=== PATIENT | female | born 1945 | race Caucasian/White ===

== ENCOUNTER 2020-02-25 12:43 | Emergency (ER) | payer MEDICARE, SELFPAY ==
[2020-02-25] VITALS (15 sets, daily range): BP systolic 140–167; BP diastolic 78–122; PULSE 70–92; RESP 12–48; TEMP 37.1; O2SAT 89–100; BMI 15.1
--- NOTE | 2020-02-25 13:12 | DI.CT.S_ITS ---
PROCEDURE: CT HEAD/BRAIN WO CON INDICATIONS: frequent falls TECHNIQUE: Noncontrast 4.5 mm thick angled axial sections acquired from the foramen magnum to the vertex, with coronal and sagittal reformats. For radiation dose reduction, the following was used: automated exposure control, adjustment of mA and/or kV according to patient size. COMPARISON: None. FINDINGS: Image quality: Excellent. CSF spaces: Basal cisterns are patent. No extra-axial fluid collections. The ventricles are symmetric in size and shape. Brain: No intracranial bleeds or masses. There is cerebral volume loss for age, with resultant ventricular and sulcal prominence. There are periventricular and deep white matter chronic small vessel ischemic changes including a lacunar infarct of uncertain chronicity in the left anterior limb internal capsule. There is intracranial internal carotid artery atherosclerosis. Skull and face: Calvarium and visualized facial bones appear intact, without suspicious lesions. Sinuses: Visualized sinuses and mastoids are clear. IMPRESSION: 1. No CT evidence of acute intracranial trauma. 2. No evidence of fracture or overlying soft tissue hematoma. Dictated by: Jess Bosch M.D. on 02/25/2020 at 13:37 Approved by: Jess Bosch M.D. on 02/25/2020 at 13:40
--- NOTE | 2020-02-25 13:12 | DI.RAD.S_ITS ---
PROCEDURE: XR HIP W PEL IF DONE RT 2V INDICATIONS: frequent fall, weak on right leg, difficulty walking TECHNIQUE: AP pelvis with lateral view(s) of the right hip(s). COMPARISON: None. FINDINGS: Bones: No fractures or dislocations. Mild symmetric degenerative femoroacetabular joint space loss. Pelvic ring appears intact. No suspicious bony lesions. Soft tissues: The visualized bowel gas pattern is normal. No suspicious soft tissue calcifications. Surgical clips in the right pelvis. IMPRESSION: 1. No acute or chronic appearing right hip fracture. 2. Mild, symmetric hip joint degeneration. 3. No visible pelvic fractures. Dictated by: Jess Bosch M.D. on 02/25/2020 at 13:53 Approved by: Jess Bosch M.D. on 02/25/2020 at 13:54
--- NOTE | 2020-02-25 13:17 | DI.CT.S_ITS ---
PROCEDURE: CT CERVICAL SPINE WO CON INDICATIONS: frequent falls TECHNIQUE: Noncontrast 3 mm thick sections acquired from the skull base to the T4 level. Sagittal and coronal reformats were then constructed. For radiation dose reduction, the following was used: automated exposure control, adjustment of mA and/or kV according to patient size. COMPARISON: None. FINDINGS: Image quality: Excellent. Bones: No fractures or pathologic subluxation. There is degenerative change at the latter dental interval with mild annular ligament calcification. There is severe degenerative facet joint change on the left at the L4-5 level which results in a grade 1 anterolisthesis and severe left foraminal narrowing. There is uncovertebral joint hypertrophy and facet arthropathy together on the right causing moderate right foraminal narrowing. Severe disc height loss and endplate degeneration at the C six seven levels present. No significant spinal stenosis. There is reversal of normal cervical lordosis in the lower cervical spine with the apex at C6-7. Visualized superior ribs are intact. Soft tissues: Prevertebral soft tissues are normal in thickness. No paravertebral hematomas. No apical pneumothoraces. Mild to moderate carotid bulb calcification. Diminutive thyroid gland.. IMPRESSION: 1. No acute cervical spine fracture or subluxation. 2. There are degenerative changes as described above which result in spondylolisthesis and foraminal narrowing. No significant central canal narrowing. Dictated by: Jess Bosch M.D. on 02/25/2020 at 13:43 Approved by: Jess Bosch M.D. on 02/25/2020 at 13:49
[2020-02-25 13:31] LABS: Add Manual Diff / Slide Review NO; Basophils Absolute Auto 100 /uL (0-100); Basophils Percent Auto 1.1 % (0-2); Eosinophils Absolute Auto 300 /uL (0-450); Eosinophils Percent Auto 3.6 % (2-4); Hematocrit 30.7 % (36-46); Hemoglobin 10.3 g/dL (12.0-16.0); Lymphocytes Absolute Auto 2100 /uL (1100-4500); Lymphocytes Percent Auto 25.7 % (25-40); Mean Corpuscular HGB Conc 33.6 % (30-36); Mean Corpuscular Hemoglobin 35.2 PG (26-34); Mean Corpuscular Volume 104.6 fL (80-100); Monocytes Absolute Auto 800 /uL (0-900); Monocytes Percent Auto 9.5 % (3-14); Neutrophils Absolute Auto 4900 /uL (1500-7000); Neutrophils Percent Auto 60.1 % (50-75); Platelet Count 329 X10^3/uL (150-400); Red Blood Cell Count 2.93 X10^6/uL (4.0-5.2); Red Cell Distribution Width 15.2 % (11.6-14.8); White Blood Cell Count 8.2 X10^3/uL (4.5-11.0)
[2020-02-25 13:38] LABS: INR 1.2 (0.9-1.3); Prothrombin Time 14.2 SECONDS (10.1-12.7)
[2020-02-25 13:41] LABS: PTT Partial Thromboplastin Tim 32 SECONDS (26.4-36.2)
[2020-02-25 13:43] LABS: Alanine Aminotransferase 62 IU/L (<35); Albumin 2.4 g/dL (3.5-5.0); Albumin Globulin Ratio 0.8 (1.0-2.8); Alkaline Phosphatase 213 U/L (38-126); Aspartate Aminotransferase 157 IU/L (14-36); BUN Creatinine Ratio 8.9 (6-22); Bilirubin Total 1.2 mg/dL (0.2-1.3); Blood Urea Nitrogen 10 mg/dL (7-17); Calcium 7.9 mg/dL (8.4-10.2); Carbon Dioxide 33 mmol/L (22-32); Chloride 104 mmol/L (98-107); Creatine Kinase 380 U/L (30-135); Estimated Glomerular Filt Rate 47.3 mL/min (>60); Globulin 3.2 g/dL (1.7-4.1); Glucose 86 mg/dL (80-110); Sodium 139 mmol/L (137-145); Total Protein 5.6 g/dL (6.3-8.2)
[2020-02-25 13:44] LABS: Lipase < 10 U/L (23-300); Potassium 2.5 mmol/L (3.4-5.1)
[2020-02-25 13:55] LABS: NT-proBNP (BNP-Adult 18+) 3480 pg/mL (<450); Troponin I 0.013 ng/mL (0.01-0.034)
[2020-02-25 13:59] LABS: CKMB % Relative Index 0.4 % (1.5-5.0); Creatine Kinase MB 1.34 ng/mL (<2.37); HEMOLYSIS 18 (0-50)
[2020-02-25] MEDS: POTASSIUM CHLORIDE 40 MEQ in SODIUM CHLORIDE 0.9% 500 ML 130 ML IV (14:03)
[2020-02-25] MEDS: POTASSIUM CHLORIDE 20 MEQ/15 ML UDC PO (14:10)
--- NOTE | 2020-02-25 18:56 | ED.FALL ---
HPI - Fall <PRETTY Cueva - Last Filed: 02/25/20 20:30> General Chief Complaint: Fall Stated Complaint: Took Hard Fall, Hit Head, Confusion, Keeps Falling Time Seen by Provider: 02/25/20 12:50 Source: patient Mode of arrival: Ambulatory Limitations: no limitations History of Present Illness HPI Narrative: This is a 75-year-old female, nonsmoker, who has history of pancreatic cancer and adrenal gland insufficiency presents to ED with her grandson with chief complain of frequent falls last 10 days and generalize weakness and right hip pain. Patient reports she had major fall 10 days ago in the bathroom after her right foot got caught on a bottom of sink. Patient reports she has been having difficulty with balance as well. Patient denies had chest pain, breathing difficulty, dizziness prior to recent falls. Patient denies recent vomiting, or diarrhea. Patient is not currently on anticoagulants or aspirin. Patient denies losing consciousness, mid cervical tenderness, weakness to extremities but states joint from hip ad knee is not communicating well. Patient had history of extensive abdominal surgery for pancreatic cancer/Whipple surgery involving bile duct, pancreas, and partial stomach 13 years ago. Patient also states she has 1 left kidney. Patient states she had lowest weight as 81 lb in the past with atrophy major muscles due to pancreatic cancer. Patient has his primary care physician, political science faculty member, surgeons all located in [facility]. Patient denies losing consciousness, vision change, speech difficulty, decreased sensation, 1 side of her body or headaches. She had a follow-up with her political science faculty member in October with extensive blood tests and exams and she was told things are looking great. She denies history of heart failure or taking diuretics. She states she had history of palpitations and dizzy spells due to adrenal gland insufficiency which has been controlled well. Patient denies feeling dehydrated or dizziness with changing in position. Patient currently does not use a walker or cane for walking. Related Data Home Medications Medication Instructions Recorded Confirmed [VITAMIN B-12] PO QDAY #0 08/28/17 [VITAMIN D] 5,000 iu PO QDAY #0 08/28/17 Previous Rx's Medication Instructions Recorded clobetasol 0 TOPICAL SEE INSTRUCTIONS #15 gm 07/02/17 ipratropium-albuterol [Combivent 1 puff INH SEE INSTRUCTIONS #1 inh 08/28/17 Respimat] potassium chloride 10 meq PO DAILY 3 Days #3 tab 02/25/20 Allergies Allergy/AdvReac Type Severity Reaction Status Date / Time aspirin [ASPIRIN] Allergy Unknown kidney Unverified 11/12/17 12:16 probs ibuprofen [IBUPROFEN] Allergy Unknown Unverified 11/12/17 12:16 Iodine and Iodide Containing Allergy Unknown pt only Unverified 11/12/17 12:16 Produc has one [IODINE AND IODIDE kidney CONTAINING PRODUC] Review of Systems <PRETTY Cueva - Last Filed: 02/25/20 20:30> Review of Systems Narrative: General: Denies fever, chills, (+) fatigue, malaise, sweats. HEENT: Denies sinus pain, ear pain, sore throat, difficulty swallowing, dizziness. Respiratory: Denies dyspnea, cough, wheezing, hemoptysis, sputum. Cardiovascular: Denies chest pain, palpitations, orthopnea, edema. Gastrointestinal: Denies nausea, vomiting, abdominal pain, diarrhea, constipation, melena. : Denies dysuria, frequency, incontinence, hematuria, urinary retention. Musculoskeletal: See HPI Skin: Denies rash, skin lesions, or other. Neurologic: See HPI Psychiatric: No concerning psychosocial issues. 12-point review of systems is negative except for those stated above. Patient History <PRETTY Cueva - Last Filed: 02/25/20 20:30> Medical History Adrenal insufficiency (Acute) Surgical History Status post breast reduction Status post hysterectomy Social History Smoking Status: Never smoker Smoking Status: Never smoker tobacco type: cigarettes alcohol intake frequency: holidays/special occasions only Alcohol type: wine Substance Use Type: does not use Exam <PRETTY Cueva - Last Filed: 02/25/20 20:30> Narrative Exam Narrative: GEN: Alert, oriented x 3, thin and fragile appearing, in no acute distress. Head: Normal cephalic, atraumatic. No scalp or temporal tenderness, palpable mass or rash. EYES: Pupils are equal, round, and reactive to light and accommodation. Extraocular muscles are intact bilaterally. There is no subconjunctival hemorrhage, exudate and sclera non-icteric. ENT: Bilateral auditory canals and tympanic membranes clear. Hearing grossly intact. Nose without bleeding, purulent discharge or deviation. Facial sinuses nontender to palpate. Mucous membrane slightly dry, no mucosal lesion. Throat without erythema, tonsillar hypertrophy or exudate. Uvula in midline, airway patent. Neck: Trachea in midline. No JVD, non-tender without lymphadenopathy. No masses or thyroid megaly. Supple, non-tender and no meningeal signs. CARDIAC: Normal regular rate and rhythm without murmurs, gallops, or rubs. No chest wall tenderness. Bilateral ankle non-pitting mild swelling, cyanosis or pallor. Capillary refill is less than 2 seconds. RESPIRATORY: Lungs are clear to auscultate bilaterally. No cough, wheezes, rales, or rhonchi. No stridor, respiratory distress, increase work of breathing, or accessary muscle used. ABD: Abdomen soft, nontender and no significant tenderness to palpate or increased from baseline. No guarding or rebound tenderness to palpate. Bowel sounds are normal in all 4 quadrants. There is no palpable masses or organomegaly. EXT: Full painless ROM of all extremities with no loss of sensation, strength, effusion. SKIN: Warm, dry, pale color for patient. Small superficial abrasion on right knee. No erythema, lesions or rash over other visible areas. BACK: Nontender without deformity or crepitance. No flank tenderness. NEUROLOGICAL: Alert and oriented to place, time and person. Sensation and motor function intact bilaterally. No facial droops, dysphasia. PSYCHIATRIC: Good judgement and reason, without hallucinations, abnormal affect or abnormal behaviors during the examination. Patient is not suicidal. Initial Vital Signs Initial Vital Signs: Vital Signs Temperature 98.7 F 02/25/20 13:12 Pulse Rate 74 02/25/20 13:12 Respiratory Rate 12 02/25/20 13:12 Blood Pressure 160/79 H 02/25/20 13:12 Pulse Oximetry 100 02/25/20 13:12 <Robe Allen MD - Last Filed: 02/26/20 08:28> Initial Vital Signs Initial Vital Signs: Vital Signs Temperature 98.7 F 02/25/20 13:12 Pulse Rate 74 02/25/20 13:12 Respiratory Rate 12 02/25/20 13:12 Blood Pressure 160/79 H 02/25/20 13:12 Pulse Oximetry 100 02/25/20 13:12 Scores <Saeed BarPRETTY chaudhry - Last Filed: 02/25/20 20:30> GCS Bentley coma scale eye opening: Spontaneous Harrison coma scale verbal response: Orientated Bentley coma scale motor response: Obey commands Harrison coma scale total score: 15 Course <Saeed McleanPRETTY May - Last Filed: 02/25/20 20:30> Orders Ordered: Discontinued Medications Potassium Chloride 40 meq/ (Sodium Chloride) 520 mls @ 130 mls/hr IV NOW ONE Stop: 02/25/20 17:48 Last Infusion: 02/25/20 18:47 Dose: 0 mls/hr Documented by: JAM Cosigned by: JOSEPH Admin: 02/25/20 14:03 Dose: 130 mls/hr Documented by: JAM Cosigned by: TAMIA Potassium Chloride (Potassium Chloride) 20 meq PO NOW ONE Stop: 02/25/20 13:49 Last Admin: 02/25/20 14:10 Dose: 20 meq Documented by: JAM Vital Signs Vital signs: Vital Signs - 8 hr 02/25/20 13:12 02/25/20 13:35 02/25/20 14:00 Temperature 98.7 F Pulse Rate 74 71 71 Respiratory Rate 12 48 H 32 H Blood Pressure 160/79 H Pulse Oximetry 100 89 L 99 02/25/20 14:14 02/25/20 14:30 02/25/20 15:00 Temperature Pulse Rate 80 85 92 H Respiratory Rate 34 H 30 H 21 Blood Pressure 160/122 H 167/107 H 152/90 H Pulse Oximetry 97 95 97 02/25/20 15:30 02/25/20 16:00 02/25/20 16:30 Temperature Pulse Rate 86 82 70 Respiratory Rate 21 25 H 20 Blood Pressure 143/87 H 140/83 142/85 H Pulse Oximetry 97 97 98 02/25/20 17:00 02/25/20 17:30 02/25/20 18:00 Temperature Pulse Rate 72 72 73 Respiratory Rate 22 23 18 Blood Pressure 147/84 H 142/84 H 158/78 H Pulse Oximetry 97 96 98 02/25/20 18:30 02/25/20 19:00 02/25/20 19:30 Temperature Pulse Rate 73 72 76 Respiratory Rate 16 20 17 Blood Pressure 153/79 H 160/82 H 149/86 H Pulse Oximetry 98 98 97 <Robe Allen MD - Last Filed: 02/26/20 08:28> Orders Ordered: Discontinued Medications Potassium Chloride 40 meq/ (Sodium Chloride) 520 mls @ 130 mls/hr IV NOW ONE Stop: 02/25/20 17:48 Last Infusion: 02/25/20 18:47 Dose: 0 mls/hr Documented by: JAM Cosigned by: JOSEPH Admin: 02/25/20 14:03 Dose: 130 mls/hr Documented by: JAM Cosigned by: TAMIA Potassium Chloride (Potassium Chloride) 20 meq PO NOW ONE Stop: 02/25/20 13:49 Last Admin: 02/25/20 14:10 Dose: 20 meq Documented by: JAM Vital Signs Vital signs: Vital Signs - 8 hr 02/25/20 13:12 02/25/20 13:35 02/25/20 14:00 Temperature 98.7 F Pulse Rate 74 71 71 Respiratory Rate 12 48 H 32 H Blood Pressure 160/79 H Pulse Oximetry 100 89 L 99 02/25/20 14:14 02/25/20 14:30 02/25/20 15:00 Temperature Pulse Rate 80 85 92 H Respiratory Rate 34 H 30 H 21 Blood Pressure 160/122 H 167/107 H 152/90 H Pulse Oximetry 97 95 97 02/25/20 15:30 02/25/20 16:00 02/25/20 16:30 Temperature Pulse Rate 86 82 70 Respiratory Rate 21 25 H 20 Blood Pressure 143/87 H 140/83 142/85 H Pulse Oximetry 97 97 98 02/25/20 17:00 02/25/20 17:30 02/25/20 18:00 Temperature Pulse Rate 72 72 73 Respiratory Rate 22 23 18 Blood Pressure 147/84 H 142/84 H 158/78 H Pulse Oximetry 97 96 98 02/25/20 18:30 02/25/20 19:00 02/25/20 19:30 Temperature Pulse Rate 73 72 76 Respiratory Rate 16 20 17 Blood Pressure 153/79 H 160/82 H 149/86 H Pulse Oximetry 98 98 97 MDM - Fall <PRETTY Cueva - Last Filed: 02/25/20 20:30> Differential Diagnosis Differential diagnosis: Likely other (Electrolytes imbalance, intracranial hemorrhage, C-spine fracture, hip fracture, contusion, arrhythmia) Medical Records Attestation: I reviewed the patient's medical records. Lab Data Attestation: I reviewed the patient's lab results. Result diagrams: 02/25/20 13:10 02/25/20 18:46 Labs: Lab Results 02/25/20 02/25/20 02/25/20 Range/Units 13:10 13:10 13:10 WBC 8.2 (4.5-11.0) X10^3/uL RBC 2.93 L (4.0-5.2) X10^6/uL Hgb 10.3 L (12.0-16.0) g/dL Hct 30.7 L (36-46) % MCV 104.6 H (80-100) fL MCH 35.2 H (26-34) PG MCHC 33.6 (30-36) % RDW 15.2 H (11.6-14.8) % Plt Count 329 (150-400) X10^3/uL Neut % (Auto) 60.1 (50-75) % Lymph % (Auto) 25.7 (25-40) % Maverick % (Auto) 9.5 (3-14) % Eos % (Auto) 3.6 (2-4) % Baso % (Auto) 1.1 (0-2) % Neut # (Auto) 4900 (6017-2842) /uL Lymph # (Auto) 2100 (9908-5774) /uL Maverick # (Auto) 800 (0-900) /uL Eos # (Auto) 300 (0-450) /uL Baso # (Auto) 100 (0-100) /uL PT 14.2 H (10.1-12.7) SECONDS INR 1.2 (0.9-1.3) APTT 32 (26.4-36.2) SECONDS Sodium 139 (137-145) mmol/L Potassium 2.5 L* (3.4-5.1) mmol/L Chloride 104 (98-107) mmol/L Carbon Dioxide 33 H (22-32) mmol/L BUN 10 (7-17) mg/dL Creatinine 1.12 H (0.52-1.04) mg/dL Estimated GFR 47.3 L (>60) mL/min BUN/Creatinine Ratio 8.9 (6-22) Glucose 86 (80-110) mg/dL Calcium 7.9 L (8.4-10.2) mg/dL Total Bilirubin 1.2 (0.2-1.3) mg/dL AST 157 H (14-36) IU/L ALT 62 H (<35) IU/L Alkaline Phosphatase 213 H (38-126) U/L Total Creatine Kinase 380 H (30-135) U/L CK-MB (CK-2) 1.34 (<2.37) ng/mL CK-MB (CK-2) Rel Index 0.4 L (1.5-5.0) % Troponin I 0.013 (0.01-0.034) ng/mL NT-Pro-B Natriuret Pep 3480 H (<450) pg/mL Total Protein 5.6 L (6.3-8.2) g/dL Albumin 2.4 L (3.5-5.0) g/dL Globulin 3.2 (1.7-4.1) g/dL Albumin/Globulin Ratio 0.8 L (1.0-2.8) Lipase (23-300) U/L 02/25/20 02/25/20 Range/Units 13:10 18:46 WBC (4.5-11.0) X10^3/uL RBC (4.0-5.2) X10^6/uL Hgb (12.0-16.0) g/dL Hct (36-46) % MCV (80-100) fL MCH (26-34) PG MCHC (30-36) % RDW (11.6-14.8) % Plt Count (150-400) X10^3/uL Neut % (Auto) (50-75) % Lymph % (Auto) (25-40) % Maverick % (Auto) (3-14) % Eos % (Auto) (2-4) % Baso % (Auto) (0-2) % Neut # (Auto) (4300-5523) /uL Lymph # (Auto) (6941-6785) /uL Maverick # (Auto) (0-900) /uL Eos # (Auto) (0-450) /uL Baso # (Auto) (0-100) /uL PT (10.1-12.7) SECONDS INR (0.9-1.3) APTT (26.4-36.2) SECONDS Sodium 139 (137-145) mmol/L Potassium 3.4 (3.4-5.1) mmol/L Chloride 109 H (98-107) mmol/L Carbon Dioxide 28 (22-32) mmol/L BUN 9 (7-17) mg/dL Creatinine 1.15 H (0.52-1.04) mg/dL Estimated GFR 45.9 L (>60) mL/min BUN/Creatinine Ratio 7.8 (6-22) Glucose 81 (80-110) mg/dL Calcium 7.6 L (8.4-10.2) mg/dL Total Bilirubin (0.2-1.3) mg/dL AST (14-36) IU/L ALT (<35) IU/L Alkaline Phosphatase (38-126) U/L Total Creatine Kinase (30-135) U/L CK-MB (CK-2) (<2.37) ng/mL CK-MB (CK-2) Rel Index (1.5-5.0) % Troponin I (0.01-0.034) ng/mL NT-Pro-B Natriuret Pep (<450) pg/mL Total Protein (6.3-8.2) g/dL Albumin (3.5-5.0) g/dL Globulin (1.7-4.1) g/dL Albumin/Globulin Ratio (1.0-2.8) Lipase < 10 L (23-300) U/L Imaging Data CT-Head: Radiologist's Impression: [address] [address] [address] Scan Report Signed Patient: Cathy Santiago [facility]#: [id number] : 4Acct:[id number] Age/Sex: 75 / FDate of Service: 02/25/20 Loc: ED Accession Number: [id number] Procedure: CT head/brain wo con Ordering Provider: Saeed Thomason PROCEDURE: CT HEAD/BRAIN WO CON INDICATIONS: frequent falls TECHNIQUE: Noncontrast 4.5 mm thick angled axial sections acquired from the foramen magnum to the vertex, with coronal and sagittal reformats. For radiation dose reduction, the following was used: automated exposure control, adjustment of mA and/or kV according to patient size. COMPARISON: None. FINDINGS: Image quality: Excellent. CSF spaces: Basal cisterns are patent. No extra-axial fluid collections. The ventricles are symmetric in size and shape. Brain: No intracranial bleeds or masses. There is cerebral volume loss for age, with resultant ventricular and sulcal prominence. There are periventricular and deep white matter chronic small vessel ischemic changes including a lacunar infarct of uncertain chronicity in the left anterior limb internal capsule. There is intracranial internal carotid artery atherosclerosis. Skull and face: Calvarium and visualized facial bones appear intact, without suspicious lesions. Sinuses: Visualized sinuses and mastoids are clear. IMPRESSION: 1. No CT evidence of acute intracranial trauma. 2. No evidence of fracture or overlying soft tissue hematoma. Dictated by: Jess Bosch M.D. on 02/25/2020 at 13:37 Approved by: Jess Bosch M.D. on 02/25/2020 at 13:40 CT-C spine: Radiologist's Impression: [place] [address] CT Scan Report Signed Patient: Cathy Santiago [facility]#: [id number] : 4Acct:[id number] Age/Sex: 75 / FDate of Service: 02/25/20 Loc: ED Accession Number: [id number] Procedure: CT cervical spine wo con Ordering Provider: Saeed Thomason [employer] PROCEDURE: CT CERVICAL SPINE WO CON INDICATIONS: frequent falls TECHNIQUE: Noncontrast 3 mm thick sections acquired from the skull base to the T4 level. Sagittal and coronal reformats were then constructed. For radiation dose reduction, the following was used: automated exposure control, adjustment of mA and/or kV according to patient size. COMPARISON: None. FINDINGS: Image quality: Excellent. Bones: No fractures or pathologic subluxation. There is degenerative change at the latter dental interval with mild annular ligament calcification. There is severe degenerative facet joint change on the left at the L4-5 level which results in a grade 1 anterolisthesis and severe left foraminal narrowing. There is uncovertebral joint hypertrophy and facet arthropathy together on the right causing moderate right foraminal narrowing. Severe disc height loss and endplate degeneration at the C six seven levels present. No significant spinal stenosis. There is reversal of normal cervical lordosis in the lower cervical spine with the apex at C6-7. Visualized superior ribs are intact. Soft tissues: Prevertebral soft tissues are normal in thickness. No paravertebral hematomas. No apical pneumothoraces. Mild to moderate carotid bulb calcification. Diminutive thyroid gland.. IMPRESSION: 1. No acute cervical spine fracture or subluxation. 2. There are degenerative changes as described above which result in spondylolisthesis and foraminal narrowing. No significant central canal narrowing. Dictated by: Jess Bosch M.D. on 02/25/2020 at 13:43 Approved by: Jess Bosch M.D. on 02/25/2020 at 13:49 XR-Hip RT: Radiologist's Impression: [address] [address] XRay Report Signed Patient: Cathy Santiago [facility]#: [id number] : 4Acct:[id number] Age/Sex: 75 / FDate of Service: 02/25/20 Loc: ED Accession Number: [id number] Procedure: XR hip w pel if done RT 2V Ordering Provider: Saeed Thomason PROCEDURE: XR HIP W PEL IF DONE RT 2V INDICATIONS: frequent fall, weak on right leg, difficulty walking TECHNIQUE: AP pelvis with lateral view(s) of the right hip(s). COMPARISON: None. FINDINGS: Bones: No fractures or dislocations. Mild symmetric degenerative femoroacetabular joint space loss. Pelvic ring appears intact. No suspicious bony lesions. Soft tissues: The visualized bowel gas pattern is normal. No suspicious soft tissue calcifications. Surgical clips in the right pelvis. IMPRESSION: 1. No acute or chronic appearing right hip fracture. 2. Mild, symmetric hip joint degeneration. 3. No visible pelvic fractures. Dictated by: Jess Bosch M.D. on 02/25/2020 at 13:53 Approved by: Jess Bosch M.D. on 02/25/2020 at 13:54 ECG Data Attestation: I personally reviewed and interpreted this ECG as follows: Prior ECG tracings: not available for review Interpretation: Accelerated junctional rhythm rate at 78. Low voltage QRS. Normal [place]. QRS duration 88, QT/QTc 454/504, prolonged QT No acute ST elevation MDM Narrative Medical decision making narrative: This is a 75-year-old female who presents to ED with her grandson with chief complain of frequent falls, right hip pain and generalized weakness. Patient has chronic history of pancreatic cancer, has only one kidney who had extensive abdominal surgeries with with weight loss. At one point, patient was down to 81 lb according to patient. Patient denies recent vomiting, diarrhea, or frequent stools. Physical exam is unremarkable but patient appears to be thin and frail. Skin color is slightly pale. Head and C-spine CT was unremarkable without acute findings. EKG shows no acute ST changes but prolonged QT with junctional rhythm rate at 73. Patient denies chest pain, breathing difficulty, or dizziness prior to falls. Right hip and pelvis x-ray indicates no acute findings. Blood test shows no leukocytosis. Slightly anemic with H&H of 10.3/30.7. Slightly increased PT of 14.3 with normal platelet counts. Showed hypokalemia of 2.5 according to initial blood test. Kidney function Test was decreased with creatinine level of 1.12 and eGFR of 47.3. Slightly decreased albumin and protein. Slight hypocalcemia of 7.9. Liver function tests were abnormal and slightly elevated. AST of 157, ALT of 62, alk phosphatase of 213. Patient reports she chronically has abnormal liver function test. Cardiac enzymes were within normal limits. ProBNP was obtained and shows 3480. Although patient denies dyspnea, she has mild bilateral ankle swelling. Patient was medicated with 40 mEq of potassium which ran over 4 hours and replaced with 20 mEq of oral potassium which she was able to tolerate. BMP was drawn and shows K of 3.4 which improved significantly. Slightl worsened kidney function test, creatinine of 1.95 with estimated GFR of 49.9. Slightly decreased calcium level 7.6. She was able to tolerate p.o. fluids and snacks without difficulty. She was able to ambulate around nursing san with standby assistance in stable gait. Patient is discharged to home with 10 mEq of KCl daily for next 3 days. Patient advised to follow-up with her primary care physician for recheck on her labs, anemia, hypokalemia, hypocalcemia, balance difficulty and falls. Patient also advised to follow-up with her political science faculty member on elevated proBNP and prolonged QT. Also patient advised to eat nutritious meals to help with anemia, and abnormal electrolytes. Unfortunately since this is her primary care physician and specialty doctors at [facility], we do not have previous lab test as baseline or EKGs. Given patient has 1 kidney, she may have decreased kidney function test previously. Patient reported liver function test for blood test in the past. It is unclear how long or etiology of hypokalemia since patient denies on diuretics, nausea or vomiting, or diarrhea. Return precautions were discussed with the patient and patient verbalized understanding and agreement with treatment plan. Patient's case was discussed with Dr. Allen with physical finding, labs, and treatment plan. <Robe Allen MD - Last Filed: 02/26/20 08:28> Lab Data Labs: Lab Results 02/25/20 02/25/20 02/25/20 Range/Units 13:10 13:10 13:10 WBC 8.2 (4.5-11.0) X10^3/uL RBC 2.93 L (4.0-5.2) X10^6/uL Hgb 10.3 L (12.0-16.0) g/dL Hct 30.7 L (36-46) % MCV 104.6 H (80-100) fL MCH 35.2 H (26-34) PG MCHC 33.6 (30-36) % RDW 15.2 H (11.6-14.8) % Plt Count 329 (150-400) X10^3/uL Neut % (Auto) 60.1 (50-75) % Lymph % (Auto) 25.7 (25-40) % Maverick % (Auto) 9.5 (3-14) % Eos % (Auto) 3.6 (2-4) % Baso % (Auto) 1.1 (0-2) % Neut # (Auto) 4900 (5154-7351) /uL Lymph # (Auto) 2100 (4940-0902) /uL Maverick # (Auto) 800 (0-900) /uL Eos # (Auto) 300 (0-450) /uL Baso # (Auto) 100 (0-100) /uL PT 14.2 H (10.1-12.7) SECONDS INR 1.2 (0.9-1.3) APTT 32 (26.4-36.2) SECONDS Sodium 139 (137-145) mmol/L Potassium 2.5 L* (3.4-5.1) mmol/L Chloride 104 (98-107) mmol/L Carbon Dioxide 33 H (22-32) mmol/L BUN 10 (7-17) mg/dL Creatinine 1.12 H (0.52-1.04) mg/dL Estimated GFR 47.3 L (>60) mL/min BUN/Creatinine Ratio 8.9 (6-22) Glucose 86 (80-110) mg/dL Calcium 7.9 L (8.4-10.2) mg/dL Total Bilirubin 1.2 (0.2-1.3) mg/dL AST 157 H (14-36) IU/L ALT 62 H (<35) IU/L Alkaline Phosphatase 213 H (38-126) U/L Total Creatine Kinase 380 H (30-135) U/L CK-MB (CK-2) 1.34 (<2.37) ng/mL CK-MB (CK-2) Rel Index 0.4 L (1.5-5.0) % Troponin I 0.013 (0.01-0.034) ng/mL NT-Pro-B Natriuret Pep 3480 H (<450) pg/mL Total Protein 5.6 L (6.3-8.2) g/dL Albumin 2.4 L (3.5-5.0) g/dL Globulin 3.2 (1.7-4.1) g/dL Albumin/Globulin Ratio 0.8 L (1.0-2.8) Lipase (23-300) U/L 02/25/20 02/25/20 Range/Units 13:10 18:46 WBC (4.5-11.0) X10^3/uL RBC (4.0-5.2) X10^6/uL Hgb (12.0-16.0) g/dL Hct (36-46) % MCV (80-100) fL MCH (26-34) PG MCHC (30-36) % RDW (11.6-14.8) % Plt Count (150-400) X10^3/uL Neut % (Auto) (50-75) % Lymph % (Auto) (25-40) % Maverick % (Auto) (3-14) % Eos % (Auto) (2-4) % Baso % (Auto) (0-2) % Neut # (Auto) (2934-8770) /uL Lymph # (Auto) (5069-2076) /uL Maverick # (Auto) (0-900) /uL Eos # (Auto) (0-450) /uL Baso # (Auto) (0-100) /uL PT (10.1-12.7) SECONDS INR (0.9-1.3) APTT (26.4-36.2) SECONDS Sodium 139 (137-145) mmol/L Potassium 3.4 (3.4-5.1) mmol/L Chloride 109 H (98-107) mmol/L Carbon Dioxide 28 (22-32) mmol/L BUN 9 (7-17) mg/dL Creatinine 1.15 H (0.52-1.04) mg/dL Estimated GFR 45.9 L (>60) mL/min BUN/Creatinine Ratio 7.8 (6-22) Glucose 81 (80-110) mg/dL Calcium 7.6 L (8.4-10.2) mg/dL Total Bilirubin (0.2-1.3) mg/dL AST (14-36) IU/L ALT (<35) IU/L Alkaline Phosphatase (38-126) U/L Total Creatine Kinase (30-135) U/L CK-MB (CK-2) (<2.37) ng/mL CK-MB (CK-2) Rel Index (1.5-5.0) % Troponin I (0.01-0.034) ng/mL NT-Pro-B Natriuret Pep (<450) pg/mL Total Protein (6.3-8.2) g/dL Albumin (3.5-5.0) g/dL Globulin (1.7-4.1) g/dL Albumin/Globulin Ratio (1.0-2.8) Lipase < 10 L (23-300) U/L Discharge Plan Departure Patient Disposition: Home Clinical Impression: Increase in creatinine, Hypokalemia Fall Qualifiers: Encounter type: initial encounter Qualified Code(s): W19.XXXA - Unspecified fall, initial encounter Anemia Qualifiers: Anemia type: unspecified type Qualified Code(s): D64.9 - Anemia, unspecified Discharge Date/Time: 02/25/20 20:17 Instructions: DI for Hypokalemia, DI for Anemia of Chronic Disease, How to Prevent Falls Activity Restrictions/Additional Instructions: You have been diagnosed with [falls, hypokalemia initally 2.5 after IV and oral medication it has improved to 3.4, anemia and today's H/H count is 10.3 and 30.7, low in total protein and albumin. Hypocalcemia of 7.6 with slightly elevated liver function tests. Normal cardiac enzyme tests today. However proBNP was elevated to 3480. Your EKG showed prolonged QT. Also your kidney function is slightly decreased and we do not have your baseline creatinine and estimated GFR. Today's creatinine level is 1.15 with eGFR of 45.9. The falls may due to electrolytes imbalance and low potassium level with generalized weakness. Head and neck CT was negative for acute findings. Right hip/pelvis x-ray was normal. You were able to ambulate in stable gait in ED before discharged to home.]. What to do: *Take your medications as directed. Take low dose of potassium chloride 10 mEq daily for next 3 days. This medication has been transmitted to [facility]. *Follow up with your primary care provider in 2-3 days, call for an appointment. Let them know you were seen in the ED and that we asked you to be seen in follow up. You need recheck on her electrolytes and other lab tests. Please eat nutritious food to help with electrolytes and anemia. You may require to take iron pill to help with anemia. Please use a walker or cane for mobility. You may require physical therapy evaluation and treatment for balance assessment which can be arranged by her primary care physician. *Return to ED if you have any new, worsening, or concerning symptoms, such as [chest pain, breathing difficulty, unable to tolerate fluids, fever, unable to void, or any acute concerns]. Prescriptions: New potassium chloride 10 mEq tablet extended release 10 meq PO DAILY 3 Days Qty: 3 RF: 0 No Action clobetasol 0.05 % gel 0 Topical SEE INSTRUCTIONS Qty: 15 RF: 2 [VITAMIN D] 5,000 iu PO QDAY Qty: 0 RF: 0 [VITAMIN B-12] PO QDAY Qty: 0 RF: 0 ipratropium-albuterol [Combivent Respimat] 4 GM mist 1 puff INH SEE INSTRUCTIONS Qty: 1 RF: 0
[2020-02-25 19:19] LABS: BUN Creatinine Ratio 7.8 (6-22); Blood Urea Nitrogen 9 mg/dL (7-17); Calcium 7.6 mg/dL (8.4-10.2); Carbon Dioxide 28 mmol/L (22-32); Chloride 109 mmol/L (98-107); Estimated Glomerular Filt Rate 45.9 mL/min (>60); Glucose 81 mg/dL (80-110); HEMOLYSIS 36 (0-50); Potassium 3.4 mmol/L (3.4-5.1); Sodium 139 mmol/L (137-145)
== END 2020-02-25 20:17 | disposition home or self-care (01) ==
PROVIDERS: Emergency Provider Nurse Practitioner Family; PCP Family Medicine
DX: R79.89 Other specified abnormal findings of blood chemistry (principal); R29.6 Repeated falls; E87.6 Hypokalemia; R53.1 Weakness; D64.9 Anemia, unspecified; S09.90XA Unspecified injury of head, initial encounter; M25.551 Pain in right hip; W19.XXXA Unspecified fall, initial encounter; Z85.07 Personal history of malignant neoplasm of pancreas; Z90.5 Acquired absence of kidney; R63.6 Underweight
CPT/HCPCS: 36415; 70450; 72125; 73502; 80048; 80053; 82550; 82553; 83690; 83880; 84484; 85025; 85610; 85730; 93005; 96365; 96366; 99284; J3480

== ENCOUNTER → 2020-04-25 09:49 | Outpatient (CLI) | payer MEDICARE, SELFPAY ==
[2020-04-25 10:54] LABS: Add Manual Diff / Slide Review NO; Basophils Absolute Auto 100 /uL (0-100); Basophils Percent Auto 1.3 % (0-2); Eosinophils Absolute Auto 300 /uL (0-450); Eosinophils Percent Auto 3.6 % (2-4); Hematocrit 32.8 % (36-46); Hemoglobin 10.7 g/dL (12.0-16.0); Lymphocytes Absolute Auto 2100 /uL (1100-4500); Lymphocytes Percent Auto 25.8 % (25-40); Mean Corpuscular HGB Conc 32.6 % (30-36); Mean Corpuscular Volume 104.3 fL (80-100); Monocytes Absolute Auto 600 /uL (0-900); Monocytes Percent Auto 7.3 % (3-14); Neutrophils Absolute Auto 5200 /uL (1500-7000); Platelet Count 297 X10^3/uL (150-400); Red Blood Cell Count 3.15 X10^6/uL (4.0-5.2); Red Cell Distribution Width 15.3 % (11.6-14.8); White Blood Cell Count 8.3 X10^3/uL (4.5-11.0)
[2020-04-25 11:06] LABS: Prothrombin Time 11.9 SECONDS (10.1-12.7)
[2020-04-25 11:22] LABS: Alanine Aminotransferase 50 IU/L (<35); Albumin 3.7 g/dL (3.5-5.0); Albumin Globulin Ratio 1.1 (1.0-2.8); Alkaline Phosphatase 129 U/L (38-126); Aspartate Aminotransferase 51 IU/L (14-36); BUN Creatinine Ratio 16.1 (6-22); Bilirubin Total 0.3 mg/dL (0.2-1.3); Blood Urea Nitrogen 23 mg/dL (7-17); Calcium 9.1 mg/dL (8.4-10.2); Carbon Dioxide 13 mmol/L (22-32); Chloride 119 mmol/L (98-107); Estimated Glomerular Filt Rate 35.7 mL/min (>60); Globulin 3.5 g/dL (1.7-4.1); Glucose 92 mg/dL (80-110); HEMOLYSIS < 15 (0-50); Potassium 4.2 mmol/L (3.4-5.1); Sodium 142 mmol/L (137-145); Total Protein 7.2 g/dL (6.3-8.2)
== END ==
PROVIDERS: PCP Family Medicine
DX: K76.6 Portal hypertension (principal)
CPT/HCPCS: 36415; 80053; 85025; 85610

== ENCOUNTER → 2020-05-05 08:23 | Outpatient (CLI) | payer MEDICARE, SELFPAY ==
[2020-05-05 09:40] LABS: Add Manual Diff / Slide Review NO; Basophils Absolute Auto 100 /uL (0-100); Eosinophils Absolute Auto 500 /uL (0-450); Eosinophils Percent Auto 5.7 % (2-4); Hematocrit 30.5 % (36-46); Hemoglobin 10.1 g/dL (12.0-16.0); Lymphocytes Absolute Auto 3400 /uL (1100-4500); Lymphocytes Percent Auto 39.1 % (25-40); Mean Corpuscular HGB Conc 33.2 % (30-36); Mean Corpuscular Hemoglobin 34.3 PG (26-34); Mean Corpuscular Volume 103.2 fL (80-100); Monocytes Absolute Auto 900 /uL (0-900); Monocytes Percent Auto 9.8 % (3-14); Neutrophils Absolute Auto 3900 /uL (1500-7000); Neutrophils Percent Auto 44.4 % (50-75); Platelet Count 375 X10^3/uL (150-400); Red Blood Cell Count 2.95 X10^6/uL (4.0-5.2); Red Cell Distribution Width 15.6 % (11.6-14.8); White Blood Cell Count 8.7 X10^3/uL (4.5-11.0)
[2020-05-05 09:41] LABS: Prothrombin Time 11.7 SECONDS (10.1-12.7)
[2020-05-05 09:52] LABS: Alanine Aminotransferase 41 IU/L (<35); Albumin 3.7 g/dL (3.5-5.0); Albumin Globulin Ratio 1.1 (1.0-2.8); Alkaline Phosphatase 145 U/L (38-126); Amylase 63 U/L (30-110); Aspartate Aminotransferase 53 IU/L (14-36); BUN Creatinine Ratio 17.6 (6-22); Bilirubin Total 0.3 mg/dL (0.2-1.3); Blood Urea Nitrogen 25 mg/dL (7-17); Carbon Dioxide 13 mmol/L (22-32); Chloride 118 mmol/L (98-107); Globulin 3.5 g/dL (1.7-4.1); Glucose 94 mg/dL (80-110); HEMOLYSIS < 15 (0-50); Lipase 12 U/L (23-300); Potassium 3.7 mmol/L (3.4-5.1); Sodium 141 mmol/L (137-145); Total Protein 7.2 g/dL (6.3-8.2)
== END ==
PROVIDERS: PCP Family Medicine; Referring Provider Internal Medicine Gastroenterology; Visit Provider Internal Medicine Gastroenterology
DX: K76.6 Portal hypertension (principal)
CPT/HCPCS: 36415; 80053; 82150; 83690; 85025; 85610

== ENCOUNTER → 2020-06-21 14:55 | Outpatient (CLI) | payer MEDICARE, SELFPAY ==
[2020-06-21 16:47] LABS: Prothrombin Time 11.3 SECONDS (10.1-12.7)
== END ==
PROVIDERS: PCP Family Medicine; Referring Provider Internal Medicine Gastroenterology; Visit Provider Internal Medicine Gastroenterology
DX: K76.6 Portal hypertension (principal)
CPT/HCPCS: 36415; 85610

== ENCOUNTER → 2020-07-07 15:08 | Outpatient (ROUT) | payer MEDICARE, SELFPAY ==
[2020-07-07 15:42] LABS: Add Manual Diff / Slide Review NO; Basophils Absolute Auto 100 /uL (0-100); Basophils Percent Auto 0.7 % (0-2); Eosinophils Absolute Auto 500 /uL (0-450); Eosinophils Percent Auto 5.5 % (2-4); Hematocrit 34.5 % (36-46); Hemoglobin 11.2 g/dL (12.0-16.0); Lymphocytes Absolute Auto 2700 /uL (1100-4500); Lymphocytes Percent Auto 29.1 % (25-40); Mean Corpuscular HGB Conc 32.4 % (30-36); Mean Corpuscular Hemoglobin 33.1 PG (26-34); Monocytes Absolute Auto 800 /uL (0-900); Monocytes Percent Auto 9.1 % (3-14); Neutrophils Absolute Auto 5200 /uL (1500-7000); Neutrophils Percent Auto 55.6 % (50-75); Platelet Count 320 X10^3/uL (150-400); Red Blood Cell Count 3.39 X10^6/uL (4.0-5.2); Red Cell Distribution Width 17.2 % (11.6-14.8); White Blood Cell Count 9.3 X10^3/uL (4.5-11.0)
[2020-07-07 16:42] LABS: Total Iron Binding Capacity 335 ug/dL (265-497); Transferrin 260 mg/dL (206-381)
[2020-07-07 18:14] LABS: HEMOLYSIS < 15 (0-50); Iron 120 ug/dL (37-170); Percent Iron Saturation 36 % (15-50)
== END ==
PROVIDERS: PCP Family Medicine; Visit Provider Internal Medicine
DX: C25.9 Malignant neoplasm of pancreas, unspecified (principal); R63.4 Abnormal weight loss; R00.2 Palpitations
CPT/HCPCS: 80053; 83540; 83550; 85025

== ENCOUNTER → 2020-07-10 19:43 | Outpatient (ROUT) | payer MEDICARE, SELFPAY ==
[2020-07-10 20:11] LABS: Alanine Aminotransferase 82 IU/L (<35); Albumin 3.3 g/dL (3.5-5.0); Alkaline Phosphatase 119 U/L (38-126); Aspartate Aminotransferase 156 IU/L (14-36); BUN Creatinine Ratio 20.1 (6-22); Bilirubin Total 0.3 mg/dL (0.2-1.3); Blood Urea Nitrogen 34 mg/dL (7-17); Calcium 8.5 mg/dL (8.4-10.2); Carbon Dioxide 16 mmol/L (22-32); Chloride 115 mmol/L (98-107); Estimated Glomerular Filt Rate 29.4 mL/min (>60); Globulin 3.4 g/dL (1.7-4.1); Glucose 170 mg/dL (80-110); HEMOLYSIS 18 (0-50); Sodium 137 mmol/L (137-145); Total Protein 6.7 g/dL (6.3-8.2)
[2020-07-10 20:42] LABS: Thyroid Stimulating Hormone 3.08 uIU/mL (0.47-4.68)
== END ==
PROVIDERS: PCP Family Medicine; Visit Provider Internal Medicine
DX: R00.2 Palpitations (principal); R63.4 Abnormal weight loss
CPT/HCPCS: 80053; 84443

== ENCOUNTER → 2020-07-17 14:37 | Outpatient (CLI) | payer MEDICARE, SELFPAY ==
--- NOTE | 2020-08-15 08:27 | P.HOLT.S_ITS ---
Electronic Engineering Technician Report Referral & Results Date Patient Seen: 07/17/20 Requesting provider: Ace Gaines Indication: Palpitations Duration of monitoring (days): 13 Diary information: There were 20 patient triggered events and 26 patient diary entries All 46 of these events were variably associated with (within 45 seconds) sinus rhythm and PACs Data: Minimum heart rate identified was 53 beats per minute at 04:58 on 07/30/2020 Maximum sinus heart rate was 109 beats per minute at 17:37 on 07/30/2020 Maximum overall heart rate was 152 beats per minute at 14:20 on 07/28/2020 during a 6 beat run of SVT Less than 1% of identified beats or either ventricular supraventricular ectopic in origin There were 5 runs of SVT/atrial tachycardia the longest lasting 10 beats and the fastest being the 6 beat run noted above Impression: 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 Overall frequency of either ventricular supraventricular ectopy was rare. Patient also with rare very short runs of SVT Clinical correlation suggested
== END ==
PROVIDERS: PCP Family Medicine; Referring Provider Internal Medicine; Visit Provider Internal Medicine
DX: R00.2 Palpitations (principal)
CPT/HCPCS: 0296T; 0298T

== ENCOUNTER 2020-11-15 16:06 | Emergency (ER) | payer MEDICARE, SELFPAY ==
[2020-11-15] VITALS (13 sets, daily range): BP systolic 119–159; BP diastolic 69–113; PULSE 56–117; RESP 18–38; TEMP 36.9; O2SAT 92–98; BMI 11.6
--- NOTE | 2020-11-15 16:34 | DI.RAD.S_ITS ---
PROCEDURE: XR CHEST 1V INDICATIONS: weakness TECHNIQUE: One view of the chest was acquired. COMPARISON: [facility], , CHEST 2 VIEW, 08/28/2017, 13:47. FINDINGS: Surgical changes and devices: Overlying monitoring wires. Lungs and pleura: Lungs are hyperinflated and hyperlucent. No pleural effusions or pneumothorax. Mediastinum: Mediastinal contours appear normal. Heart size is normal. Bones and chest wall: No suspicious bony lesions. Overlying soft tissues appear unremarkable. IMPRESSION: No acute cardiopulmonary disease. Dictated by: Jess Bosch M.D. on 11/15/2020 at 17:17 Approved by: Jess Bosch M.D. on 11/15/2020 at 17:18
[2020-11-15] MEDS: SODIUM CHLORIDE 0.9% 1,000 ML 1000 ML IV (16:44)
--- NOTE | 2020-11-15 16:44 | PC.NURSE ---
IV noted on left forearm is on right forearm # 20 g iv Right forearm near AC #22 right dorsarl mid forearm. Both flush well w/o s/s of infiltration.
--- NOTE | 2020-11-15 17:03 | ED.WEAKNESS ---
HPI - Weakness General Chief complaint: Weakness Stated complaint: Gernalized weakness Time Seen by Provider: 11/15/20 16:34 Source: patient and EMS Mode of arrival: EMS Limitations: no limitations History of Present Illness HPI Narrative: Patient is a cachectic thin 75-year-old female history of Whipple and kidney removal presenting today with generalized weakness. She is in a grocery store she says she extremely weak lightheaded and like she might pass out but she did not. She was lowered to the ground an EMS was called. She states that she is unable to keep wait on this is been an ongoing problem for her. She is followed by multiple ocular at [facility]. He says this morning she felt okay as well as yesterday. She denies any fever chills chest pain palpitations or weakness. She actually had an episode of diarrhea but she has only had 1. She says that they have struggled after her surgeries to keep her weight on the was medication that she was taking and was working but it seems to no longer be working. MD Complaint: generalized weakness Related Data Allergies Allergy/AdvReac Type Severity Reaction Status Date / Time aspirin [ASPIRIN] Allergy Unknown kidney Verified 11/15/20 16:36 probs ibuprofen [IBUPROFEN] Allergy Unknown Verified 11/15/20 16:36 Iodine and Iodide Containing Allergy Unknown pt only Verified 11/15/20 16:36 Produc has one [IODINE AND IODIDE kidney CONTAINING PRODUC] Review of Systems Review of Systems ROS Unobtainable: All systems reviewed & are unremarkable except as noted in HPI and below Constitutional Constitutional: Reports chills (Cannot keep warm), Reports fatigue, Denies fever(s), Denies frequent falls, Denies headache(s) and Reports poor appetite Eyes Eyes: Denies change in vision, Denies eye discharge, Denies irritation and Denies loss of vision ENT Ears, Nose, Mouth, and Throat: Denies headache(s) Cardiovascular Cardiovascular: Denies chest pain, Denies irregular heart rhythm, Denies lightheadedness, Denies palpitations and Denies orthopnea Gastrointestinal Gastrointestinal: Denies abdominal pain, Denies change in bowel habits, Reports diarrhea (x1), Denies nausea and Denies vomiting Musculoskeletal Musculoskeletal: Denies back pain, Denies myalgias and Denies myalgias Integumentary/Breasts Skin/Breast: Denies pruritus, Denies erythema, Denies rash and Denies wounds Neurologic Neurologic: Denies frequent falls, Denies headache(s) and Denies loss of vision Endocrine Endocrine: Reports fatigue and Denies palpitations Patient History Medical History Adrenal insufficiency Surgical History Status post breast reduction Status post hysterectomy Social History Smoking Status: Never smoker Smoking Status: Never smoker tobacco type: cigarettes alcohol intake frequency: holidays/special occasions only Alcohol type: wine Substance Use Type: does not use Exam Initial Vital Signs Initial Vital Signs: Vital Signs Temperature 98.4 F 11/15/20 16:05 Pulse Rate 62 11/15/20 16:05 Respiratory Rate 18 11/15/20 16:05 Blood Pressure 156/69 H 11/15/20 16:05 Pulse Oximetry 93 11/15/20 16:05 GENERAL: Thin cachectic and in [no acute] distress. HEENT: Head atraumatic,EOMI, pupils reactive, face symmetric, [moist] mucous membranes CARDIOVASCULAR: Regular rate and rhythm without murmurs, rubs or gallops. RESPIRATORY: Breath sounds equal bilaterally, no wheezes rales or rhonchi. ABDOMEN: Soft, thin nontender scar noted EXTREMITIES: Normal range of motion, no clubbing or edema. Neurovascularly intact NEUROLOGICAL: Alert and oriented x4.Normal gait and speech. Cranial nerves II through XII grossly intact. SKIN: Warm, dry, no laceration, no petechiae, no rashes or lesions. Course Orders Ordered: Discontinued Medications Sodium Chloride (Normal Saline 0.9%) 1,000 mls @ 1,000 mls/hr IV BOLUS ONE Stop: 11/15/20 17:39 Last Infusion: 11/15/20 19:06 Dose: 0 mls/hr Documented by: Infusion: 11/15/20 16:48 Dose: 250 mls/hr Documented by: Admin: 11/15/20 16:44 Dose: 1,000 mls/hr Documented by: FREDY Vital Signs Vital signs: Vital Signs - 8 hr 11/15/20 16:05 11/15/20 16:34 11/15/20 16:45 Temperature 98.4 F Pulse Rate 62 56 L 60 Respiratory Rate 18 21 22 Blood Pressure 156/69 H Pulse Oximetry 93 98 96 11/15/20 17:00 11/15/20 17:15 11/15/20 17:30 Temperature Pulse Rate 67 63 59 L Respiratory Rate 27 H 32 H 29 H Blood Pressure 155/79 H 157/72 H Pulse Oximetry 92 97 11/15/20 17:45 11/15/20 18:00 11/15/20 18:03 Temperature Pulse Rate 60 59 L 71 Respiratory Rate 31 H 31 H 28 H Blood Pressure 151/70 H Pulse Oximetry 11/15/20 18:15 11/15/20 18:30 11/15/20 18:40 Temperature Pulse Rate 117 H 66 68 Respiratory Rate 28 H 31 H 38 H Blood Pressure 159/113 H Pulse Oximetry 11/15/20 19:01 Temperature Pulse Rate Respiratory Rate Blood Pressure 119/75 Pulse Oximetry MDM - Weakness Lab Data Attestation: I reviewed the patient's lab results. Result diagrams: 11/15/20 16:48 11/15/20 16:48 Labs: Lab Results 11/15/20 11/15/20 11/15/20 Range/Units 16:48 16:48 16:48 WBC 6.9 (4.5-11.0) X10^3/uL RBC 3.09 L (4.0-5.2) X10^6/uL Hgb 10.8 L (12.0-16.0) g/dL Hct 32.3 L (36-46) % MCV 104.5 H (80-100) fL MCH 34.9 H (26-34) PG MCHC 33.4 (30-36) % RDW 13.1 (11.6-14.8) % Plt Count 278 (150-400) X10^3/uL Neut % (Auto) 59.4 (50-75) % Lymph % (Auto) 27.2 (25-40) % Shoshone % (Auto) 8.7 (3-14) % Eos % (Auto) 3.6 (2-4) % Baso % (Auto) 1.1 (0-2) % Neut # (Auto) 4100 (0221-1366) /uL Lymph # (Auto) 1900 (2971-5809) /uL Shoshone # (Auto) 600 (0-900) /uL Eos # (Auto) 200 (0-450) /uL Baso # (Auto) 100 (0-100) /uL Sodium 136 L (137-145) mmol/L Potassium 4.9 (3.4-5.1) mmol/L Chloride 112 H (98-107) mmol/L Carbon Dioxide 18 L (22-32) mmol/L BUN 27 H (7-17) mg/dL Creatinine 1.29 H (0.52-1.04) mg/dL Estimated GFR 40.2 L (>60) mL/min BUN/Creatinine Ratio 20.9 (6-22) Glucose 101 (80-110) mg/dL Lactate 1.1 (0.7-2.1) mmol/L Calcium 9.3 (8.4-10.2) mg/dL Total Bilirubin 0.3 (0.2-1.3) mg/dL AST 115 H (14-36) IU/L ALT 52 H (<35) IU/L Alkaline Phosphatase 107 (38-126) U/L Total Creatine Kinase 34 (30-135) U/L CK-MB (CK-2) TNP CK-MB (CK-2) Rel Index TNP Troponin I < 0.012 (0.01-0.034) ng/mL NT-Pro-B Natriuret Pep (<450) pg/mL Total Protein 6.9 (6.3-8.2) g/dL Albumin 3.5 (3.5-5.0) g/dL Globulin 3.4 (1.7-4.1) g/dL Albumin/Globulin Ratio 1.0 (1.0-2.8) Procalcitonin 0.20 (<0.5) ng/mL 11/15/20 Range/Units 16:48 WBC (4.5-11.0) X10^3/uL RBC (4.0-5.2) X10^6/uL Hgb (12.0-16.0) g/dL Hct (36-46) % MCV (80-100) fL MCH (26-34) PG MCHC (30-36) % RDW (11.6-14.8) % Plt Count (150-400) X10^3/uL Neut % (Auto) (50-75) % Lymph % (Auto) (25-40) % Shoshone % (Auto) (3-14) % Eos % (Auto) (2-4) % Baso % (Auto) (0-2) % Neut # (Auto) (6941-4275) /uL Lymph # (Auto) (5542-7107) /uL Shoshone # (Auto) (0-900) /uL Eos # (Auto) (0-450) /uL Baso # (Auto) (0-100) /uL Sodium (137-145) mmol/L Potassium (3.4-5.1) mmol/L Chloride (98-107) mmol/L Carbon Dioxide (22-32) mmol/L BUN (7-17) mg/dL Creatinine (0.52-1.04) mg/dL Estimated GFR (>60) mL/min BUN/Creatinine Ratio (6-22) Glucose (80-110) mg/dL Lactate (0.7-2.1) mmol/L Calcium (8.4-10.2) mg/dL Total Bilirubin (0.2-1.3) mg/dL AST (14-36) IU/L ALT (<35) IU/L Alkaline Phosphatase (38-126) U/L Total Creatine Kinase (30-135) U/L CK-MB (CK-2) CK-MB (CK-2) Rel Index Troponin I (0.01-0.034) ng/mL NT-Pro-B Natriuret Pep 874 H (<450) pg/mL Total Protein (6.3-8.2) g/dL Albumin (3.5-5.0) g/dL Globulin (1.7-4.1) g/dL Albumin/Globulin Ratio (1.0-2.8) Procalcitonin (<0.5) ng/mL ECG Data Attestation: I personally reviewed and interpreted this ECG as follows: Prior ECG tracings: available for review Interpretation: Normal sinus rhythm rate 61 p.r. interval 190 or QRS [address] changes MDM Narrative Medical decision making narrative: Patient is overall very thin she was lightheaded with no focal deficits. Blood work actually looks at her baseline. He has no abdominal pain she did not pass out or hit her head at this time I see no need for any change. 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 The person that she would like to be in contact with is air and water tester oncologist. However at this time she is overall feeling better she does not meet admission criteria. She is ambulatory in the ED without any difficulty and is ready and able to go home. She says that she will contact her oncologist tomorrow. I discussed all findings with the patient [and /spouse mother], Education has been performed regarding treatment plan, diagnosis, warning signs and symptoms and all concerns have been addressed. Verbally agree with and understood all of the above. Discharge Plan Departure Patient Disposition: Home Clinical Impression: Dehydration Instructions: Dehydration Activity Restrictions/Additional Instructions: *You have been diagnosed with dehydration *What to do: At this time your blood work is overall on changed. The lightheadedness may be due to dehydration. Please call your air and water tester tomorrow at [facility] in scheduled follow-up. *Continue to take medications as directed *Follow up with your primary care provider in 2-3 days *Return to ER if you should have increasing weakness, dizziness, falls, chest pain or any new, worsening or concerning symptoms Referrals: Anitra Jackson, [Primary Care Provider] -
[2020-11-15 17:05] LABS: Add Manual Diff / Slide Review NO; Basophils Absolute Auto 100 /uL (0-100); Basophils Percent Auto 1.1 % (0-2); Eosinophils Absolute Auto 200 /uL (0-450); Eosinophils Percent Auto 3.6 % (2-4); Hematocrit 32.3 % (36-46); Hemoglobin 10.8 g/dL (12.0-16.0); Lymphocytes Absolute Auto 1900 /uL (1100-4500); Lymphocytes Percent Auto 27.2 % (25-40); Mean Corpuscular HGB Conc 33.4 % (30-36); Mean Corpuscular Hemoglobin 34.9 PG (26-34); Mean Corpuscular Volume 104.5 fL (80-100); Monocytes Absolute Auto 600 /uL (0-900); Monocytes Percent Auto 8.7 % (3-14); Neutrophils Absolute Auto 4100 /uL (1500-7000); Neutrophils Percent Auto 59.4 % (50-75); Platelet Count 278 X10^3/uL (150-400); Red Blood Cell Count 3.09 X10^6/uL (4.0-5.2); Red Cell Distribution Width 13.1 % (11.6-14.8); White Blood Cell Count 6.9 X10^3/uL (4.5-11.0)
[2020-11-15 17:25] LABS: Lactate (Lactic Acid) 1.1 mmol/L (0.7-2.1)
[2020-11-15 17:26] LABS: Alanine Aminotransferase 52 IU/L (<35); Albumin 3.5 g/dL (3.5-5.0); Alkaline Phosphatase 107 U/L (38-126); Aspartate Aminotransferase 115 IU/L (14-36); BUN Creatinine Ratio 20.9 (6-22); Bilirubin Total 0.3 mg/dL (0.2-1.3); Blood Urea Nitrogen 27 mg/dL (7-17); Calcium 9.3 mg/dL (8.4-10.2); Carbon Dioxide 18 mmol/L (22-32); Chloride 112 mmol/L (98-107); Creatine Kinase 34 U/L (30-135); Estimated Glomerular Filt Rate 40.2 mL/min (>60); Globulin 3.4 g/dL (1.7-4.1); Glucose 101 mg/dL (80-110); HEMOLYSIS < 15 (0-50); Potassium 4.9 mmol/L (3.4-5.1); Sodium 136 mmol/L (137-145); Total Protein 6.9 g/dL (6.3-8.2)
[2020-11-15 17:34] LABS: NT-proBNP (BNP-Adult 18+) 874 pg/mL (<450)
[2020-11-15 17:37] LABS: Troponin I < 0.012 ng/mL (0.01-0.034)
== END 2020-11-15 19:12 | disposition home or self-care (01) ==
PROVIDERS: Emergency Provider Emergency Medicine; PCP Family Medicine
DX: E86.0 Dehydration (principal)
CPT/HCPCS: 36415; 71045; 80053; 82550; 83605; 83880; 84145; 84484; 85025; 87040; 93005; 93010; 96360; 96361; 99284

== ENCOUNTER 2022-03-20 17:50 | Emergency (ER) | payer MEDICARE, SELFPAY ==
[2022-03-20 18:19] VITALS: BP 110/65; PULSE 75; RESP 14; TEMP 36.6; O2SAT 96; BMI 13.1
--- NOTE | 2022-03-20 18:24 | DI.RAD.S_ITS ---
PROCEDURE: XR HIP W PEL IF DONE LT 2V INDICATIONS: fall TECHNIQUE: AP pelvis with lateral view(s) of the left hip(s). COMPARISON: [facility], CR, XR HIP W PEL IF DONE RT 2V, 02/25/2020, 12:23. FINDINGS: Bones: No fractures or dislocations. Pelvic ring appears intact. Degenerative changes at both sacroiliac joints. No suspicious bony lesions. Soft tissues: The visualized bowel gas pattern is normal. No suspicious soft tissue calcifications. Surgical clips over the right pelvis. IMPRESSION: No visible hip or pelvic fracture. Dictated by: Jess Bosch M.D. on 03/20/2022 at 20:01 Approved by: Jess Bosch M.D. on 03/20/2022 at 20:02
--- NOTE | 2022-03-20 18:24 | DI.RAD.S_ITS ---
PROCEDURE: XR LUMBAR SPINE 2-3V INDICATIONS: fall TECHNIQUE: 3 views of the lumbar spine were acquired. COMPARISON: None. FINDINGS: Bones: Five hhy-woa-aasrajo vertebrae are present. Moderate levo scoliosis of the thoracolumbar spine with the apex at L2. There is a moderate superior endplate compression fracture of T12 and vertebral body irregularity of L1 which may be in part projectional. L2 through L5 appear intact with normal disc spacing. No suspicious bony lesions. Soft tissues: Overlying bowel gas pattern is normal. No suspicious soft tissue calcifications. There are surgical clips and suture lines throughout the abdomen. Atherosclerotic calcification. IMPRESSION: 1. T12 compression fracture of uncertain chronicity. 2. Possible L1 compression fracture versus asymmetric degeneration. Correlate clinically and consider advanced imaging such as CT or MRI. Dictated by: Jess Bosch M.D. on 03/20/2022 at 19:58 Approved by: Jess Bosch M.D. on 03/20/2022 at 20:00
--- NOTE | 2022-03-20 22:05 | ED.BACK ---
HPI - Back Pain/Injury General Chief Complaint: Back Pain/Injury Stated Complaint: back, pelvis pain s/p fall Time Seen by Provider: 03/20/22 21:37 Source: patient History of Present Illness HPI Narrative: Patient here for lower back pain and left hip pain. She states she fell 2 weeks ago again 2 weeks ago while taking out the garbage, she tripped on the garbage container. Denies any other injuries. The fall caused her to twist and then fall down. No loss of consciousness. Did not hit her head. She has been using [id number] lower back brace from [email or web address]. Denies denies any bowel or bladder incontinence or retention. No saddle paresthesia. No numbness tingling or weakness to the legs or feet. Has been using Tylenol without any relief. Can not take NSAIDs Related Data Previous Rx's Medication Instructions Recorded oxycodone-acetaminophen 5 mg-325 1 tab PO Q8H PRN pain #10 tabs 03/20/22 mg tablet (Percocet) Allergies Allergy/AdvReac Type Severity Reaction Status Date / Time aspirin [ASPIRIN] Allergy Unknown kidney Verified 11/15/20 16:36 probs ibuprofen [IBUPROFEN] Allergy Unknown Verified 11/15/20 16:36 Iodine and Iodide Containing Allergy Unknown pt only Verified 11/15/20 16:36 Produc has one [IODINE AND IODIDE kidney CONTAINING PRODUC] Review of Systems Review of Systems Narrative: GENERAL: Denies chills, fatigue, malaise, fever, sweats. HEENT: Denies sinus pain, ear pain, sore throat RESPIRATORY: Denies dyspnea, cough CARDIOVASCULAR: Denies chest pain, palpitations GASTROINTESTINAL: Denies nausea, vomiting, abdominal pain : Denies dysuria, frequency, hematuria MUSCULOSKELETAL: Positive for muscle or bony pain SKIN: Denies rash, skin lesions NEUROLOGIC: Denies weakness, numbness ROS Unobtainable: All systems reviewed & are unremarkable except as noted in HPI and below Patient History Medical History Adrenal insufficiency Surgical History Status post breast reduction Status post hysterectomy Social History Smoking Status: Never smoker Smoking Status: Never smoker tobacco type: cigarettes alcohol intake frequency: holidays/special occasions only Alcohol type: wine Substance Use Type: does not use Exam Narrative Exam Narrative: GENERAL: in no distress, not toxic not dyspneic HEAD: Normocephalic. EYES: Pupils equal round No scleral icterus. ENT: Mucous membranes moist. NECK: Trachea midline. No midline tenderness or step-off of the cervical spine. There is midline tenderness of the lower thoracic spine and upper lumbar spine. Skin is intact. No step-off. No bruising seen. EXTREMITIES: No gross deformities. No shortening or rotation of the lower extremities. Patient able to fully actively flex and extend at the hips and knees bilaterally, specifically the left lower extremity. Nontender to the left hip. Patient able to stand and bear weight. BACK: No flank tenderness. NEURO: AOx4. SKIN: Warm and dry PSYCH: Not anxious, is cooperative Initial Vital Signs Initial Vital Signs: Vital Signs Temperature 97.9 F 03/20/22 18:19 Pulse Rate 75 03/20/22 18:19 Respiratory Rate 14 03/20/22 18:19 Blood Pressure 110/65 03/20/22 18:19 Pulse Oximetry 96 03/20/22 18:19 Oxygen Delivery Method 03/20/22 18:19 Course Course Course Narrative: No new issues during course of stay Orders Ordered: ED Orders 03/20/22 18:24 XR hip w pel if done LT 2V Stat XR lumbar spine 2-3V Stat Discontinued Medications Oxycodone/Acetaminophen (Oxycodone/Apap 5/325 Prepack) 1 bottle MISC SEEINSTR ONE Stop: 03/20/22 22:10 Last Admin: 03/20/22 22:17 Dose: 1 bottle Documented By: CATRINA Reevaluation(s) Reevaluation #1: Reviewed results with patient and my discussion with Dr. Delaney. She understands and agrees with treatment plan. She does desire pain medication as she is not been able sleep at night very well. She denies any drug addiction. Time: 22:15 Consultations Consultation #1: Spoke with ortho spine, Dr. Delaney, appropriate for discharge home and follow up in the office. No admission indicated. No brace indicated at this time. Time: 21:51 Vital Signs Vital signs: Vital Signs - 8 hr 03/20/22 18:19 03/20/22 22:23 Temperature 97.9 F Pulse Rate 75 72 Respiratory Rate 14 18 Blood Pressure 110/65 148/70 H Pulse Oximetry 96 98 Oxygen Delivery Method Room Air Room Air MDM - Back Pain/Injury Imaging Data Extremity x-ray #1: Radiologist's Impression: [address] [address] XRay Report Signed Patient: Cathy Santiago MR#: [id number] : 1945 Acct:[id number] Age/Sex: 77 / F Date of Service: 03/20/22 Loc: ED Accession Number: [id number] ?? Procedure: XR lumbar spine 2-3V Ordering Provider: Edgar Velasquez MD PROCEDURE:? XR LUMBAR SPINE 2-3V ? INDICATIONS:? fall ? TECHNIQUE:? 3 views of the lumbar spine were acquired.? ? COMPARISON:? None. ? FINDINGS:? ? Bones:? Five sxy-cbb-szcqazc vertebrae are present.? Moderate levo scoliosis of the thoracolumbar spine with the apex at L2.? There is a moderate superior endplate compression fracture of T12 and vertebral body irregularity of L1 which may be in part projectional.? L2 through L5 appear intact with normal disc spacing.? No suspicious bony lesions.? ? Soft tissues:? Overlying bowel gas pattern is normal.? No suspicious soft tissue calcifications.? There are surgical clips and suture lines throughout the abdomen.? Atherosclerotic calcification. ? ? IMPRESSION:? ? 1. T12 compression fracture of uncertain chronicity. ? 2. Possible L1 compression fracture versus asymmetric degeneration.? Correlate clinically and consider advanced imaging such as CT or MRI.? ? ? Dictated by: Jess Bosch M.D. on 03/20/2022 at 19:58 ? ? Approved by: Jess Bosch M.D. on 03/20/2022 at 20:00 ? Extremity x-ray #2: Radiologist's Impression: [address] [address] XRay Report Signed Patient: Cathy Santiago MR#: [id number] : 1945 Acct:[id number] Age/Sex: 77 / F Date of Service: 03/20/22 Loc: ED Accession Number: [id number] ?? Procedure: XR hip w pel if done LT 2V Ordering Provider: Edgar Velasquez MD PROCEDURE:? XR HIP W PEL IF DONE LT 2V ? INDICATIONS:? fall ? TECHNIQUE:? AP pelvis with lateral view(s) of the left hip(s).? ? COMPARISON:? [facility], CR, XR HIP W PEL IF DONE RT 2V, 02/25/2020, 12:23. ? FINDINGS:? ? Bones:? No fractures or dislocations.? Pelvic ring appears intact.? Degenerative changes at both sacroiliac joints.? No suspicious bony lesions.? ? Soft tissues:? The visualized bowel gas pattern is normal.? No suspicious soft tissue calcifications.? Surgical clips over the right pelvis. ? ? IMPRESSION:? No visible hip or pelvic fracture. ? Dictated by: Jess Bosch M.D. on 03/20/2022 at 20:01 ? ? Approved by: Jess Bosch M.D. on 03/20/2022 at 20:02 ? MDM Narrative Medical decision making narrative: Appropriate for discharge home. Exam and imaging are reassuring. Patient able to bear weight and stand. Two weeks since injury and x-rays are reassuring. Neurovascularly intact. I did review with ortho spine Dr. Delaney and appropriate for follow-up. Patient can not take NSAIDs. Has had oxycodone in the past without any difficulty or addiction. Return precautions reviewed with her. Discharge Plan Departure Patient Disposition: Home Clinical Impression: Compression fracture of thoracic vertebra, Closed compression fracture of L1 vertebra Instructions: DI for Vertebral Fracture Activity Restrictions/Additional Instructions: Call provided ortho spine provider in the morning for office recheck within a week. No driving operating machine with provided pain medication. Return if worse or if any questions or concerns. Return if any numbness tingling weakness to the legs or feet or any problems with urination or bowel movements. Return if any numbness to the groin area. Prescriptions: New oxycodone-acetaminophen [Percocet] 5-325 mg tablet 1 tab PO Q8H PRN (Reason: pain) Qty: 10 0RF Referrals: Taj Rao MD [Physician] - Anitra Jackson DO [Primary Care Provider] - Visit Report Forms: Patient Portal/API
[2022-03-20] MEDS: OXYCODONE/APAP 5/325 PREPACK 1 BOTTLE MISC (22:17)
[2022-03-20 22:23] VITALS: BP 148/70; PULSE 72; RESP 18; O2SAT 98
== END 2022-03-20 22:24 | disposition home or self-care (01) ==
PROVIDERS: Emergency Provider Emergency Medicine; PCP Family Medicine
DX: S22.089A Unspecified fracture of T11-T12 vertebra, initial encounter for closed fracture (principal); S32.019A Unspecified fracture of first lumbar vertebra, initial encounter for closed fracture; M25.552 Pain in left hip; W19.XXXA Unspecified fall, initial encounter
CPT/HCPCS: 72100; 73502; 99281; 99283

== ENCOUNTER 2022-03-28 11:33 | Inpatient (IN) | payer OTHER, SELFPAY ==
[2022-03-28] VITALS (19 sets, daily range): BP systolic 136–170; BP diastolic 68–90; PULSE 72–98; RESP 12–19; TEMP 36.4–36.9; O2SAT 92–98; BMI 13.1; BMI 13.5
[2022-03-28 12:03] LABS: Add Manual Diff / Slide Review NO; Basophils Absolute Auto 100 /uL (0-100); Basophils Percent Auto 0.7 % (0-2); Eosinophils Absolute Auto 1600 /uL (0-450); Eosinophils Percent Auto 19.3 % (2-4); Hematocrit 36.9 % (36-46); Hemoglobin 12.3 g/dL (12.0-16.0); Lymphocytes Absolute Auto 1500 /uL (1100-4500); Lymphocytes Percent Auto 18.1 % (25-40); Mean Corpuscular HGB Conc 33.2 % (30-36); Mean Corpuscular Hemoglobin 34.1 PG (26-34); Mean Corpuscular Volume 102.5 fL (80-100); Monocytes Absolute Auto 800 /uL (0-900); Monocytes Percent Auto 9.1 % (3-14); Neutrophils Absolute Auto 4400 /uL (1500-7000); Neutrophils Percent Auto 52.8 % (50-75); Platelet Count 409 X10^3/uL (150-400); Red Cell Distribution Width 12.9 % (11.6-14.8); White Blood Cell Count 8.4 X10^3/uL (4.5-11.0)
[2022-03-28 12:09] LABS: INR 1.2 (0.9-1.3); Prothrombin Time 13.5 SECONDS (10.1-12.7)
[2022-03-28 12:11] LABS: PTT Partial Thromboplastin Tim 31 SECONDS (26-36)
[2022-03-28 12:17] LABS: Alanine Aminotransferase 25 IU/L (<35); Albumin 4.1 g/dL (3.5-5.0); Alkaline Phosphatase 172 U/L (38-126); Aspartate Aminotransferase 38 IU/L (14-36); BUN Creatinine Ratio 23.8 (6-22); Bilirubin Total 0.5 mg/dL (0.2-1.3); Blood Urea Nitrogen 29 mg/dL (7-17); Calcium 9.1 mg/dL (8.4-10.2); Carbon Dioxide 20 mmol/L (22-32); Chloride 110 mmol/L (98-107); Creatine Kinase 71 U/L (30-135); Estimated Glomerular Filt Rate 45 mL/min (>60); Ethanol (ETOH) < 10 mg/dL; Globulin 4.3 g/dL (1.7-4.1); Glucose 110 mg/dL (80-110); HEMOLYSIS < 15 (0-50); Lactate (Lactic Acid) 1.2 mmol/L (0.7-2.1); Potassium 4.4 mmol/L (3.4-5.1); Sodium 141 mmol/L (137-145); Total Protein 8.4 g/dL (6.3-8.2)
[2022-03-28 12:26] LABS: Acetaminophen < 10 ug/mL (10-30); Salicylate < 1.0 mg/dL (<20)
[2022-03-28 12:29] LABS: Troponin I < 0.012 ng/mL (0.01-0.034)
[2022-03-28 12:33] LABS: Procalcitonin 0.16 ng/mL (<0.5)
[2022-03-28] MEDS: SODIUM CHLORIDE 0.9% 1,000 ML 150 ML IV (12:41)
[2022-03-28 12:51] LABS: Ammonia (NH3) < 9 umol/L (9-30)
[2022-03-28 12:53] LABS: Thyroid Stimulating Hormone 2.48 uIU/mL (0.47-4.68)
--- NOTE | 2022-03-28 12:58 | ED.AMS ---
HPI - Altered Mental Status General Chief Complaint: Altered Mental Status Stated Complaint: Hallucinations Time Seen by Provider: 03/28/22 11:39 Source: EMS Mode of arrival: EMS History of Present Illness HPI narrative: Patient is a 77-year-old female with remote history of pancreatic cancer and with full 18 years ago presents today with hallucinations and altered mental status. She has been falling at home more regularly. She was seen evaluated here on 03/20/2022 after she fell. She was found to have a T12 compression fracture along with a possible L1 compression fracture. She followed up with Orthopedics and she was given a brace. She was previously given oxycodone from the emergency department to help with pain however it was not helping so 2 days ago her medication was switched to tramadol. Since then she has had hallucinations. She says that she is having all of her friends around her help her and make phone calls however her friend at bedside says that is not happening. Friend at bedside this is they are all very concerned for her. Since she broke her back she has been unable to get up and cook. She is not eating. Related Data Previous Rx's Medication Instructions Recorded oxycodone-acetaminophen 5 mg-325 1 tab PO Q8H PRN pain #10 tabs 03/20/22 mg tablet (Percocet) Allergies Allergy/AdvReac Type Severity Reaction Status Date / Time aspirin [ASPIRIN] Allergy Unknown kidney Verified 11/15/20 16:36 probs ibuprofen [IBUPROFEN] Allergy Unknown Verified 11/15/20 16:36 Iodine and Iodide Containing Allergy Unknown pt only Verified 11/15/20 16:36 Produc has one [IODINE AND IODIDE kidney CONTAINING PRODUC] Review of Systems Review of Systems Narrative: GENERAL: Denies chills, fatigue, malaise, fever, sweats, travel HEENT: Denies sinus pain, ear pain, sore throat, difficulty swallowing, neck pain RESPIRATORY: Denies dyspnea, cough, wheezing, hemoptysis, sputum. CARDIOVASCULAR: Denies chest pain, palpitations, orthopnea, edema GASTROINTESTINAL: Denies nausea, vomiting, abdominal pain, diarrhea, constipation, melena. : Denies dysuria, frequency, incontinence, hematuria, urinary retention, flank pain. MUSCULOSKELETAL: See HPI SKIN: No rash, no erythema, no pruritus NEUROLOGIC: Denies weakness, dizziness, headache, numbness, change in speech, confusion PSYCHIATRIC: See HPI 12 point review of systems is negative except for those stated above and HPI Patient History Medical History (Updated 03/28/22 @ 16:31 by Bhavana Joe DO) Adrenal insufficiency Surgical History Status post breast reduction Status post hysterectomy Social History household members: none Smoking Status: Never smoker Smoking Status: Never smoker tobacco type: cigarettes alcohol intake frequency: holidays/special occasions only Alcohol type: wine Substance Use Type: does not use Exam Initial Vital Signs Initial Vital Signs: Vital Signs Temperature 98.4 F 03/28/22 11:36 Pulse Rate 98 H 03/28/22 11:36 Respiratory Rate 12 03/28/22 11:36 Blood Pressure 166/76 H 03/28/22 11:36 Pulse Oximetry 98 03/28/22 11:36 Oxygen Delivery Method 03/28/22 11:36 GENERAL: Very thin chronically ill 77-year-old he HEENT: Head atraumatic,EOMI, pupils reactive, face symmetric, moist mucous membranes CARDIOVASCULAR: Regular rate and rhythm without murmurs, rubs or gallops. RESPIRATORY: Breath sounds equal bilaterally, no wheezes rales or rhonchi. ABDOMEN: Soft, nontender. Normoactive bowel sounds all 4 quadrants. No guarding or rebound. BACK: Brace on EXTREMITIES: Normal range of motion, no clubbing or edema. Neurovascularly intact NEUROLOGICAL: Alert and oriented x3. Moving all extremities SKIN: Warm, dry, no laceration, no petechiae, no rashes or lesions. Scores GCS Foley coma scale eye opening: Spontaneous Foley coma scale verbal response: Confused Foley coma scale motor response: Obey commands Foley coma scale total score: 14 Course Orders Ordered: ED Orders 03/28/22 11:43 Consult to OUTPATIENT CODER - [facility] [employer] Stat Acetaminophen Stat Complete Blood Count AUTO DIFF Stat Comprehensive Metabolic Panel Stat Ethanol (ETOH) Stat Lactate (Lactic Acid) Stat Partial Thromboplastin Time Stat Procalcitonin Stat Prothrombin Time INR Stat Salicylate Stat Thyroid Stimulating Hormone Stat Troponin & CK Cardiac Panel Stat 03/28/22 11:45 Osmolality, Serum Stat 03/28/22 12:12 Ammonia (NH3) Stat 03/28/22 12:59 CT abdomen pelvis w con Stat 03/28/22 13:00 Consult to Physical Therapy Evaluate & Treat 03/28/22 13:01 EKG-12 Lead Stat 03/28/22 13:04 CT head/brain wo con Stat 03/28/22 13:26 Blood Culture Stat 03/28/22 13:35 Urinalysis and Microscopic Stat Urine Culture Stat Urine Drug Screen, Rapid Stat Sodium Chloride (Normal Saline 0.9%) 1,000 mls @ 150 mls/hr IV CONT KATHLEEN Last Infusion: 03/28/22 15:19 Dose: 150 mls/hr Documented By: Infusion: 03/28/22 14:55 Dose: 0 mls/hr Documented By: Admin: 03/28/22 12:41 Dose: 150 mls/hr Documented By: RB Discontinued Medications Diphenhydramine HCl (Diphenhydramine 50 Mg/Ml Vial) 25 mg IV NOW ONE Stop: 03/28/22 13:08 Last Admin: 03/28/22 13:40 Dose: Not Given Documented By: AT Ceftriaxone Sodium 1,000 mg/ (Sodium Chloride) 100 mls @ 200 mls/hr IV NOW ONE Stop: 03/28/22 16:10 Last Infusion: 03/28/22 16:51 Dose: 0 mls/hr Documented By: Admin: 03/28/22 16:14 Dose: 200 mls/hr Documented By: SB Methylprednisolone (Methylprednisolone 125 Mg/2 Ml Vial) 125 mg IV NOW ONE Stop: 03/28/22 13:08 Last Admin: 03/28/22 13:40 Dose: Not Given Documented By: AT Vital Signs Vital signs: Vital Signs - 8 hr 03/28/22 11:36 03/28/22 11:39 03/28/22 12:00 Temperature 98.4 F Pulse Rate 98 H 72 Respiratory Rate 12 Blood Pressure 166/76 H 163/82 H Pulse Oximetry 98 98 Oxygen Delivery Method Room Air 03/28/22 12:00 03/28/22 12:30 03/28/22 12:30 Temperature Pulse Rate 73 77 Respiratory Rate Blood Pressure 155/77 H Pulse Oximetry 98 95 Oxygen Delivery Method Room Air 03/28/22 13:00 03/28/22 13:00 03/28/22 13:35 Temperature Pulse Rate 78 Respiratory Rate Blood Pressure 164/86 H 140/68 Pulse Oximetry 96 Oxygen Delivery Method 03/28/22 13:35 03/28/22 14:11 03/28/22 14:30 Temperature Pulse Rate 77 82 76 Respiratory Rate Blood Pressure Pulse Oximetry 95 92 Oxygen Delivery Method 03/28/22 14:43 03/28/22 14:43 03/28/22 15:22 Temperature Pulse Rate 79 80 Respiratory Rate Blood Pressure 147/83 H Pulse Oximetry 97 Oxygen Delivery Method 03/28/22 15:23 03/28/22 15:23 03/28/22 15:30 Temperature Pulse Rate 80 79 Respiratory Rate Blood Pressure 158/75 H Pulse Oximetry 97 95 Oxygen Delivery Method 03/28/22 15:31 03/28/22 15:31 03/28/22 16:00 Temperature Pulse Rate 77 Respiratory Rate Blood Pressure 170/90 H 154/76 H Pulse Oximetry 97 Oxygen Delivery Method 03/28/22 16:00 Temperature Pulse Rate 81 Respiratory Rate Blood Pressure Pulse Oximetry 97 Oxygen Delivery Method MDM - Altered Mental Status Lab Data Result diagrams: 03/28/22 11:43 03/28/22 11:43 Labs: Lab Results 03/28/22 03/28/22 03/28/22 Range/Units 11:43 11:43 11:43 WBC 8.4 (4.5-11.0) X10^3/uL RBC 3.60 L (4.0-5.2) X10^6/uL Hgb 12.3 (12.0-16.0) g/dL Hct 36.9 (36-46) % MCV 102.5 H (80-100) fL MCH 34.1 H (26-34) PG MCHC 33.2 (30-36) % RDW 12.9 (11.6-14.8) % Plt Count 409 H (150-400) X10^3/uL Neut % (Auto) 52.8 (50-75) % Lymph % (Auto) 18.1 L (25-40) % Nelson % (Auto) 9.1 (3-14) % Eos % (Auto) 19.3 H (2-4) % Baso % (Auto) 0.7 (0-2) % Neut # (Auto) 4400 (6056-5534) /uL Lymph # (Auto) 1500 (1291-4821) /uL Nelson # (Auto) 800 (0-900) /uL Eos # (Auto) 1600 H (0-450) /uL Baso # (Auto) 100 (0-100) /uL PT 13.5 H (10.1-12.7) SECONDS INR 1.2 (0.9-1.3) APTT 31 (26-36) SECONDS Sodium 141 (137-145) mmol/L Potassium 4.4 (3.4-5.1) mmol/L Chloride 110 H (98-107) mmol/L Carbon Dioxide 20 L (22-32) mmol/L BUN 29 H (7-17) mg/dL Creatinine 1.22 H (0.52-1.04) mg/dL Estimated GFR 45 L (>60) mL/min BUN/Creatinine Ratio 23.8 H (6-22) Glucose 110 (80-110) mg/dL Lactate (0.7-2.1) mmol/L Calcium 9.1 (8.4-10.2) mg/dL Total Bilirubin 0.5 (0.2-1.3) mg/dL AST 38 H (14-36) IU/L ALT 25 (<35) IU/L Alkaline Phosphatase 172 H (38-126) U/L Ammonia (9-30) umol/L Total Creatine Kinase 71 (30-135) U/L CK-MB (CK-2) TNP CK-MB (CK-2) Rel Index TNP Troponin I < 0.012 (0.01-0.034) ng/mL Total Protein 8.4 H (6.3-8.2) g/dL Albumin 4.1 (3.5-5.0) g/dL Globulin 4.3 H (1.7-4.1) g/dL Albumin/Globulin Ratio 1.0 (1.0-2.8) Procalcitonin 0.16 (<0.5) ng/mL TSH (0.47-4.68) uIU/mL Urine Color Urine Appearance Urine pH (4.5-8.0) Ur Specific [place] (1.000-1.035) Urine Protein (Negative) Urine Glucose (UA) (Negative) g/dL Urine Ketones (NEGATIVE) Urine Occult Blood (Negative) Urine Nitrate (Negative) Urine Bilirubin (NEGATIVE) Urine Urobilinogen (0.2) E.U./dL Ur Leukocyte Esterase (NEGATIVE) Urine RBC (0-5/HPF) Urine WBC (0-5/HPF) Urine Bacteria (None) Ur Culture Indicated? Salicylates < 1.0 (<20) mg/dL U Opiates 300ng/mL cut (Negative) Ur Oxycodone Screen (Negative) Urine Methadone Screen (Negative) Acetaminophen < 10 (10-30) ug/mL Ur Barbiturates Screen (Negative) U Tricyclic Antidepress (Negative) Ur Phencyclidine Scrn (Negative) Ur Amphetamines Screen (Negative) U Methamphetamines Scrn (Negative) Ur MDMA Scrn (Ecstasy) (Negative) U Benzodiazepines Scrn (Negative) Urine Cocaine Screen (Negative) U Marijuana (THC) Screen Ethyl Alcohol < 10 ( - 10) mg/dL 03/28/22 03/28/22 03/28/22 Range/Units 11:43 11:43 12:12 WBC (4.5-11.0) X10^3/uL RBC (4.0-5.2) X10^6/uL Hgb (12.0-16.0) g/dL Hct (36-46) % MCV (80-100) fL MCH (26-34) PG MCHC (30-36) % RDW (11.6-14.8) % Plt Count (150-400) X10^3/uL Neut % (Auto) (50-75) % Lymph % (Auto) (25-40) % Nelson % (Auto) (3-14) % Eos % (Auto) (2-4) % Baso % (Auto) (0-2) % Neut # (Auto) (9469-0594) /uL Lymph # (Auto) (5694-1709) /uL Nelson # (Auto) (0-900) /uL Eos # (Auto) (0-450) /uL Baso # (Auto) (0-100) /uL PT (10.1-12.7) SECONDS INR (0.9-1.3) APTT (26-36) SECONDS Sodium (137-145) mmol/L Potassium (3.4-5.1) mmol/L Chloride (98-107) mmol/L Carbon Dioxide (22-32) mmol/L BUN (7-17) mg/dL Creatinine (0.52-1.04) mg/dL Estimated GFR (>60) mL/min BUN/Creatinine Ratio (6-22) Glucose (80-110) mg/dL Lactate 1.2 (0.7-2.1) mmol/L Calcium (8.4-10.2) mg/dL Total Bilirubin (0.2-1.3) mg/dL AST (14-36) IU/L ALT (<35) IU/L Alkaline Phosphatase (38-126) U/L Ammonia < 9 L (9-30) umol/L Total Creatine Kinase (30-135) U/L CK-MB (CK-2) CK-MB (CK-2) Rel Index Troponin I (0.01-0.034) ng/mL Total Protein (6.3-8.2) g/dL Albumin (3.5-5.0) g/dL Globulin (1.7-4.1) g/dL Albumin/Globulin Ratio (1.0-2.8) Procalcitonin (<0.5) ng/mL TSH 2.48 (0.47-4.68) uIU/mL Urine Color Urine Appearance Urine pH (4.5-8.0) Ur Specific [place] (1.000-1.035) Urine Protein (Negative) Urine Glucose (UA) (Negative) g/dL Urine Ketones (NEGATIVE) Urine Occult Blood (Negative) Urine Nitrate (Negative) Urine Bilirubin (NEGATIVE) Urine Urobilinogen (0.2) E.U./dL Ur Leukocyte Esterase (NEGATIVE) Urine RBC (0-5/HPF) Urine WBC (0-5/HPF) Urine Bacteria (None) Ur Culture Indicated? Salicylates (<20) mg/dL U Opiates 300ng/mL cut (Negative) Ur Oxycodone Screen (Negative) Urine Methadone Screen (Negative) Acetaminophen (10-30) ug/mL Ur Barbiturates Screen (Negative) U Tricyclic Antidepress (Negative) Ur Phencyclidine Scrn (Negative) Ur Amphetamines Screen (Negative) U Methamphetamines Scrn (Negative) Ur MDMA Scrn (Ecstasy) (Negative) U Benzodiazepines Scrn (Negative) Urine Cocaine Screen (Negative) U Marijuana (THC) Screen Ethyl Alcohol ( - 10) mg/dL 03/28/22 03/28/22 Range/Units 13:35 13:35 WBC (4.5-11.0) X10^3/uL RBC (4.0-5.2) X10^6/uL Hgb (12.0-16.0) g/dL Hct (36-46) % MCV (80-100) fL MCH (26-34) PG MCHC (30-36) % RDW (11.6-14.8) % Plt Count (150-400) X10^3/uL Neut % (Auto) (50-75) % Lymph % (Auto) (25-40) % Nelson % (Auto) (3-14) % Eos % (Auto) (2-4) % Baso % (Auto) (0-2) % Neut # (Auto) (1553-5700) /uL Lymph # (Auto) (3978-4227) /uL Nelson # (Auto) (0-900) /uL Eos # (Auto) (0-450) /uL Baso # (Auto) (0-100) /uL PT (10.1-12.7) SECONDS INR (0.9-1.3) APTT (26-36) SECONDS Sodium (137-145) mmol/L Potassium (3.4-5.1) mmol/L Chloride (98-107) mmol/L Carbon Dioxide (22-32) mmol/L BUN (7-17) mg/dL Creatinine (0.52-1.04) mg/dL Estimated GFR (>60) mL/min BUN/Creatinine Ratio (6-22) Glucose (80-110) mg/dL Lactate (0.7-2.1) mmol/L Calcium (8.4-10.2) mg/dL Total Bilirubin (0.2-1.3) mg/dL AST (14-36) IU/L ALT (<35) IU/L Alkaline Phosphatase (38-126) U/L Ammonia (9-30) umol/L Total Creatine Kinase (30-135) U/L CK-MB (CK-2) CK-MB (CK-2) Rel Index Troponin I (0.01-0.034) ng/mL Total Protein (6.3-8.2) g/dL Albumin (3.5-5.0) g/dL Globulin (1.7-4.1) g/dL Albumin/Globulin Ratio (1.0-2.8) Procalcitonin (<0.5) ng/mL TSH (0.47-4.68) uIU/mL Urine Color Yellow Urine Appearance Cloudy Urine pH 5.0 (4.5-8.0) Ur Specific [place] 1.025 (1.000-1.035) Urine Protein 1+ H (Negative) Urine Glucose (UA) Negative (Negative) g/dL Urine Ketones Negative (NEGATIVE) Urine Occult Blood 1+ H (Negative) Urine Nitrate Negative (Negative) Urine Bilirubin Negative (NEGATIVE) Urine Urobilinogen 0.2 (0.2) E.U./dL Ur Leukocyte Esterase 2+ H (NEGATIVE) Urine RBC 1-5/hpf (0-5/HPF) Urine WBC >100/hpf H (0-5/HPF) Urine Bacteria Many (>30) H (None) Ur Culture Indicated? Specimen cultured Salicylates (<20) mg/dL U Opiates 300ng/mL cut Negative (Negative) Ur Oxycodone Screen Positive H (Negative) Urine Methadone Screen Negative (Negative) Acetaminophen (10-30) ug/mL Ur Barbiturates Screen Negative (Negative) U Tricyclic Antidepress Negative (Negative) Ur Phencyclidine Scrn Negative (Negative) Ur Amphetamines Screen Negative (Negative) U Methamphetamines Scrn Negative (Negative) Ur MDMA Scrn (Ecstasy) Negative (Negative) U Benzodiazepines Scrn Negative (Negative) Urine Cocaine Screen Negative (Negative) U Marijuana (THC) Screen TNP Ethyl Alcohol ( - 10) mg/dL Imaging Data CT scan - abdomen/pelvis: Radiologist's Impression: [address] [place] [id number] Scan Report Signed Patient: Cathy Santiago MR#: [id number] : 1945 Acct:[id number] Age/Sex: 77 / F Date of Service: 03/28/22 Loc: ED Accession Number: [id number] ?? Procedure: CT abdomen pelvis w con Ordering Provider: Bhavana Joe D.O. PROCEDURE:? CT ABDOMEN PELVIS W CON ? INDICATIONS:? LLQ pain remotte hx pancreatic cancer ? TECHNIQUE:? After the administration of intravenous contrast, axial sections acquired from the lung bases to the pubic symphysis.? Coronal and sagittal reformats were performed.? For radiation dose reduction, the following was used:? automated exposure control, adjustment of mA and/or kV according to patient size.? ? COMPARISON:? None. ? FINDINGS:? Image quality:? Excellent.? ? Lung bases:? Unremarkable. Heart:? No significant findings. ? ABDOMEN: Liver:? Unremarkable.? ? Gallbladder:? Surgically absent.? ? Biliary ducts:? Unremarkable.? ? Pancreas:? Remote Whipple procedure no pancreatic bed mass noted.? Spleen:? Unremarkable.? ? Adrenal Glands:? Unremarkable.? ? Kidneys and Ureters:? Right kidney is surgically absent.? The anterior upper pole of the left kidney is atrophied consistent with remote insult. ? Stomach and Bowel:? Remote gastric bypass.? Bowel unremarkable.? Moderately large fecal load. Peritoneum:? No abnormal intraperitoneal fluid.? No free air.? ? Ventral Wall: ? No hernias.? Abdominal Nodes:? No retroperitoneal or mesenteric adenopathy by size criteria.? Vessels:? Aorta and inferior vena cava are normal in size.? ? PELVIS: Pelvic Organs:? Uterus is surgically absent. Bladder:? Unremarkable.? ? Pelvic Nodes: No enlarged lymph nodes.? Miscellaneous: No hernias are seen. ? ? ? Bones:? Age indeterminate superior endplate compression of T12 and inferior endplate compression of L1. ? ? IMPRESSION:? ? 1. Remote Whipple procedure, remote cholecystectomy, remote right nephrectomy, remote hysterectomy.? ? 2. No evidence of acute abdominal process. ? 3. Age indeterminate fractures of T12 and L1. ? 4. 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 ? 4. Moderately large fecal load.? ? Dictated by: Benny Mcgowan M.D. on 03/28/2022 at 14:35 ? ? Approved by: Benny Mcgowan M.D. on 03/28/2022 at 14:42 ? CT scan - head: Radiologist's Impression: [facility] [id number] CT Scan Report Signed Patient: Cathy Santiago MR#: [id number] : 1945 Acct:[id number] Age/Sex: 77 / F Date of Service: 03/28/22 Loc: ED Accession Number: [id number] ?? Procedure: CT head/brain wo con Ordering Provider: Botnick,Bhavana D.O. PROCEDURE:? CT HEAD/BRAIN WO CON ? INDICATIONS:? frequent falls ? TECHNIQUE:? Noncontrast 4.5 mm thick angled axial sections acquired from the foramen magnum to the vertex, with coronal and sagittal reformats.? For radiation dose reduction, the following was used:? automated exposure control, adjustment of mA and/or kV according to patient size.? ? COMPARISON:? [facility], CT, CT HEAD/BRAIN WO CON, 02/25/2020, 13:10. ? FINDINGS:? Image quality:? Excellent.? ? CSF spaces:? Basal cisterns are patent.? No extra-axial fluid collections.? The ventricles are symmetric in size and shape.? ? Brain:? No intracranial bleeds or masses.? There is cerebral volume loss for age, with resultant ventricular and sulcal prominence.? There are periventricular and deep white matter chronic small vessel ischemic changes.? There is intracranial internal carotid artery atherosclerosis.? ? Skull and face:? Calvarium and visualized facial bones appear intact, without suspicious lesions.? ? Sinuses:? Visualized sinuses demonstrate mild fluid within the sphenoid sinus. ? IMPRESSION:? ? 1. No acute intracranial process. ? 2. Moderate to severe atrophy and chronic microvascular ischemic changes. ? ? ? Dictated by: Radha Zhu M.D. on 03/28/2022 at 14:14 ? ? Approved by: Radha Zhu M.D. on 03/28/2022 at 14:15 ? ECG Data Interpretation: Sinus rhythm rate 78 NV interval 206 QRS 130 QT 434 q waves noted in anterior lateral similar to previous MDM Narrative Medical decision making narrative: Is patient is some hallucinations. It does appear that she has a UTI, she is given a dose of Rocephin. Hallucinations may also be contributed by tramadol. She has been seen and evaluated by physical therapy. He states that she does need 24/7 assistance. She does not have family she has a lot of great friends but there also elderly. They were quite concerned for her. Blood work is overall reassuring does not appear septic. Head CT is negative. Abdominal CT confirms constipation, possibly from opiates Dr. Jerez accepts patient Discharge Plan Departure Patient Disposition: Admitted as Observation Clinical Impression: Closed compression fracture of L1 vertebra, Compression fracture of thoracic vertebra, Acute UTI Admit Date/Time: 03/28/22 16:11 Admit Provider: Cathy Ledezma
--- NOTE | 2022-03-28 12:59 | DI.CT.S_ITS ---
PROCEDURE: CT ABDOMEN PELVIS W CON INDICATIONS: LLQ pain remotte hx pancreatic cancer TECHNIQUE: After the administration of intravenous contrast, axial sections acquired from the lung bases to the pubic symphysis. Coronal and sagittal reformats were performed. For radiation dose reduction, the following was used: automated exposure control, adjustment of mA and/or kV according to patient size. COMPARISON: None. FINDINGS: Image quality: Excellent. Lung bases: Unremarkable. Heart: No significant findings. ABDOMEN: Liver: Unremarkable. Gallbladder: Surgically absent. Biliary ducts: Unremarkable. Pancreas: Remote Whipple procedure no pancreatic bed mass noted. Spleen: Unremarkable. Adrenal Glands: Unremarkable. Kidneys and Ureters: Right kidney is surgically absent. The anterior upper pole of the left kidney is atrophied consistent with remote insult. Stomach and Bowel: Remote gastric bypass. Bowel unremarkable. Moderately large fecal load. Peritoneum: No abnormal intraperitoneal fluid. No free air. Ventral Wall: No hernias. Abdominal Nodes: No retroperitoneal or mesenteric adenopathy by size criteria. Vessels: Aorta and inferior vena cava are normal in size. PELVIS: Pelvic Organs: Uterus is surgically absent. Bladder: Unremarkable. Pelvic Nodes: No enlarged lymph nodes. Miscellaneous: No hernias are seen. Bones: Age indeterminate superior endplate compression of T12 and inferior endplate compression of L1. IMPRESSION: 1. Remote Whipple procedure, remote cholecystectomy, remote right nephrectomy, remote hysterectomy. 2. No evidence of acute abdominal process. 3. Age indeterminate fractures of T12 and L1. 4. 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 4. Moderately large fecal load. Dictated by: Benny Mcgowan M.D. on 03/28/2022 at 14:35 Approved by: Benny Mcgowan M.D. on 03/28/2022 at 14:42
--- NOTE | 2022-03-28 13:04 | DI.CT.S_ITS ---
PROCEDURE: CT HEAD/BRAIN WO CON INDICATIONS: frequent falls TECHNIQUE: Noncontrast 4.5 mm thick angled axial sections acquired from the foramen magnum to the vertex, with coronal and sagittal reformats. For radiation dose reduction, the following was used: automated exposure control, adjustment of mA and/or kV according to patient size. COMPARISON: [facility], CT, CT HEAD/BRAIN WO CON, 02/25/2020, 13:10. FINDINGS: Image quality: Excellent. CSF spaces: Basal cisterns are patent. No extra-axial fluid collections. The ventricles are symmetric in size and shape. Brain: No intracranial bleeds or masses. There is cerebral volume loss for age, with resultant ventricular and sulcal prominence. There are periventricular and deep white matter chronic small vessel ischemic changes. There is intracranial internal carotid artery atherosclerosis. Skull and face: Calvarium and visualized facial bones appear intact, without suspicious lesions. Sinuses: Visualized sinuses demonstrate mild fluid within the sphenoid sinus. IMPRESSION: 1. No acute intracranial process. 2. Moderate to severe atrophy and chronic microvascular ischemic changes. Dictated by: Radha Zhu M.D. on 03/28/2022 at 14:14 Approved by: Radha Zhu M.D. on 03/28/2022 at 14:15
--- NOTE | 2022-03-28 13:55 | PT.IIE ---
Surgical History (Last Reviewed 03/28/22 @ 13:14 by Bhavana Joe DO) Status post breast reduction Status post hysterectomy Medical History (Last Reviewed 03/28/22 @ 13:14 by Bhavana Joe DO) Adrenal insufficiency Physical Therapy Inpatient Evaluation/Re-Eval M1 PT/OT-IP Prior Functional Status Start: 03/28/22 15:40 Freq: Status: Active Protocol: Document 03/28/22 13:55 AB (Rec: 03/28/22 15:58 [facility] Medical Review Prior Functional Status Medical History Reviewed Yes Communication able to make needs known Mobility and Gait pt stated that she is modified independent with all mobilities and ambulation without AD indoors and uses a quad cane for outdoor mobility Prior Functional Level (Other details) pt s/p fall 03/20/22 and sustained a compression fx. pt stated that she was given oxycodone for pain when she went home but then got changed recently to tramadol and started having hallucinations. Social History Household Members none Living Arrangements House Number of Floors (Floors) One Floor Number of Stairs To Enter/Railing? 3 steps R rail ascending Home Environment Walk in Shower Home Equipment Quad Cane,Shower Seat without Backrest,Hand Held Shower,Grab Bars Near Toilet,Grab Bars In Shower Additional Social History Comment pt stated that a FWW or quad cane will not fit inside the house for her to use M2 PT-IP Current Condition Start: 03/28/22 15:40 Freq: Status: Active Protocol: Document 03/28/22 13:55 AB (Rec: 03/28/22 15:58 [email or web address] Physical Therapy Current Condition Current Condition Evaluation Date 03/28/22 Treatment Diagnosis hallucinations; LBP; difficulty in walking Onset Date 03/28/22 M3 PT-IP Subjective Start: 03/28/22 15:40 Freq: Status: Active Protocol: Document 03/28/22 13:55 AB (Rec: 03/28/22 15:58 [facility]) Subjective Physical Therapy Visit Type Type Initial Evaluation Visit Start Time 13:55 Visit Stop Time 15:15 Total Visit Minutes 80 Number of EDUCATIONAL ASSISTANT Visits 0 Physical Therapy Visit Comments Patient Comments agreeable to do PT M4 PT-IP Mobility and Gait Start: 03/28/22 15:40 Freq: Status: Active Protocol: Document 03/28/22 13:55 AB (Rec: 03/28/22 15:58 AB [id number]) PT-Bed Mobility Assessment Rolling Level of Assist Moderate Assistance,Maximal Assistance Supine to Sit Supine to Sit Moderate Assistance,Maximum Assistance Sit to Supine Sit to Supine Moderate Assistance,Maximum Assistance PT-Transfer Assessment Sit to and From Stand Sit to and from Stand Minimal Assistance,1 Person Assistance,Use of Upper Extremities Equipment Transfer Assistive Device Gait Belt,Front Wheeled Walker Orthotic/Prosthetic Devices or Brace: No Comments Mobility Comments pt educated on back precautions and log roll bed mobility. completed log roll supine to sit mod to max A and max cues. able to sit on EOB CGA. completed sit to stand min A and cues and ambulated in room ~ 20 ft using FWW min A and cues. presents with shuffling gait with decrease hip/knww elevation. pt went to EOB and completed sit to supine mod to max A and cues. positioned pt in bed. call light and [facility] Gait Assessment Gait Gait Assistance Required: Minimum Assistance,Moderate Assistance,1 Person Assist Distance (Feet) 20 Able to Maintain Weight Bearing Status Yes During Gait Assistive Devices Assistive Device Gait Belt,Front Wheeled Walker Orthotic/Prosthetic Devices or Brace: No Gait Deviations General Gait Pattern Decreased Stride Length, Decreased Feet Clearance,Step- to Gait Factors Limiting Gait Function Factors Limiting Gait Function Decreased Activity Tolerance, Decreased Strength,Difficulty Following Directions,Limited Range of Motion,Pain,Poor Balance,Poor Safety Awareness PT-Balance Assessment Sitting Balance and Reactions Static Sitting Balance Ability Good Dynamic Sitting Balance Ability Fair Standing Balance and Reactions Static Standing Balance Ability Fair Dynamic Standing Balance Ability Poor Device Used FWW M5 PT-IP Objective Assessments Start: 03/28/22 15:40 Freq: Status: Active Protocol: Document 03/28/22 13:55 AB (Rec: 03/28/22 15:58 AB [email or web address]) Orientation Orientation/Cognition Level of Alertness Alert Orientation Name Language Function Ability Kyrgyz as Second Language, Hard of Hearing Safety Awareness Decreased Safety Awareness Gross Range of Motion Lower Extremity ROM Assessment Within Functional Limits Strength Lower Extremity Strength Assessment Within Functional Limits Muscle Tone Muscle Tone WNL Yes M6 PT-IP Treatment Start: 03/28/22 15:40 Freq: Status: Active Protocol: Document 03/28/22 13:55 AB (Rec: 03/28/22 15:58 AB [email or web address]) Physical Therapy Treatment Education Education Provided Precautions,Safety M7 PT-IP Assessment and Plan Start: 03/28/22 15:40 Freq: Status: Active Protocol: Document 03/28/22 13:55 AB (Rec: 03/28/22 15:58 AB [id number]) PT Summary Assessment and Plan Potential Rehabilitation Potential Fair Status of Condition at Evaluation Evolving Summary Impairments Pain,ROM,Strength,Balance, Coordination,Sensation,Tone, Cognition,Bed Mobility, Transfers,Gait,Activity Tolerance Assessment Summary Pt eval received from ER to determine pt's safety to d/c home. Pt currently requires mod to max A with mobility and unable to tolerate much activity due to c/o increas LBP. pt also does not have any assistance at home. Pt at this time is not safe to go home and may need to d/c to SNF rehab. Goals Bed Mobility Goal Standby Assistance Transfer Goal Standby Assistance,Front Wheeled Walker Gait Goal Standby Assistance,Front Wheel Walker Gait Distance 100 Other Goals improve bed mobility, transfers and ambulation using quad cane 150 ft SBA up/down 3 steps R rail ascending SBA Days to Meet Goals 10 Frequency of Treatment Frequency Of Treatment Once a Day Treatment Plan Physical Therapy Treatment Plan Bed Mobility Training,Transfer Training,Gait Training, Therapeutic Exercise,Balance Retraining,Post Op Education, Discharge Planning,Hot or Cold Pack,Neuromuscular Re-ed, Coordination Retraining,Manual Therapy Precautions Lumbar Precautions Log Roll,No Twisting,Limit Bending,Lifting Restriction of 10 lbs Recommendations To Nursing Amount of Assist Needed 1 Person Assist Discharge Recommendations PT Discharge Recommendations Home with 24/02 Assist Available,Home Health,SNF Rehab,Home vs SNF Equipment Needed for Home Before FWW if not safe with quad Discharge cane Transportation Needs at Discharge Wheelchair/Cabulance
[2022-03-28 14:22] LABS: Appearance Urine UA CLOUDY; Bilirubin Urine UA NEGATIVE (NEGATIVE); Color Urine UA YELLOW; Glucose Urine UA NEGATIVE (Negative); Ketones Urine UA NEGATIVE (NEGATIVE); Leukocyte Esterase Urine UA 2+ (NEGATIVE); Nitrite Urine UA NEGATIVE (Negative); Occult Blood Urine UA 1+ (Negative); Protein Urine UA 1+ (Negative); Specific Gravity Urine UA 1.025 (1.000-1.035); Urobilinogen Urine UA 0.2 E.U./dL (0.2)
[2022-03-28 14:25] LABS: Ur Creatinine Normal (Normal); Ur Specific Gravity Normal (Normal); Urine pH Normal (Normal)
[2022-03-28 14:26] LABS: UR Morphine/Opiate cutoff 300 Negative (Negative); Urine Amphetamines Negative (Negative); Urine Barbiturates Negative (Negative); Urine Benzodiazepines Negative (Negative); Urine Cocaine Negative (Negative); Urine MDMA Negative (Negative); Urine Methadone Negative (Negative); Urine Methamphetamines Negative (Negative); Urine Oxycodone Positive (Negative); Urine Phencyclidine Negative (Negative); Urine Tricyclic Antidepressant Negative (Negative)
[2022-03-28 14:28] LABS: Bacteria Urine Many (>30); Culture Indicated Urine Specimen Cultured; RBC Urine 1-5/HPF (0-5/HPF); WBC Urine >100/HPF (0-5/HPF)
[2022-03-28] MEDS: cefTRIAXone 1,000 MG in SODIUM CHLORIDE 0.9% 100 ML 200 MG IV (16:14)
--- NOTE | 2022-03-28 16:57 | CM.IDA ---
Initial DCP Assessment Patient is 77 y/o female who presents to ED via EMS due to concerns for dizziness, hallucinations, pain and reports 4 days without eating. Patient has hx of GLFs, recent T12 compression fracture and possible L1 Compression fracture. Patient has hx of pancreatic cancer from 18 years ago and Adrenal insufficiency. Patient's PCP is Dr. Jackson, Patient has MCR, [facility], [facility] MCR and [facility]. Patient is DNR/selective treatment. Patient is A/Ox3. Patient presents to ED with friend. Patient and friend endorse that there are a few friends that check in on patient. Patient resides alone in small space on the first floor of her apartment. Per EMS upon patient's arrival, there were concerns about the condition of patient's home and EMS were to report to APS. Patient and friend report that patient started hallucinating after Orthopedic f/u rx for Tramadol after Oxycodone medication did not address pain. Patient's friend states that at baseline patient would not even take tylenol for pain and patient reports that the prescribed pain medications are not addressing her pain. Patient endorses she saw people in her home which frightened her and patient. In ED patient room, patient thought she heard someone saying her friend's name. Patient's friend endorses that patient has recently been confused, dizzy and lacking strength and balance. Patient endorses that she generally falls backwards when she falls. Patient endorses that she has a wheelchair, quad cane, and FWW but such DMEs due not fit in her home. Patient endorses in the past she has used the spence to get around the 250 square feet first level of her home. Patient endorsed that she has not eaten in about 4 days. Patient has current Meals on Wheels services, and it is reported that patient's friends drop off food and go grocery shopping for her as well as do her laundry. Patient's friend shows [employer] paperwork for patient's approval to [facility] [employer] ([employer]) in which patient is eligible for caregiver at home but there are no caregivers in the area to serve patient. Patient endorses she is hoping for SNF rehab to rebuild her strength and mobility to return home during her fracture recovery. Patient's friends indicate the same as they are not able to care for patient regularly. Patient has been evaluated by PT in the ED and it is recommended that patient is in need of 24/7 assistance. Per ED provider Dr. Joe patient is admitted to acute care and accepted by Hospitalist Dr. Jerez due to concern for patient's acute UTI, and compression fractures. Plan: Patient to admit to acute care, PT and OT to f/u with patient, DCP to f/u with plan of care. 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 No History Provided By Patient,Friend,Medical Record Prior Living Arrangements House Household Members none Type of transporation used prior to Relies on Others admit Independent with ADL's No Is patient alert and oriented? Yes Needs Assistance With Bathing,Eating,Grooming,Meal Prep,Managing Medications,Home Chores / Shopping Caregiver for Another No Community Services used prior to Home Delivered Meals admission: DME Already Rented / Owned Wheelchair,FWW / Walker,Cane Patient/Family Preference [facility] Facility Please Provide Date Initial DC 03/28/22 Assessment Was Performed ED Psychiatric Symptoms Assessment Start: 03/28/22 16:27 Freq: Status: Active Protocol: Document 03/28/22 16:27 SB (Rec: 03/28/22 16:28 SB [id number]) Psychiatric Symptoms Assessment Level of Consciousness Disoriented Hallucination Type Auditory
[2022-03-28 17:58] LABS: COVID19 -Nasal RAPID Negative (Negative)
[2022-03-28] MEDS: HEPARIN 5,000 UNIT/ML VIAL 5000 UNIT SUBCUT (21:48)
[2022-03-28] MEDS: SODIUM CHLORIDE 0.9% FLUSH 10 ML IV (21:49)
[2022-03-28] MEDS: ACETAMINOPHEN 325 MG TABLET 650 MG PO (23:51)
--- NOTE | 2022-03-28 23:57 | PM.HP.1 ---
History of Present Illness History of Present Illness Date Patient Seen: 03/28/22 Time Patient Seen: 20:30 Chief complaint: Hallucinations Narrative: Ms. Santiago is a 77W with PMH pancreatic cancer s/p whipple over a decade ago, also noted on chart to have adrenal insufficiency, who presents to the hospital with confusion. She has been having frequent falls at home. She was last seen just over a week ago and was found to have t12 and possible L1 compression fracture. She had oxycodone prescribed for pain, and later she was given tramadol to switch to when she had outpatient follow up. She states she has been having hallucinations but she can not describe them to me, she is quite tangential on speaking to her. Her main complaint to me is continued back pain. She did have some nausea earlier, she feels mild shortness of breath as well. She has no chest pain. No cough. No fevers/chills. No dysuria. In the ED workup was done, vitals notable for elevated blood pressure in the systolic 160s, and heart rate in the 90s. Labs notable for WBC 8.4, hgb 12.3, plts 409. Creatinine 1.22. Procal 0.16. Lactate 1.2, ammonia negative.UA wth 2+ leuks, >100 WBCs, and many bacteria. CT abdomen shows remove whipple and t12 and L1 fractures, along with constipation. CT head with no acute process. EKG with no acute changes. She was ordered for antibiotics and admitted for further treatment. Family history: father with CAD Patient History Medical History Adrenal insufficiency Surgical History Status post breast reduction Status post hysterectomy Family & Social History Social History: household members none Prior Living Arrangements House Safety & Behavioral: Feels Safe in Current Yes Environment Been Physically Hurt or No Threatened By a Person Tobacco & Substance use: Smoking Status Never smoker alcohol intake current alcohol intake frequency holiday/special occasion Substance Use Type does not use Meds Home Medications and Allergies Home Medications Medication Instructions Recorded Confirmed Type tramadol 50 mg tablet See Rx Instructions .Route 03/28/22 03/28/22 History .COMPLEX PRN Pain (Scale Score 4-6) Allergies Allergy/AdvReac Type Severity Reaction Status Date / Time aspirin [ASPIRIN] Allergy Unknown kidney Verified 11/15/20 16:36 probs ibuprofen [IBUPROFEN] Allergy Unknown Verified 11/15/20 16:36 Iodine and Iodide Containing Allergy Unknown pt only Verified 11/15/20 16:36 Produc has one [IODINE AND IODIDE kidney CONTAINING PRODUC] Review of Systems Review of Systems Narrative: 14 systems reviewed and negative aside from what is noted in HPI Exam Vital Signs (past 8 hours): - 03/28/22 16:00 03/28/22 16:00 03/28/22 16:30 Temperature Pulse Rate 81 84 Respiratory Rate Blood Pressure 154/76 H Pulse Oximetry 97 94 Oxygen Flow Rate 03/28/22 17:00 03/28/22 17:30 03/28/22 17:40 Temperature 98.3 F Pulse Rate 79 84 79 Respiratory Rate 19 Blood Pressure 150/89 H Pulse Oximetry 97 98 98 Oxygen Flow Rate 0 03/28/22 20:00 Temperature 97.6 F Pulse Rate 81 Respiratory Rate 16 Blood Pressure 136/73 Pulse Oximetry 96 Oxygen Flow Rate 0 Oxygen Delivery Method Room Air Oxygen Flow Rate 0 Narrative Exam Narrative: GEN: thin, frail, no acute distress HEENT: moist mucous membranes, PERRL NECK: trachea midline. no jvd PULM: clear bilaterally ABD: soft, nontender, nondistended, no organomegaly CV: regular rate and rhythm, no murmurs EXT: warm and well perfused with no edema NEURO: awake, alert, no focal deficits but is tangential and confused Objective Labs Result Diagrams: 03/28/22 11:43 03/28/22 11:43 Labs: Laboratory Results - last 24 hr 03/28/22 03/28/22 03/28/22 11:43 11:43 11:43 WBC 8.4 RBC 3.60 L Hgb 12.3 Hct 36.9 MCV 102.5 H MCH 34.1 H MCHC 33.2 RDW 12.9 Plt Count 409 H Neut % (Auto) 52.8 Lymph % (Auto) 18.1 L Cochran % (Auto) 9.1 Eos % (Auto) 19.3 H Baso % (Auto) 0.7 Neut # (Auto) 4400 Lymph # (Auto) 1500 Cochran # (Auto) 800 Eos # (Auto) 1600 H Baso # (Auto) 100 PT 13.5 H INR 1.2 APTT 31 Sodium 141 Potassium 4.4 Chloride 110 H Carbon Dioxide 20 L BUN 29 H Creatinine 1.22 H Estimated GFR 45 L BUN/Creatinine Ratio 23.8 H Glucose 110 Lactate Calcium 9.1 Total Bilirubin 0.5 AST 38 H ALT 25 Alkaline Phosphatase 172 H Ammonia Total Creatine Kinase 71 CK-MB (CK-2) TNP CK-MB (CK-2) Rel Index TNP Troponin I < 0.012 Total Protein 8.4 H Albumin 4.1 Globulin 4.3 H Albumin/Globulin Ratio 1.0 Procalcitonin 0.16 TSH Urine Color Urine Appearance Urine pH Ur Specific [place] Urine Protein Urine Glucose (UA) Urine Ketones Urine Occult Blood Urine Nitrate Urine Bilirubin Urine Urobilinogen Ur Leukocyte Esterase Urine RBC Urine WBC Urine Bacteria Ur Culture Indicated? Salicylates < 1.0 U Opiates 300ng/mL cut Ur Oxycodone Screen Urine Methadone Screen Acetaminophen < 10 Ur Barbiturates Screen U Tricyclic Antidepress Ur Phencyclidine Scrn Ur Amphetamines Screen U Methamphetamines Scrn Ur MDMA Scrn (Ecstasy) U Benzodiazepines Scrn Urine Cocaine Screen U Marijuana (THC) Screen Ethyl Alcohol < 10 SARS-CoV-2 (PCR) 03/28/22 03/28/22 03/28/22 11:43 11:43 12:12 WBC RBC Hgb Hct MCV MCH MCHC RDW Plt Count Neut % (Auto) Lymph % (Auto) [place] % (Auto) Eos % (Auto) Baso % (Auto) Neut # (Auto) Lymph # (Auto) [place] # (Auto) Eos # (Auto) Baso # (Auto) PT INR APTT Sodium Potassium Chloride Carbon Dioxide BUN Creatinine Estimated GFR BUN/Creatinine Ratio Glucose Lactate 1.2 Calcium Total Bilirubin AST ALT Alkaline Phosphatase Ammonia < 9 L Total Creatine Kinase CK-MB (CK-2) CK-MB (CK-2) Rel Index Troponin I Total Protein Albumin Globulin Albumin/Globulin Ratio Procalcitonin TSH 2.48 Urine Color Urine Appearance Urine pH Ur Specific [place] Urine Protein Urine Glucose (UA) Urine Ketones Urine Occult Blood Urine Nitrate Urine Bilirubin Urine Urobilinogen Ur Leukocyte Esterase Urine RBC Urine WBC Urine Bacteria Ur Culture Indicated? Salicylates U Opiates 300ng/mL cut Ur Oxycodone Screen Urine Methadone Screen Acetaminophen Ur Barbiturates Screen U Tricyclic Antidepress Ur Phencyclidine Scrn Ur Amphetamines Screen U Methamphetamines Scrn Ur MDMA Scrn (Ecstasy) U Benzodiazepines Scrn Urine Cocaine Screen U Marijuana (THC) Screen Ethyl Alcohol SARS-CoV-2 (PCR) 03/28/22 03/28/22 03/28/22 13:35 13:35 17:37 WBC RBC Hgb Hct MCV MCH MCHC RDW Plt Count Neut % (Auto) Lymph % (Auto) [place] % (Auto) Eos % (Auto) Baso % (Auto) Neut # (Auto) Lymph # (Auto) [place] # (Auto) Eos # (Auto) Baso # (Auto) PT INR APTT Sodium Potassium Chloride Carbon Dioxide BUN Creatinine Estimated GFR BUN/Creatinine Ratio Glucose Lactate Calcium Total Bilirubin AST ALT Alkaline Phosphatase Ammonia Total Creatine Kinase CK-MB (CK-2) CK-MB (CK-2) Rel Index Troponin I Total Protein Albumin Globulin Albumin/Globulin Ratio Procalcitonin TSH Urine Color Yellow Urine Appearance Cloudy Urine pH 5.0 Ur Specific [place] 1.025 Urine Protein 1+ H Urine Glucose (UA) Negative Urine Ketones Negative Urine Occult Blood 1+ H Urine Nitrate Negative Urine Bilirubin Negative Urine Urobilinogen 0.2 Ur Leukocyte Esterase 2+ H Urine RBC 1-5/hpf Urine WBC >100/hpf H Urine Bacteria Many (>30) H Ur Culture Indicated? Specimen cultured Salicylates U Opiates 300ng/mL cut Negative Ur Oxycodone Screen Positive H Urine Methadone Screen Negative Acetaminophen Ur Barbiturates Screen Negative U Tricyclic Antidepress Negative Ur Phencyclidine Scrn Negative Ur Amphetamines Screen Negative U Methamphetamines Scrn Negative Ur MDMA Scrn (Ecstasy) Negative U Benzodiazepines Scrn Negative Urine Cocaine Screen Negative U Marijuana (THC) Screen TNP Ethyl Alcohol SARS-CoV-2 (PCR) Negative Assessment & Plan Assessment & Plan narrative: 1. Acute encephalopathy -suspect secondary to infection and pain medications -due to documentation of adrenal insufficiency will send cortisol AM level -ordered antibiotics -hold pain medications -check b12 2. UTI -continue ceftriaxone -follow up urine cultures 3. CKD stage 2 -check creatinine daily 4. Back pain with recent compression fractures -careful with opiates -tylenol and lidocaine patch for now 5. Cachexia -dietary consult -suspect secondary to previous abdominal surgery, per pt weight is chronically low CODE: DNR Anitra Phillips, daughter I have utilized all available resources to reconcile the patient's home medications. Time Spent With Patient Critical Care time: I spent a total of [] minutes of critical care time on this patient's care today; this time is exclusive of procedural time. Quality VTE Deep Vein Thrombosis/Pulmonary Embolism Present on Admission: No
[2022-03-29 00:15] VITALS: BP 141/86; PULSE 81; RESP 16; TEMP 36.7; O2SAT 97
[2022-03-29 05:45] VITALS: BP 118/64; PULSE 78; RESP 12; TEMP 36.4; O2SAT 96
[2022-03-29 05:49] LABS: Add Manual Diff / Slide Review NO; Basophils Absolute Auto 100 /uL (0-100); Basophils Percent Auto 0.8 % (0-2); Eosinophils Absolute Auto 1400 /uL (0-450); Eosinophils Percent Auto 16.2 % (2-4); Hematocrit 31.8 % (36-46); Hemoglobin 10.7 g/dL (12.0-16.0); Lymphocytes Absolute Auto 1700 /uL (1100-4500); Lymphocytes Percent Auto 20.4 % (25-40); Mean Corpuscular HGB Conc 33.8 % (30-36); Mean Corpuscular Hemoglobin 34.6 PG (26-34); Mean Corpuscular Volume 102.3 fL (80-100); Monocytes Absolute Auto 900 /uL (0-900); Monocytes Percent Auto 10.2 % (3-14); Neutrophils Absolute Auto 4400 /uL (1500-7000); Neutrophils Percent Auto 52.4 % (50-75); Platelet Count 340 X10^3/uL (150-400); Red Blood Cell Count 3.11 X10^6/uL (4.0-5.2); Red Cell Distribution Width 13.2 % (11.6-14.8); White Blood Cell Count 8.5 X10^3/uL (4.5-11.0)
[2022-03-29 05:50] LABS: BUN Creatinine Ratio 22.5 (6-22); Blood Urea Nitrogen 23 mg/dL (7-17); Calcium 8.4 mg/dL (8.4-10.2); Carbon Dioxide 19 mmol/L (22-32); Chloride 112 mmol/L (98-107); Estimated Glomerular Filt Rate 56 mL/min (>60); Glucose 90 mg/dL (80-110); HEMOLYSIS < 15 (0-50); Potassium 4.5 mmol/L (3.4-5.1); Sodium 140 mmol/L (137-145)
[2022-03-29 06:28] LABS: Cortisol AM (Before 10AM) 9.55 ug/dL (4.46-22.7)
[2022-03-29 06:46] LABS: Vitamin B12 324 pg/mL (239-931)
[2022-03-29 08:00] VITALS: O2SAT 98
--- NOTE | 2022-03-29 10:11 | PM.PN.1 ---
Subjective Subjective Date Patient Seen: 03/29/22 Interval history: 77-year-old female with remote pancreatic cancer status post Whipple procedure, possible underlying adrenal insufficiency was admitted with acute toxic encephalopathy in the setting of opiate use for recent fall with T12 and L1 compression fractures and UTI. Patient reports she has continued to hallucinate overnight. She believes that we were having a play in the hospital. She states that the nurses and staff who come into the room are incorporated into her hallucinations. She states the hospital has very strong signals and sounds. She does complain of a mild headache today. She is also complaining of nausea. However, she does not wish to take any medication for nausea as she feels like the medications have been causing her confusion/hallucinations. Exam Vital Signs (past 8 hours): - 03/29/22 05:45 Temperature 97.6 F Pulse Rate 78 Respiratory Rate 12 Blood Pressure 118/64 Pulse Oximetry 96 Oxygen Flow Rate 0 Oxygen Delivery Method Room Air Oxygen Flow Rate 0 Narrative Exam Narrative: GEN: Cachectic elderly female, Alert and oriented x 3, NAD HEENT:NC, Face symmetric CHEST: Respiratory excursions symmetric, diminished but CTAB CV: RRR, no M/R/G ABD: Soft, NT/ND, BT present in all 4 quadrants, no organomegaly or masses EXTR: warm, well perfused, no C/C/E SKIN: warm and dry, no rash NEURO: Alert and oriented x 3, nonfocal Objective Labs Result Diagrams: 03/29/22 05:17 03/29/22 05:17 Labs: Laboratory Results - last 24 hr 03/28/22 03/28/22 03/28/22 11:43 11:43 11:43 WBC 8.4 RBC 3.60 L Hgb 12.3 Hct 36.9 MCV 102.5 H MCH 34.1 H MCHC 33.2 RDW 12.9 Plt Count 409 H Neut % (Auto) 52.8 Lymph % (Auto) 18.1 L Hardy % (Auto) 9.1 Eos % (Auto) 19.3 H Baso % (Auto) 0.7 Neut # (Auto) 4400 Lymph # (Auto) 1500 Hardy # (Auto) 800 Eos # (Auto) 1600 H Baso # (Auto) 100 PT 13.5 H INR 1.2 APTT 31 Sodium 141 Potassium 4.4 Chloride 110 H Carbon Dioxide 20 L BUN 29 H Creatinine 1.22 H Estimated GFR 45 L BUN/Creatinine Ratio 23.8 H Glucose 110 Lactate Calcium 9.1 Total Bilirubin 0.5 AST 38 H ALT 25 Alkaline Phosphatase 172 H Ammonia Total Creatine Kinase 71 CK-MB (CK-2) TNP CK-MB (CK-2) Rel Index TNP Troponin I < 0.012 Total Protein 8.4 H Albumin 4.1 Globulin 4.3 H Albumin/Globulin Ratio 1.0 Vitamin B12 Procalcitonin 0.16 TSH Cortisol AM Sample Urine Color Urine Appearance Urine pH Ur Specific [place] Urine Protein Urine Glucose (UA) Urine Ketones Urine Occult Blood Urine Nitrate Urine Bilirubin Urine Urobilinogen Ur Leukocyte Esterase Urine RBC Urine WBC Urine Bacteria Ur Culture Indicated? Salicylates < 1.0 U Opiates 300ng/mL cut Ur Oxycodone Screen Urine Methadone Screen Acetaminophen < 10 Ur Barbiturates Screen U Tricyclic Antidepress Ur Phencyclidine Scrn Ur Amphetamines Screen U Methamphetamines Scrn Ur MDMA Scrn (Ecstasy) U Benzodiazepines Scrn Urine Cocaine Screen U Marijuana (THC) Screen Ethyl Alcohol < 10 SARS-CoV-2 (PCR) 03/28/22 03/28/22 03/28/22 11:43 11:43 12:12 WBC RBC Hgb Hct MCV MCH MCHC RDW Plt Count Neut % (Auto) Lymph % (Auto) Hardy % (Auto) Eos % (Auto) Baso % (Auto) Neut # (Auto) Lymph # (Auto) Hardy # (Auto) Eos # (Auto) Baso # (Auto) PT INR APTT Sodium Potassium Chloride Carbon Dioxide BUN Creatinine Estimated GFR BUN/Creatinine Ratio Glucose Lactate 1.2 Calcium Total Bilirubin AST ALT Alkaline Phosphatase Ammonia < 9 L Total Creatine Kinase CK-MB (CK-2) CK-MB (CK-2) Rel Index Troponin I Total Protein Albumin Globulin Albumin/Globulin Ratio Vitamin B12 Procalcitonin TSH 2.48 Cortisol AM Sample Urine Color Urine Appearance Urine pH Ur Specific [place] Urine Protein Urine Glucose (UA) Urine Ketones Urine Occult Blood Urine Nitrate Urine Bilirubin Urine Urobilinogen Ur Leukocyte Esterase Urine RBC Urine WBC Urine Bacteria Ur Culture Indicated? Salicylates U Opiates 300ng/mL cut Ur Oxycodone Screen Urine Methadone Screen Acetaminophen Ur Barbiturates Screen U Tricyclic Antidepress Ur Phencyclidine Scrn Ur Amphetamines Screen U Methamphetamines Scrn Ur MDMA Scrn (Ecstasy) U Benzodiazepines Scrn Urine Cocaine Screen U Marijuana (THC) Screen Ethyl Alcohol SARS-CoV-2 (PCR) 03/28/22 03/28/22 03/28/22 13:35 13:35 17:37 WBC RBC Hgb Hct MCV MCH MCHC RDW Plt Count Neut % (Auto) Lymph % (Auto) Hardy % (Auto) Eos % (Auto) Baso % (Auto) Neut # (Auto) Lymph # (Auto) Hardy # (Auto) Eos # (Auto) Baso # (Auto) PT INR APTT Sodium Potassium Chloride Carbon Dioxide BUN Creatinine Estimated GFR BUN/Creatinine Ratio Glucose Lactate Calcium Total Bilirubin AST ALT Alkaline Phosphatase Ammonia Total Creatine Kinase CK-MB (CK-2) CK-MB (CK-2) Rel Index Troponin I Total Protein Albumin Globulin Albumin/Globulin Ratio Vitamin B12 Procalcitonin TSH Cortisol AM Sample Urine Color Yellow Urine Appearance Cloudy Urine pH 5.0 Ur Specific [place] 1.025 Urine Protein 1+ H Urine Glucose (UA) Negative Urine Ketones Negative Urine Occult Blood 1+ H Urine Nitrate Negative Urine Bilirubin Negative Urine Urobilinogen 0.2 Ur Leukocyte Esterase 2+ H Urine RBC 1-5/hpf Urine WBC >100/hpf H Urine Bacteria Many (>30) H Ur Culture Indicated? Specimen cultured Salicylates U Opiates 300ng/mL cut Negative Ur Oxycodone Screen Positive H Urine Methadone Screen Negative Acetaminophen Ur Barbiturates Screen Negative U Tricyclic Antidepress Negative Ur Phencyclidine Scrn Negative Ur Amphetamines Screen Negative U Methamphetamines Scrn Negative Ur MDMA Scrn (Ecstasy) Negative U Benzodiazepines Scrn Negative Urine Cocaine Screen Negative U Marijuana (THC) Screen TNP Ethyl Alcohol SARS-CoV-2 (PCR) Negative 03/29/22 03/29/22 03/29/22 05:17 05:17 05:17 WBC 8.5 RBC 3.11 L Hgb 10.7 L Hct 31.8 L MCV 102.3 H MCH 34.6 H MCHC 33.8 RDW 13.2 Plt Count 340 Neut % (Auto) 52.4 Lymph % (Auto) 20.4 L Hardy % (Auto) 10.2 Eos % (Auto) 16.2 H Baso % (Auto) 0.8 Neut # (Auto) 4400 Lymph # (Auto) 1700 Hardy # (Auto) 900 Eos # (Auto) 1400 H Baso # (Auto) 100 PT INR APTT Sodium 140 Potassium 4.5 Chloride 112 H Carbon Dioxide 19 L BUN 23 H Creatinine 1.02 Estimated GFR 56 L BUN/Creatinine Ratio 22.5 H Glucose 90 Lactate Calcium 8.4 Total Bilirubin AST ALT Alkaline Phosphatase Ammonia Total Creatine Kinase CK-MB (CK-2) CK-MB (CK-2) Rel Index Troponin I Total Protein Albumin Globulin Albumin/Globulin Ratio Vitamin B12 Procalcitonin TSH Cortisol AM Sample 9.55 Urine Color Urine Appearance Urine pH Ur Specific [place] Urine Protein Urine Glucose (UA) Urine Ketones Urine Occult Blood Urine Nitrate Urine Bilirubin Urine Urobilinogen Ur Leukocyte Esterase Urine RBC Urine WBC Urine Bacteria Ur Culture Indicated? Salicylates U Opiates 300ng/mL cut Ur Oxycodone Screen Urine Methadone Screen Acetaminophen Ur Barbiturates Screen U Tricyclic Antidepress Ur Phencyclidine Scrn Ur Amphetamines Screen U Methamphetamines Scrn Ur MDMA Scrn (Ecstasy) U Benzodiazepines Scrn Urine Cocaine Screen U Marijuana (THC) Screen Ethyl Alcohol SARS-CoV-2 (PCR) 03/29/22 05:17 WBC RBC Hgb Hct MCV MCH MCHC RDW Plt Count Neut % (Auto) Lymph % (Auto) Hardy % (Auto) Eos % (Auto) Baso % (Auto) Neut # (Auto) Lymph # (Auto) Hardy # (Auto) Eos # (Auto) Baso # (Auto) PT INR APTT Sodium Potassium Chloride Carbon Dioxide BUN Creatinine Estimated GFR BUN/Creatinine Ratio Glucose Lactate Calcium Total Bilirubin AST ALT Alkaline Phosphatase Ammonia Total Creatine Kinase CK-MB (CK-2) CK-MB (CK-2) Rel Index Troponin I Total Protein Albumin Globulin Albumin/Globulin Ratio Vitamin B12 324 Procalcitonin TSH Cortisol AM Sample Urine Color Urine Appearance Urine pH Ur Specific [place] Urine Protein Urine Glucose (UA) Urine Ketones Urine Occult Blood Urine Nitrate Urine Bilirubin Urine Urobilinogen Ur Leukocyte Esterase Urine RBC Urine WBC Urine Bacteria Ur Culture Indicated? Salicylates U Opiates 300ng/mL cut Ur Oxycodone Screen Urine Methadone Screen Acetaminophen Ur Barbiturates Screen U Tricyclic Antidepress Ur Phencyclidine Scrn Ur Amphetamines Screen U Methamphetamines Scrn Ur MDMA Scrn (Ecstasy) U Benzodiazepines Scrn Urine Cocaine Screen U Marijuana (THC) Screen Ethyl Alcohol SARS-CoV-2 (PCR) [facility] Medical History Adrenal insufficiency Surgical History Status post breast reduction Status post hysterectomy Social History household members: none Smoking Status: Never smoker alcohol intake: current Assessment & Plan Assessment & Plan narrative: 1. Acute toxic and metabolic encephalopathy Likely multifactorial from oxycodone/tramadol as well as UTI. She continues to have some hallucinations. Cortisol level is within normal limits. Holding opiate medications. Continuing on Rocephin for UTI. Continue to avoid sedating medications. 2. UTI Continue Rocephin. Culture is pending. 3. CKD 2 GFR is somewhat improved from admission up 56. Creatinine is down from 1.2 2-1.02. Stable. 4. Nausea At this time, patient declines any medications. Zofran is available as needed. 5. Constipation She reports she has not had a bowel movement in several days. Will add senna and Colace. 6. Back pain with recent compression fractures Continue Tylenol lidocaine patches. Ambulate as able. 7. Cachexia Await dietitian consult. Continue promoting good nutrition. BMI is 13.5 Code status DNR DNI Prophylaxis Continue heparin Disposition Therapies have assessed her and have recommended home with home health versus custodial facility. Await further recommendations. Time Spent With Patient Critical Care time: I spent a total of [] minutes of critical care time on this patient's care today; this time is exclusive of procedural time. Quality VTE Deep Vein Thrombosis/Pulmonary Embolism Present on Admission: No
[2022-03-29] MEDS: LIDOCAINE PATCH 1 EACH ADH..PATCH TOP (10:21)
[2022-03-29] MEDS: SODIUM CHLORIDE 0.9% FLUSH 10 ML IV ×2 (10:22→21:09)
[2022-03-29] MEDS: SENNOSIDES 8.6 MG TABLET PO ×2 (10:22→21:08)
[2022-03-29] MEDS: DOCUSATE 100 MG CAPSULE PO ×2 (10:22→21:08)
[2022-03-29] MEDS: HEPARIN 5,000 UNIT/ML VIAL 5000 UNIT SUBCUT ×2 (10:22→21:08)
[2022-03-29 10:55] LABS: Folate 6.7 ng/mL (2.76-20.0)
[2022-03-29 13:20] VITALS: BP 140/78; PULSE 82; RESP 16; TEMP 35.9; O2SAT 95
--- NOTE | 2022-03-29 13:35 | CM.DPC ---
DCP Cont: DCP met with pt and pt friend at the bedside this morning. PT and MD recommending SNF. The medicare choice list was provided to the patient. The three choice given to DCP was [facility], [facility] and [facility] [place]. Referrals being sent to three places. DCP spoke to Diane at [facility] and message given to January for review. Pt wanting to go to rehab to get stronger. DCP to continue to follow. Inna Up RN/HANNAHP
--- NOTE | 2022-03-29 13:41 | PT-IP ANOTE ---
Pt refused PT today due to high level of fatigue. Will check back tomorrow.
--- NOTE | 2022-03-29 14:20 | DIET.CONS ---
Dietary Consultation Note Admission Date: 03/28/2022 16:11 Assessment: 77 y/o F with PMH of pancreatic cancer s/p whipple 18 years ago per report, adrenal insufficiency, and frequent falls. RD consulted for cachexia. Reports she has a difficult time gaining weight. Highest weight was 125# 50 years ago. Otherwise, weight is often 75-80s pounds. States she prefers to be 90-100s pounds. Very low BMI. States whenever she does not feel well, she loses her appetite and nothing tastes good. Endorses feeling very weak with frequent falls. No weight hx in EMR. Does not like ensure. Nutrition focused physical exam indicates severe muscle and fat wasting with significant depressions of gnosticist and orbital region, protruding clavicle and acromion process, boxed shoulders, and depressed interosseous muscles. States she has not eaten anything in the last four days, and not much over the last two weeks. Enjoys fruit. Diet recall indicates 0-3 meals per day usually (grazes on fruit, fish and chips, salad, and MOW). She is afraid to cook. States she feels she may drop a knife or fall into the frying olmedo. Ht: 165.1 cm Wt: 36.8 kg BMI: 13.5 UBW: 34-39kg Last BM: 03/29/22 (03/29/22 13:50) MNA: 4 Axel Score: 18 Diet: 03/28/22 Breakfast Heart Healthy Diet Diet Modifications: 03/28/22 Dinner General (Regular) Diet Diet Modifications: Nutrition Percent Meal Consumed 50% 03/29/22 13:25 Percent Meal Consumed 10 03/29/22 09:00 Labs: RBC 3.11 X10^6/uL (4.0-5.2) L 03/29/22 05:17 Hgb 10.7 g/dL (12.0-16.0) L 03/29/22 05:17 Hct 31.8 % (36-46) L 03/29/22 05:17 Creatinine 1.02 mg/dL (0.52-1.04) 03/29/22 05:17 Lactate 1.2 mmol/L (0.7-2.1) 03/28/22 11:43 Nutrition Diagnosis: Severe chronic protein calorie malnutrition r/t loss of appetite and inability to cook for herself aeb BMI of 13.5, reported inadequate PO over 2 weeks or more, physical signs of wasting (temporal, orbital, interosseous, clavicle, and shoulder) Interventions: Will trial fruit protein shake TID. She is also open to chocolate protein shake. EER: 4464-1223 kcals (38-40kcals/kg per malnutrition) ; 60-70g PRO (1.6-1.9g/kg per malnutrition) Monitoring/Evaluations: RD f/u 3 days, monitoring shake tolerance, weight and PO Electronically Signed by: Lawanda Grayson 03/29/22 14:20 Clinical Dietitian [address] [address]
--- NOTE | 2022-03-29 14:22 | CM.DPNOTE ---
Sent referrals to [facility] & [facility] per Inna. Evangelina Houston, [facility].
--- NOTE | 2022-03-29 14:44 | PT-IP ANOTE ---
Addendum entered and electronically signed by Kiki Gong PTA 03/29/22 14:53: Will continue to assess progress tomorrow. Original Note: Pt resting on L side with pillows supporting her observed. She politely refusal to mobilize upon arrival at 1442, she states seems as though you always arrive after I just got comfortable moving around with nursing, you can verify with them I am doings. I am really tired and just took me 30 min to get comfortable and can't work with you right now. Please come back in the morning, I do better in mornings. [employer] TENDER provided education on importance of mobilizing as much as can to improve strengthening and functional mobility endurance with verbalized understanding but pt politely stated not today.
[2022-03-29] MEDS: cefTRIAXone 1,000 MG in SODIUM CHLORIDE 0.9% 100 ML 200 MG IV (15:07)
[2022-03-29] MEDS: ACETAMINOPHEN 325 MG TABLET 650 MG PO (17:59)
[2022-03-29 20:01] VITALS: BP 116/65; PULSE 74; RESP 16; TEMP 36.7; O2SAT 97
[2022-03-29 20:50] VITALS: O2SAT 97
[2022-03-29] MEDS: ESCITALOPRAM 10 MG TABLET PO (21:08)
[2022-03-30] VITALS (7 sets, daily range): BP systolic 123–147; BP diastolic 72–87; PULSE 67–80; RESP 14–20; TEMP 36.1–36.4; O2SAT 96–99
[2022-03-30 05:30] LABS: Add Manual Diff / Slide Review NO; Basophils Absolute Auto 100 /uL (0-100); Basophils Percent Auto 1.2 % (0-2); Eosinophils Absolute Auto 1500 /uL (0-450); Eosinophils Percent Auto 17.9 % (2-4); Hematocrit 32.5 % (36-46); Hemoglobin 11.2 g/dL (12.0-16.0); Lymphocytes Absolute Auto 1900 /uL (1100-4500); Lymphocytes Percent Auto 22.7 % (25-40); Mean Corpuscular HGB Conc 34.4 % (30-36); Mean Corpuscular Volume 101.6 fL (80-100); Monocytes Absolute Auto 800 /uL (0-900); Monocytes Percent Auto 8.9 % (3-14); Neutrophils Absolute Auto 4200 /uL (1500-7000); Neutrophils Percent Auto 49.3 % (50-75); Platelet Count 385 X10^3/uL (150-400); Red Cell Distribution Width 13.2 % (11.6-14.8); White Blood Cell Count 8.5 X10^3/uL (4.5-11.0)
[2022-03-30 05:32] LABS: BUN Creatinine Ratio 16.7 (6-22); Blood Urea Nitrogen 18 mg/dL (7-17); Calcium 8.9 mg/dL (8.4-10.2); Carbon Dioxide 18 mmol/L (22-32); Chloride 111 mmol/L (98-107); Estimated Glomerular Filt Rate 53 mL/min (>60); Glucose 87 mg/dL (80-110); HEMOLYSIS < 15 (0-50); Potassium 4.3 mmol/L (3.4-5.1); Sodium 140 mmol/L (137-145)
--- NOTE | 2022-03-30 07:23 | P.PN_ITS ---
Subjective Subjective Date Patient Seen: 03/30/22 Interval history: 77-year-old female with remote pancreatic cancer status post Whipple procedure, possible underlying adrenal insufficiency was admitted with acute toxic encephalopathy in the setting of opiate use for recent fall with T12 and L1 compression fractures and UTI. Patient reports she is having fewer hallucinations overall. They're now occasional vs constant. She reports she had a BM yesterday. Denies any urinary sxs. Exam Vital Signs (past 8 hours): - 03/30/22 00:00 Temperature 97.6 F Pulse Rate 80 Respiratory Rate 20 Blood Pressure 147/87 H Pulse Oximetry 97 Oxygen Delivery Method Room Air Oxygen Flow Rate 0 Narrative Exam Narrative: GEN:? Cachectic elderly female, Alert and oriented x 3, NAD HEENT:NC, Face symmetric CHEST: Respiratory excursions symmetric, CTAB CV: RRR, no M/R/G ABD: Soft, NT/ND, BT present in all 4 quadrants, no organomegaly or masses EXTR: warm, well perfused, no C/C/E SKIN: warm and dry, no rash NEURO: Alert and oriented x 3, nonfocal Objective Labs Result Diagrams: 03/30/22 04:59 03/30/22 04:59 Labs: Laboratory Results - last 24 hr 03/29/22 03/30/22 03/30/22 05:17 04:59 04:59 WBC 8.5 RBC 3.20 L Hgb 11.2 L Hct 32.5 L MCV 101.6 H MCH 35.0 H MCHC 34.4 RDW 13.2 Plt Count 385 Neut % (Auto) 49.3 L Lymph % (Auto) 22.7 L Richardson % (Auto) 8.9 Eos % (Auto) 17.9 H Baso % (Auto) 1.2 Neut # (Auto) 4200 Lymph # (Auto) 1900 Richardson # (Auto) 800 Eos # (Auto) 1500 H Baso # (Auto) 100 Sodium 140 Potassium 4.3 Chloride 111 H Carbon Dioxide 18 L BUN 18 H Creatinine 1.08 H Estimated GFR 53 L BUN/Creatinine Ratio 16.7 Glucose 87 Calcium 8.9 Folate 6.7 PFSH Medical History Adrenal insufficiency Surgical History Status post breast reduction Status post hysterectomy Social History household members: none Smoking Status: Never smoker alcohol intake: current Assessment & Plan Assessment & Plan narrative: 1. Acute toxic and metabolic encephalopathy Likely multifactorial from oxycodone/tramadol as well as UTI.? She continues to have some hallucinations but they are improving.? Cortisol level is within normal limits.? Holding opiate medications.? Continuing on Rocephin for UTI.? Continue to avoid sedating medications. 2. Gram negative UTI Continue Rocephin.? Culture growing gram negatives, speciation pending. 3. CKD 2 GFR stable at 53. 4. Nausea Resolved. 5. Constipation She reports she had a bowel movement yesterday. 6. Back pain with recent compression fractures Will schedule acetaminophen. Continue lidocaine patches.? Ambulate as able. 7. Severe chronic protein calorie malnutrition/Cachexia Appreciate dietitian consult.? Fruit protein shakes ordered. Continue promoting good nutrition.? BMI is 13.5 8.Macrocytic anemia MCV 101.6. Hgb 11.2. Will send B12/folate. Code status DNR DNI Prophylaxis Continue heparin Disposition CM has sent referrals to several area SNFs for rehab. Time Spent With Patient Critical Care time: I spent a total of [] minutes of critical care time on this patient's care today; this time is exclusive of procedural time. Quality VTE Deep Vein Thrombosis/Pulmonary Embolism Present on Admission: No
[2022-03-30 08:48] LABS: Folate 8.1 ng/mL (2.76-20.0); Vitamin B12 341 pg/mL (239-931)
[2022-03-30] MEDS: ACETAMINOPHEN 325 MG TABLET 975 MG PO ×3 (09:16→22:48)
[2022-03-30] MEDS: ESCITALOPRAM 10 MG TABLET PO (09:17)
[2022-03-30] MEDS: LIDOCAINE PATCH 1 EACH ADH..PATCH TOP (09:17)
[2022-03-30] MEDS: HEPARIN 5,000 UNIT/ML VIAL 5000 UNIT SUBCUT ×2 (09:17→20:50)
[2022-03-30] MEDS: SODIUM CHLORIDE 0.9% FLUSH 10 ML IV ×2 (09:18→20:51)
--- NOTE | 2022-03-30 09:18 | CM.DPC ---
Addendum entered by Tala Phelps R.N. 03/30/22 12:59: Had not yet heard from [facility]. Called Franchesca back, and asked her if she can submit auth for [employer]. She stated that she will initiate today, and fax them over some information. Called [employer], and it was a voice mail indicating that they are currently closed, but can submit auth through their portal, or could leave a message. Left a message with [employer], asking for insurance auth as soon as possible for [facility]. Franchesca at [facility] has confirmed acceptance, but patient will need updated COVID booster. Asked patient if she would be willing to get a COVID booster, she stated, she would, but thought she already had it. Asked patient also if she has a daughter, and confirmed that she does, and resides in [place]. She also mentioned her daughter has 3 children, and works as a job printer, and has her hands full, so she can't help her out. Her friends stop by periodically, but unable to assist. Patient indicated, since she had her compression fractures from her falls, she has been dealing with pain, and hard to manage. She did indicate that she is continuing to get Meals on Wheels, but the food is not always good. She is hoping that skilled rehab will benefit her, so she can get stronger to go home. Original Note: DCP Cont: Called Franchesca at [facility] to see if she can accept patient. Stated that she can't accept until Friday, could try to submit auth. Called Roya at [facility], and she stated, she may not be able to take patient until Friday. Have a message out to Cecilia at [facility] as well. If no feedback from [facility], will follow up with [employer] and ask her to initiate auth. P: DCP to continue to work on [facility] placement. Tala Phelps, RN/Share[employer] Admin
--- NOTE | 2022-03-30 11:05 | PT.IPTN ---
Current Diagnoses Unspecified toxic encephalopathy (03/28/22) Physical Therapy Treatment Note M2 PT-IP Current Condition Start: 03/28/22 15:40 Freq: Status: Active Protocol: Document 03/28/22 13:55 AB (Rec: 03/28/22 15:58 AB [id number]) Physical Therapy Current Condition Current Condition Evaluation Date 03/28/22 Treatment Diagnosis hallucinations; LBP; difficulty in walking Onset Date 03/28/22 M3 PT-IP Subjective Start: 03/28/22 15:40 Freq: Status: Active Protocol: Document 03/30/22 10:49 KS (Rec: 03/30/22 12:34 KS [id number]) Subjective Physical Therapy Visit Type Type Treatment Note Visit Start Time 10:49 Visit Stop Time 11:05 Total Visit Minutes 16 Number of FIRE FIGHTER Visits 1 Physical Therapy Visit Comments Patient Comments agreeable to do PT M4 PT-IP Mobility and Gait Start: 03/28/22 15:40 Freq: Status: Active Protocol: Document 03/30/22 10:49 KS (Rec: 03/30/22 12:34 KS [id number]) PT-Bed Mobility Assessment Rolling Level of Assist Minimal Assistance,1 Person Assistance Supine to Sit Supine to Sit Minimal Assistance,1 Person Assistance Sit to Supine Sit to Supine Minimal Assistance,1 Person Assistance Scooting Scooting to Edge of Bed Minimal Assistance PT-Transfer Assessment Sit to and From Stand Sit to and from Stand Minimal Assistance,1 Person Assistance,Use of Upper Extremities Equipment Transfer Assistive Device Gait Belt,Front Wheeled Walker Orthotic/Prosthetic Devices or Brace: No Transfers Transfer Destination Bed Transfer Technique Pt ambulated w/ FWW Transfer Ability Level of Assist Minimal Assistance,1 Person Assistance,Use of Upper Extremities Comments Mobility Comments Pt in bed upon arrival and reporting fatigue but wanting to get stronger. Pt requires Min A for bed mobility and c/o increased LBP w/ mobility. Min A and cues for hand placement for sit<>stand w/ FWW. Pt ambulated ~30 ft in room w/ FWW CGA to Min A and reported fatigue, weakness, and increased pain and requested to lay back down to rest. Min A for sit<>sup. Pt left in bed w/ all needs in reach. Gait Assessment Gait Gait Assistance Required: Contact Guard Assist,Minimum Assistance,1 Person Assist Distance (Feet) 30 Able to Maintain Weight Bearing Status Yes During Gait Assistive Devices Assistive Device Gait Belt,Front Wheeled Walker Orthotic/Prosthetic Devices or Brace: No Gait Deviations General Gait Pattern Decreased Stride Length, Decreased Feet Clearance,Step- to Gait Factors Limiting Gait Function Factors Limiting Gait Function Decreased Activity Tolerance, Decreased Strength,Difficulty Following Directions,Limited Range of Motion,Pain,Poor Balance,Poor Safety Awareness Comments Gait Comments CGA to Min A w/ cues for FWW use. Pt still somewhat unsteady and reports not having enough space to fit FWW at home. PT-Balance Assessment Sitting Balance and Reactions Static Sitting Balance Ability Good Dynamic Sitting Balance Ability Fair Standing Balance and Reactions Static Standing Balance Ability Fair Dynamic Standing Balance Ability Fair Device Used FWW M5 PT-IP Objective Assessments Start: 03/28/22 15:40 Freq: Status: Active Protocol: Document 03/28/22 13:55 AB (Rec: 03/28/22 15:58 AB [id number]) Orientation Orientation/Cognition Level of Alertness Alert Orientation Name Language Function Ability Wolof as Second Language, Hard of Hearing Safety Awareness Decreased Safety Awareness Gross Range of Motion Lower Extremity ROM Assessment Within Functional Limits Strength Lower Extremity Strength Assessment Within Functional Limits Muscle Tone Muscle Tone WNL Yes M6 PT-IP Treatment Start: 03/28/22 15:40 Freq: Status: Active Protocol: Document 03/30/22 10:49 KS (Rec: 03/30/22 12:34 KS [id number]) Physical Therapy Treatment Education Education Provided Precautions,Safety M7 PT-IP Assessment and Plan Start: 03/28/22 15:40 Freq: Status: Active Protocol: Document 03/30/22 10:49 KS (Rec: 03/30/22 12:34 KS [id number]) PT Summary Assessment and Plan Potential Rehabilitation Potential Fair Summary Impairments Pain,ROM,Strength,Balance, Coordination,Sensation,Tone, Cognition,Bed Mobility, Transfers,Gait,Activity Tolerance Progress Towards Goals Slow Progress due to Pain,Slow Progress due to Activity Tolerance Assessment Summary Pt limited by pain and weakness. Able to ambulate 30 ft w/ FWW but with quick approach to fatigue. Min A for bed mobility and transfers and slightly unsteady on feet. She does not have any assistance at home nor can she fit appropriate DME in home. At this time, she would benefit from SNF to improve strength and functional mobility independence. Goals Bed Mobility Goal Standby Assistance Transfer Goal Standby Assistance,Front Wheeled Walker Gait Goal Standby Assistance,Front Wheel Walker Gait Distance 100 Other Goals improve bed mobility, transfers and ambulation using quad cane 150 ft SBA up/down 3 steps R rail ascending SBA Days to Meet Goals 10 Frequency of Treatment Frequency Of Treatment Once a Day Treatment Plan Physical Therapy Treatment Plan Bed Mobility Training,Transfer Training,Gait Training, Therapeutic Exercise,Balance Retraining,Post Op Education, Discharge Planning,Hot or Cold Pack,Neuromuscular Re-ed, Coordination Retraining,Manual Therapy Precautions Lumbar Precautions Log Roll,No Twisting,Limit Bending,Lifting Restriction of 10 lbs Recommendations To Nursing Amount of Assist Needed 1 Person Assist Discharge Recommendations PT Discharge Recommendations Home with 24/02 Assist Available,Home Health,SNF Rehab,Home vs SNF Equipment Needed for Home Before FWW if not safe with quad Discharge cane Transportation Needs at Discharge Wheelchair/Cabulance
[2022-03-30] MEDS: CEFEPIME 1 GM in SODIUM CHLORIDE 0.9% 100 ML IV (12:33)
--- NOTE | 2022-03-30 14:10 | PC.NURSE ---
Pt resting at intervals SpO2 97% RA HL LAC intact/patent. discomfort when asked. Lidocaine patch to lower back w/relief. Condition remains essentially unchanged. Call light w/in reach, pt calls appropriately for needs. Continue w/plan of care.
[2022-03-30] MEDS: SENNOSIDES 8.6 MG TABLET PO (20:50)
[2022-03-30] MEDS: DOCUSATE 100 MG CAPSULE PO (20:50)
[2022-03-30] MEDS: MELATONIN 3 MG TABLET 6 MG PO (22:48)
[2022-03-31] MEDS: ACETAMINOPHEN 325 MG TABLET 650 MG PO (04:37)
[2022-03-31 07:30] VITALS: BP 110/62; PULSE 67; RESP 14; TEMP 36.3; O2SAT 95
--- NOTE | 2022-03-31 08:13 | P.PN_ITS ---
Subjective Subjective Date Patient Seen: 03/31/22 Time Patient Seen: 13:00 Interval history: Patient states she feels fine and just wants to rest. Having intermittent nausea as well. Exam Vital Signs (past 8 hours): - 03/31/22 07:30 03/31/22 08:11 Temperature 97.3 F L 97.8 F Pulse Rate 67 60 Respiratory Rate 14 16 Blood Pressure 110/62 159/71 H Pulse Oximetry 95 94 Oxygen Delivery Method Room Air Oxygen Flow Rate 0 Narrative Exam Narrative: GEN:? Cachectic elderly female, Alert and oriented x 3, NAD HEENT:NC, Face symmetric CHEST: Respiratory excursions symmetric, CTAB CV: RRR, no M/R/G ABD: Soft, NT/ND, BT present in all 4 quadrants, no organomegaly or masses EXTR: warm, well perfused, no C/C/E SKIN: warm and dry, no rash NEURO: Alert and oriented x 3, nonfocal Objective Labs Result Diagrams: 03/30/22 04:59 03/30/22 04:59 Labs: Laboratory Results - last 24 hr 03/30/22 04:59 Vitamin B12 341 Folate 8.1 PFSH Medical History Adrenal insufficiency Surgical History Status post breast reduction Status post hysterectomy Social History household members: none Smoking Status: Never smoker alcohol intake: current Assessment & Plan Assessment & Plan narrative: 1. Acute toxic and metabolic encephalopathy, resolved Likely multifactorial from oxycodone/tramadol as well as UTI.? Was having bonilla lucinations which have resolved.? Cortisol level is within normal limits.? Holding opiate medications.? Urine growing pseudomonas, will need 5 additional days of cefepime until 04/03.? Continue to avoid sedating medications. 2. Pseudomonas UTI Switch Rocephin to cefepime.?Treat with IV for 5 days until 04/03. 3. CKD 2 GFR stable at 53. 4. Nausea -Add compazine to zofran 5. Constipation, resolved She reports she had a bowel movement. 6. Back pain with recent compression fractures Will schedule acetaminophen. Continue lidocaine patches.? Ambulate as able. 7. Severe chronic protein calorie malnutrition/Cachexia Appreciate dietitian consult.? Fruit protein shakes ordered. Continue promoting good nutrition.? BMI is 13.5 8.Macrocytic anemia MCV 101.6. Hgb 11.2. Will send B12/folate. Code status DNR DNI Prophylaxis Continue heparin Disposition Accepted to SNF and will dc on 04/01. COVID booster given 03/31. Time Spent With Patient Critical Care time: I spent a total of [] minutes of critical care time on this patient's care today; this time is exclusive of procedural time. Quality VTE Deep Vein Thrombosis/Pulmonary Embolism Present on Admission: No
[2022-03-31] MEDS: HEPARIN 5,000 UNIT/ML VIAL 5000 UNIT SUBCUT ×2 (09:04→21:02)
[2022-03-31] MEDS: LIDOCAINE PATCH 1 EACH ADH..PATCH TOP (09:06)
[2022-03-31] MEDS: ESCITALOPRAM 10 MG TABLET PO (09:32)
[2022-03-31] MEDS: SODIUM CHLORIDE 0.9% FLUSH 10 ML IV (09:40)
[2022-03-31] MEDS: ONDANSETRON 4 MG/2 ML INJ IV (09:44)
--- NOTE | 2022-03-31 11:00 | PT.IPTN ---
Current Diagnoses Unspecified toxic encephalopathy (03/28/22) Physical Therapy Treatment Note M2 PT-IP Current Condition Start: 03/28/22 15:40 Freq: Status: Active Protocol: Document 03/28/22 13:55 AB (Rec: 03/28/22 15:58 AB [id number]) Physical Therapy Current Condition Current Condition Evaluation Date 03/28/22 Treatment Diagnosis hallucinations; LBP; difficulty in walking Onset Date 03/28/22 M3 PT-IP Subjective Start: 03/28/22 15:40 Freq: Status: Active Protocol: Document 03/31/22 11:00 AW (Rec: 03/31/22 11:37 AW [id number]) Subjective Physical Therapy Visit Type Type Treatment Note Visit Start Time 10:49 Visit Stop Time 11:00 Total Visit Minutes 11 Number of FINANCIAL PLANNER Visits 0 Physical Therapy Visit Comments Patient Comments agreeable to do PT M4 PT-IP Mobility and Gait Start: 03/28/22 15:40 Freq: Status: Active Protocol: Document 03/31/22 11:00 AW (Rec: 03/31/22 11:37 AW [id number]) PT-Bed Mobility Assessment Rolling Level of Assist Standby Assistance Supine to Sit Supine to Sit Minimal Assistance,1 Person Assistance Sit to Supine Sit to Supine Minimal Assistance,1 Person Assistance PT-Transfer Assessment Sit to and From Stand Sit to and from Stand Contact Guard Assistance,1 Person Assistance,Use of Upper Extremities Equipment Transfer Assistive Device Gait Belt,Front Wheeled Walker Orthotic/Prosthetic Devices or Brace: No Transfers Transfer Destination Bed Transfer Technique Pt ambulated w/ FWW Transfer Ability Level of Assist Minimal Assistance,1 Person Assistance,Use of Upper Extremities Comments Mobility Comments Pt was lying on her right side as PT arrived. She was able to roll to her left side SBA but needed min A to right her trunk. She donned her own lumbar brace and then stood CGA. She used FWW to ambulate ~75 feet. She paused at the door to put on her face mask and had posterior LOB requiring min A to recover. During ambulation, pt had another posterior LOB. On return to the room, she requested return to bed. Min A to elevate BLE to the bed. Pt was left with call light and tray table in reach. Bed alarm was on for safety. Gait Assessment Gait Gait Assistance Required: Contact Guard Assist,Minimum Assistance,1 Person Assist Distance (Feet) 75 Able to Maintain Weight Bearing Status Yes During Gait Assistive Devices Assistive Device Gait Belt,Front Wheeled Walker Orthotic/Prosthetic Devices or Brace: No Gait Deviations General Gait Pattern Decreased Stride Length, Decreased Feet Clearance,Step- to Gait Factors Limiting Gait Function Factors Limiting Gait Function Decreased Activity Tolerance, Decreased Strength,Difficulty Following Directions,Limited Range of Motion,Pain,Poor Balance,Poor Safety Awareness Comments Gait Comments See mobility comments for details. PT-Balance Assessment Sitting Balance and Reactions Static Sitting Balance Ability Good Dynamic Sitting Balance Ability Fair Standing Balance and Reactions Static Standing Balance Ability Fair Dynamic Standing Balance Ability Fair Device Used FWW M5 PT-IP Objective Assessments Start: 03/28/22 15:40 Freq: Status: Active Protocol: Document 03/28/22 13:55 AB (Rec: 03/28/22 15:58 AB [id number]) Orientation Orientation/Cognition Level of Alertness Alert Orientation Name Language Function Ability Wolof as Second Language, Hard of Hearing Safety Awareness Decreased Safety Awareness Gross Range of Motion Lower Extremity ROM Assessment Within Functional Limits Strength Lower Extremity Strength Assessment Within Functional Limits Muscle Tone Muscle Tone WNL Yes M6 PT-IP Treatment Start: 03/28/22 15:40 Freq: Status: Active Protocol: Document 03/31/22 11:00 AW (Rec: 03/31/22 11:37 AW [id number]) Physical Therapy Treatment Education Education Provided Precautions,Safety M7 PT-IP Assessment and Plan Start: 03/28/22 15:40 Freq: Status: Active Protocol: Document 03/31/22 11:00 AW (Rec: 03/31/22 11:37 AW [id number]) PT Summary Assessment and Plan Potential Rehabilitation Potential Fair Summary Impairments Pain,ROM,Strength,Balance, Coordination,Sensation,Tone, Cognition,Bed Mobility, Transfers,Gait,Activity Tolerance Progress Towards Goals Progressing Toward Goals,Slow Progress due to Pain,Slow Progress due to Activity Tolerance Assessment Summary Pt continues to need FWW for ambulation and had posterior LOB x 2 requiring min A to recover. She does not have any assistance at home nor can she fit appropriate DME in home. At this time, she would benefit from SNF to improve strength and functional mobility independence. Goals Bed Mobility Goal Standby Assistance Transfer Goal Standby Assistance,Front Wheeled Walker Gait Goal Standby Assistance,Front Wheel Walker Gait Distance 100 Other Goals improve bed mobility, transfers and ambulation using quad cane 150 ft SBA up/down 3 steps R rail ascending SBA Days to Meet Goals 10 Frequency of Treatment Frequency Of Treatment Once a Day Treatment Plan Physical Therapy Treatment Plan Bed Mobility Training,Transfer Training,Gait Training, Therapeutic Exercise,Balance Retraining,Post Op Education, Discharge Planning,Hot or Cold Pack,Neuromuscular Re-ed, Coordination Retraining,Manual Therapy Precautions Lumbar Precautions Log Roll,No Twisting,Limit Bending,Lifting Restriction of 10 lbs Recommendations To Nursing Amount of Assist Needed Standby Assistance Discharge Recommendations PT Discharge Recommendations Home with 24/02 Assist Available,Home Health,SNF Rehab,Home vs SNF Equipment Needed for Home Before FWW if not safe with quad Discharge cane Transportation Needs at Discharge Wheelchair/Cabulance
[2022-03-31 12:00] VITALS: BP 112/58; PULSE 65; RESP 16; TEMP 36.4; O2SAT 96
[2022-03-31] MEDS: COVID-19 VACC #3, MRNA(MOD) 50 MCG/0.25 ML VIAL IM (14:23)
[2022-03-31] MEDS: CEFEPIME 1 GM in SODIUM CHLORIDE 0.9% 100 ML IV (14:27)
[2022-03-31 14:49] VITALS: BP 112/58
[2022-03-31] MEDS: PROCHLORPERAZINE 10 MG/2 ML VIAL IV (14:49)
--- NOTE | 2022-03-31 16:04 | PC.NURSE ---
Pt has been oriented x3 this shift with no hallucination. c/o nausea and medicated with zofran this am and now compazine that is working well and pt mostly sleeping
[2022-03-31 18:00] VITALS: BP 123/70; PULSE 68; RESP 18; TEMP 36.6; O2SAT 96
[2022-03-31 19:00] VITALS: O2SAT 97
[2022-03-31 21:20] VITALS: BP 114/64; PULSE 69; RESP 17; TEMP 36.1; O2SAT 97
[2022-03-31] MEDS: ACETAMINOPHEN 325 MG TABLET 975 MG PO (22:46)
[2022-03-31] MEDS: MELATONIN 3 MG TABLET 6 MG PO (22:47)
[2022-04-01 04:16] VITALS: BP 132/70; PULSE 83; RESP 17; TEMP 36.2; O2SAT 95
[2022-04-01 05:33] LABS: Add Manual Diff / Slide Review NO; Basophils Absolute Auto 0 /uL (0-100); Basophils Percent Auto 0.4 % (0-2); Eosinophils Absolute Auto 1300 /uL (0-450); Eosinophils Percent Auto 14.4 % (2-4); Hematocrit 33.8 % (36-46); Hemoglobin 11.5 g/dL (12.0-16.0); Lymphocytes Absolute Auto 1200 /uL (1100-4500); Lymphocytes Percent Auto 13.1 % (25-40); Mean Corpuscular HGB Conc 33.9 % (30-36); Mean Corpuscular Hemoglobin 34.5 PG (26-34); Mean Corpuscular Volume 101.8 fL (80-100); Monocytes Absolute Auto 800 /uL (0-900); Monocytes Percent Auto 8.7 % (3-14); Neutrophils Absolute Auto 5900 /uL (1500-7000); Neutrophils Percent Auto 63.4 % (50-75); Platelet Count 352 X10^3/uL (150-400); Red Blood Cell Count 3.32 X10^6/uL (4.0-5.2); Red Cell Distribution Width 13.3 % (11.6-14.8); White Blood Cell Count 9.3 X10^3/uL (4.5-11.0)
--- NOTE | 2022-04-01 05:41 | PC.NURSE ---
AM nurse passed down that IV failed and was removed. When I went to replace IV, patient declined requesting that it be done in the morning. Will pass on to day shift nurse.
[2022-04-01 05:45] LABS: BUN Creatinine Ratio 20.2 (6-22); Blood Urea Nitrogen 24 mg/dL (7-17); Calcium 8.4 mg/dL (8.4-10.2); Carbon Dioxide 18 mmol/L (22-32); Chloride 113 mmol/L (98-107); Estimated Glomerular Filt Rate 47 mL/min (>60); Glucose 81 mg/dL (80-110); HEMOLYSIS < 15 (0-50); Potassium 4.3 mmol/L (3.4-5.1); Sodium 138 mmol/L (137-145)
[2022-04-01 07:37] VITALS: BP 122/69; PULSE 75; RESP 16; TEMP 36.3; O2SAT 99
--- NOTE | 2022-04-01 08:06 | P.DS_ITS ---
History of Present Illness History of Present Illness Chief complaint: Hallucinations Narrative: Ms. Santiago is a 77W with PMH pancreatic cancer s/p whipple over a decade ago, also noted on chart to have adrenal insufficiency, who presents to the hospital with confusion. She has been having frequent falls at home. She was last seen just over a week ago and was found to have t12 and possible L1 compression fract ure. She had oxycodone prescribed for pain, and later she was given tramadol to switch to when she had outpatient follow up. She states she has been having hallucinations but she can not describe them to me, she is quite tangential on speaking to her. Her main complaint to me is continued back pain. She did have some nausea earlier, she feels mild shortness of breath as well. She has no chest pain. No cough. No fevers/chills. No dysuria. In the ED workup was done, vitals notable for elevated blood pressure in the systolic 160s, and heart rate in the 90s. Labs notable for WBC 8.4, hgb 12.3, pl ts 409. Creatinine 1.22. Procal 0.16. Lactate 1.2, ammonia negative.UA wth 2+ leuks, >100 WBCs, and many bacteria. CT abdomen shows remove whipple and t12 and L1 fractures, along with constipation. CT head with no acute process. EKG with no acute changes. She was ordered for antibiotics and admitted for further treatment. Discharge Providers Provider Date of admission: 03/28/22 16:11 Discharge Date: 04/01/22 Primary care physician: Anitra Jackson DO Consults: 03/28/22 11:43 Consult to [facility] [place] - [employer]ar[employer] Tender Stat Comment: 03/28/22 13:00 Consult to Physical Therapy Evaluate & Treat Comment: home health Physician Instructions: Evaluate and Treat 03/29/22 01:52 Consult to Dietitian, Adult Routine Comment: Reason For Exam: cachectic Discharge provider: Tristen Tran DO Summary Hospital Course Discharge Diagnosis: 1. Acute toxic and metabolic encephalopathy, resolved Likely multifactorial from oxycodone/tramadol as well as UTI.? Was having hallucinations which have resolved.? Cortisol level is within normal limits.? Holding opiate medications.? Urine growing pseudomonas, will need 5 additional days of antibiotics until 04/03.? Continue to avoid sedating medications. 2. Pseudomonas UTI Switch Rocephin to cefepime.?Treat for 5 days until 04/01. 3. CKD 2 GFR stable at 53. 4. Nausea, improved -Add compazine to zofran 5. Constipation, resolved She reports she had a bowel movement. 6. Back pain with recent compression fractures Will schedule acetaminophen.? Continue lidocaine patches.? Ambulate as able. 7. Severe chronic protein calorie malnutrition/Cachexia Appreciate dietitian consult.? Fruit protein shakes ordered. Continue promoting good nutrition.? BMI is 13.5 8.Macrocytic anemia MCV 101.6.? Hgb 11.2.? B12 341 and folate normal at 8.1. From B12 supplementation given low normal B12 levels. Hospital Course: Admitted for acute encephalopathy secondary to UTI. Received IV cefepime as urine grew Pseudomonas sensitive to this for 3 days and will need a 2 additional days of ciprofloxacin. Encephalopathy improved with treatment. Patient has acute compression fractures treated with Tylenol and lidocaine patches. Exam Vital Signs (past 8 hours): - 04/01/22 04:16 04/01/22 07:37 Temperature 97.1 F L 97.3 F L Pulse Rate 83 75 Respiratory Rate 17 16 Blood Pressure 132/70 122/69 Pulse Oximetry 95 99 Oxygen Flow Rate 0 Oxygen Delivery Method Room Air Oxygen Flow Rate 0 Narrative Exam Narrative: GEN:? Cachectic elderly female, Alert and oriented x 3, NAD HEENT:NC, Face symmetric CHEST: Respiratory excursions symmetric, CTAB CV: RRR, no M/R/G ABD: Soft, NT/ND, BT present in all 4 quadrants, no organomegaly or masses EXTR: warm, well perfused, no C/C/E SKIN: warm and dry, no rash NEURO: Alert and oriented x 3, nonfocal Objective Labs Result Diagrams: 04/01/22 05:13 04/01/22 05:13 Labs: Laboratory Results - last 24 hr 04/01/22 04/01/22 05:13 05:13 WBC 9.3 RBC 3.32 L Hgb 11.5 L Hct 33.8 L MCV 101.8 H MCH 34.5 H MCHC 33.9 RDW 13.3 Plt Count 352 Neut % (Auto) 63.4 Lymph % (Auto) 13.1 L [place] % (Auto) 8.7 Eos % (Auto) 14.4 H Baso % (Auto) 0.4 Neut # (Auto) 5900 Lymph # (Auto) 1200 [place] # (Auto) 800 Eos # (Auto) 1300 H Baso # (Auto) 0 Sodium 138 Potassium 4.3 Chloride 113 H Carbon Dioxide 18 L BUN 24 H Creatinine 1.19 H Estimated GFR 47 L BUN/Creatinine Ratio 20.2 Glucose 81 Calcium 8.4 PFSH Medical History Adrenal insufficiency Surgical History Status post breast reduction Status post hysterectomy Social History household members: none Smoking Status: Never smoker alcohol intake: current Discharge Plan Discharge Plan Patient Disposition: SNF Transfer to: [facility] Discharge orders & Medications Prescriptions: New lidocaine 5 % Adhesive Patch,Medicated 1 ea topical DAILY Qty: 30 0RF ciprofloxacin HCl 500 mg tablet 500 mg PO BID 2 Days Qty: 4 0RF Rx Instructions: start on 04/02 Continued tramadol 50 mg tablet See Rx Instructions .ROUTE .COMPLEX PRN (Reason: Pain (Scale Score 4-6)) Rx Instructions: 50 mg orally escitalopram oxalate [Lexapro] 10 mg Tablet 10 mg PO DAILY Follow up/Referrals: Anitra Jackson DO [Primary Care Provider] - Visit Report/Discharge Packet Instructions: DI for Prescription Opioid Use Discharge Data Primary Care Provider: Anitra Jackson Quality VTE Deep Vein Thrombosis/Pulmonary Embolism Present on Admission: No
[2022-04-01 08:52] VITALS: O2SAT 99
[2022-04-01] MEDS: ACETAMINOPHEN 325 MG TABLET 975 MG PO ×2 (08:58→14:44)
[2022-04-01] MEDS: HEPARIN 5,000 UNIT/ML VIAL 5000 UNIT SUBCUT (08:59)
[2022-04-01] MEDS: LIDOCAINE PATCH 1 EACH ADH..PATCH TOP (08:59)
[2022-04-01] MEDS: ESCITALOPRAM 10 MG TABLET PO (09:04)
[2022-04-01] MEDS: SODIUM CHLORIDE 0.9% FLUSH 10 ML IV (09:10)
--- NOTE | 2022-04-01 09:12 | CM.DPC ---
DCP Cont: Left Message for January @ [facility] to inquire about potential acceptance today. DCP spoke to Yovana @ [facility] this morning as they were following up about a message Siria, DCP left over the weekend. DCP verbalized to Yovana about the importance of urgent referral for pt to get accepted to [facility]. DCP to continue to follow. Inna Up RN/HANNAHP
[2022-04-01] MEDS: CEFEPIME 1 GM in SODIUM CHLORIDE 0.9% 100 ML IV (09:36)
--- NOTE | 2022-04-01 10:43 | PT.IPTN ---
Current Diagnoses Unspecified toxic encephalopathy (03/28/22) Physical Therapy Treatment Note M2 PT-IP Current Condition Start: 03/28/22 15:40 Freq: Status: Active Protocol: Document 03/28/22 13:55 AB (Rec: 03/28/22 15:58 AB [id number]) Physical Therapy Current Condition Current Condition Evaluation Date 03/28/22 Treatment Diagnosis hallucinations; LBP; difficulty in walking Onset Date 03/28/22 M3 PT-IP Subjective Start: 03/28/22 15:40 Freq: Status: Active Protocol: Document 04/01/22 10:43 AW (Rec: 04/01/22 11:38 AW [id number]) Subjective Physical Therapy Visit Type Type Treatment Note Visit Start Time 10:27 Visit Stop Time 10:43 Total Visit Minutes 16 Number of BIOLOGIST AIDE Visits 0 Physical Therapy Visit Comments Patient Comments agreeable to do PT M4 PT-IP Mobility and Gait Start: 03/28/22 15:40 Freq: Status: Active Protocol: Document 04/01/22 10:43 AW (Rec: 04/01/22 11:38 AW [id number]) PT-Bed Mobility Assessment Supine to Sit Supine to Sit Standby Assistance Sit to Supine Sit to Supine Standby Assistance PT-Transfer Assessment Sit to and From Stand Sit to and from Stand Contact Guard Assistance,1 Person Assistance,Use of Upper Extremities Equipment Transfer Assistive Device Gait Belt,Front Wheeled Walker Orthotic/Prosthetic Devices or Brace: No Transfers Transfer Destination Bed Transfer Technique Pt ambulated w/ FWW Transfer Ability Level of Assist Contact Guard Assistance Comments Mobility Comments Pt was lying in bed as PT arrived. She sat up EOB SBA and stood CGA with initial unsteadiness. She initially ambulated with IV pole for support but clearly needed more support due to scissoring steps, path deviation, and poor attention/safety awareness. Continued ambulation with FWW and gait quality, safety did improve. Pt returned to the room and returned to supine SBA. Gait Assessment Gait Gait Assistance Required: Standby Assistance,Contact Guard Assist,1 Person Assist Distance (Feet) 100 Able to Maintain Weight Bearing Status Yes During Gait Assistive Devices Assistive Device Gait Belt,Front Wheeled Walker Orthotic/Prosthetic Devices or Brace: No Gait Deviations General Gait Pattern Decreased Stride Length, Decreased Feet Clearance, Lateral Trunk Lean,Narrow Based Gait,Step-to Gait Factors Limiting Gait Function Factors Limiting Gait Function Decreased Activity Tolerance, Decreased Strength,Difficulty Following Directions,Limited Range of Motion,Pain,Poor Balance,Poor Safety Awareness Comments Gait Comments SBA with FWW. CGA with IV pole . PT-Balance Assessment Sitting Balance and Reactions Static Sitting Balance Ability Good Dynamic Sitting Balance Ability Fair Standing Balance and Reactions Static Standing Balance Ability Fair Dynamic Standing Balance Ability Fair Device Used FWW M5 PT-IP Objective Assessments Start: 03/28/22 15:40 Freq: Status: Active Protocol: Document 03/28/22 13:55 AB (Rec: 03/28/22 15:58 AB [id number]) Orientation Orientation/Cognition Level of Alertness Alert Orientation Name Language Function Ability Armenian as Second Language, Hard of Hearing Safety Awareness Decreased Safety Awareness Gross Range of Motion Lower Extremity ROM Assessment Within Functional Limits Strength Lower Extremity Strength Assessment Within Functional Limits Muscle Tone Muscle Tone WNL Yes M6 PT-IP Treatment Start: 03/28/22 15:40 Freq: Status: Active Protocol: Document 04/01/22 10:43 AW (Rec: 04/01/22 11:38 AW [id number]) Physical Therapy Treatment Education Education Provided Precautions,Safety M7 PT-IP Assessment and Plan Start: 03/28/22 15:40 Freq: Status: Active Protocol: Document 04/01/22 10:43 AW (Rec: 04/01/22 11:38 AW [id number]) PT Summary Assessment and Plan Potential Rehabilitation Potential Fair Summary Impairments Pain,ROM,Strength,Balance, Coordination,Sensation,Tone, Cognition,Bed Mobility, Transfers,Gait,Activity Tolerance Progress Towards Goals Progressing Toward Goals,Slow Progress due to Medical Issues ,Slow Progress due to Activity Tolerance Assessment Summary Gait deviation were apparent without use of AD. Gait quality and safety improved with use of FWW. Pt unable to use FWW at home due to space constraints and will benefit from SNF rehab to improve strength and mobility independence. Goals Bed Mobility Goal Standby Assistance Transfer Goal Standby Assistance,Front Wheeled Walker Gait Goal Standby Assistance,Front Wheel Walker Gait Distance 100 Other Goals improve bed mobility, transfers and ambulation using quad cane 150 ft SBA up/down 3 steps R rail ascending SBA Days to Meet Goals 10 Frequency of Treatment Frequency Of Treatment Once a Day Treatment Plan Physical Therapy Treatment Plan Bed Mobility Training,Transfer Training,Gait Training, Therapeutic Exercise,Balance Retraining,Post Op Education, Discharge Planning,Hot or Cold Pack,Neuromuscular Re-ed, Coordination Retraining,Manual Therapy Precautions Lumbar Precautions Log Roll,No Twisting,Limit Bending,Lifting Restriction of 10 lbs Recommendations To Nursing Amount of Assist Needed Standby Assistance Discharge Recommendations PT Discharge Recommendations Home with 24/02 Assist Available,Home Health,SNF Rehab,Home vs SNF Equipment Needed for Home Before defer to subacute rehab Discharge Transportation Needs at Discharge Wheelchair/Cabulance
[2022-04-01 12:36] LABS: COVID19 -Nasal RAPID Negative (Negative)
[2022-04-03 15:51] LABS: Osmolality, Serum 301 mOsmol/kg (280-301)
== END 2022-04-01 15:05 | DRG 91 ==
LOC: ED 11:55 → AC 16:31
PROVIDERS: Family Medicine; Internal Medicine; Student in an Organized Health Care Education/Training Program; Admitting Provider Neuromusculoskeletal Medicine, Sports Medicine; Emergency Provider Emergency Medicine; PCP Family Medicine; Referring Provider Emergency Medicine; Visit Provider Neuromusculoskeletal Medicine, Sports Medicine
DX: G92.8 Other toxic encephalopathy (principal); E43 Unspecified severe protein-calorie malnutrition; G93.41 Metabolic encephalopathy; S22.000A Wedge compression fracture of unspecified thoracic vertebra, initial encounter for closed fracture; N39.0 Urinary tract infection, site not specified; Z68.1 Body mass index [BMI] 19.9 or less, adult; T40.425A Adverse effect of tramadol, initial encounter; T40.2X5A Adverse effect of other opioids, initial encounter; R29.6 Repeated falls; R11.0 Nausea; K59.00 Constipation, unspecified; B96.5 Pseudomonas (aeruginosa) (mallei) (pseudomallei) as the cause of diseases classified elsewhere; F32.A Depression, unspecified; W19.XXXA Unspecified fall, initial encounter; Z20.822 Contact with and (suspected) exposure to COVID-19; Z66 Do not resuscitate; Z23 Encounter for immunization
CPT/HCPCS: 0013A; 36415; 70450; 74177; 80048; 80053; 80305; 80320; 80329; 81001; 82140; 82533; 82550; 82607; 82746; 83605; 83930; 84145; 84443; 84484; 85025; 85610; 85730; 87040; 87077; 87086; 87186; 87635; 91301; 93005; 96365; 97116; 97162; 97530; 99284; C9803; G0480; J0692; J0696; J0780; J1644; J2405; Q9967

== ENCOUNTER → 2022-07-17 06:17 | Outpatient (ROUT) | payer OTHER, SELFPAY ==
[2022-03-28 17:39] VITALS: BMI 13.5
[2022-07-17 06:55] LABS: Add Manual Diff / Slide Review NO; Basophils Absolute Auto 100 /uL (0-100); Basophils Percent Auto 0.7 % (0-2); Eosinophils Absolute Auto 1500 /uL (0-450); Eosinophils Percent Auto 18.9 % (2-4); Hematocrit 32.7 % (36-46); Hemoglobin 10.8 g/dL (12.0-16.0); Lymphocytes Absolute Auto 2100 /uL (1100-4500); Lymphocytes Percent Auto 25.9 % (25-40); Mean Corpuscular HGB Conc 33.1 % (30-36); Mean Corpuscular Hemoglobin 35.5 PG (26-34); Mean Corpuscular Volume 107.3 fL (80-100); Monocytes Absolute Auto 700 /uL (0-900); Monocytes Percent Auto 8.3 % (3-14); Neutrophils Absolute Auto 3700 /uL (1500-7000); Neutrophils Percent Auto 46.2 % (50-75); Platelet Count 303 X10^3/uL (150-400); Red Blood Cell Count 3.05 X10^6/uL (4.0-5.2); Red Cell Distribution Width 14.8 % (11.6-14.8)
[2022-07-17 07:29] LABS: Alanine Aminotransferase 178 IU/L (<35); Albumin 3.6 g/dL (3.5-5.0); Alkaline Phosphatase 168 U/L (38-126); Aspartate Aminotransferase 186 IU/L (14-36); Bilirubin Total 0.3 mg/dL (0.2-1.3); Blood Urea Nitrogen 40 mg/dL (7-17); Calcium 8.6 mg/dL (8.4-10.2); Carbon Dioxide 16 mmol/L (22-32); Chloride 116 mmol/L (98-107); Estimated Glomerular Filt Rate 39 mL/min (>60); Globulin 3.5 g/dL (1.7-4.1); Glucose 88 mg/dL (80-110); HEMOLYSIS 25 (0-50); Potassium 4.6 mmol/L (3.4-5.1); Sodium 140 mmol/L (137-145); Total Protein 7.1 g/dL (6.3-8.2)
[2022-07-17 07:57] LABS: Thyroid Stimulating Hormone 2.45 uIU/mL (0.47-4.68)
[2022-07-17 08:17] LABS: Vitamin B12 492 pg/mL (239-931)
== END ==
PROVIDERS: PCP Family Medicine; Visit Provider Nurse Practitioner Family
DX: R53.83 Other fatigue (principal)
CPT/HCPCS: 36415; 80053; 82607; 84443; 85025

== ENCOUNTER → 2022-07-31 06:31 | Outpatient (ROUT) | payer OTHER, SELFPAY ==
[2022-03-28 17:39] VITALS: BMI 13.5
[2022-07-31 07:58] LABS: Add Manual Diff / Slide Review NO; Basophils Absolute Auto 100 /uL (0-100); Basophils Percent Auto 0.9 % (0-2); Eosinophils Absolute Auto 1700 /uL (0-450); Eosinophils Percent Auto 21.1 % (2-4); Lymphocytes Absolute Auto 2300 /uL (1100-4500); Lymphocytes Percent Auto 28.1 % (25-40); Mean Corpuscular HGB Conc 33.4 % (30-36); Mean Corpuscular Hemoglobin 36.2 PG (26-34); Mean Corpuscular Volume 108.5 fL (80-100); Monocytes Absolute Auto 700 /uL (0-900); Monocytes Percent Auto 8.7 % (3-14); Neutrophils Absolute Auto 3300 /uL (1500-7000); Neutrophils Percent Auto 41.2 % (50-75); Platelet Count 260 X10^3/uL (150-400); Red Blood Cell Count 2.77 X10^6/uL (4.0-5.2); Red Cell Distribution Width 14.5 % (11.6-14.8)
[2022-07-31 08:24] LABS: Alanine Aminotransferase 131 IU/L (<35); Albumin 3.3 g/dL (3.5-5.0); Alkaline Phosphatase 156 U/L (38-126); Aspartate Aminotransferase 95 IU/L (14-36); BUN Creatinine Ratio 35.6 (6-22); Bilirubin Total 0.2 mg/dL (0.2-1.3); Blood Urea Nitrogen 52 mg/dL (7-17); Calcium 8.4 mg/dL (8.4-10.2); Carbon Dioxide 15 mmol/L (22-32); Chloride 116 mmol/L (98-107); Estimated Glomerular Filt Rate 37 mL/min (>60); Globulin 3.2 g/dL (1.7-4.1); Glucose 89 mg/dL (80-110); HEMOLYSIS < 15 (0-50); Potassium 4.5 mmol/L (3.4-5.1); Sodium 141 mmol/L (137-145); Total Protein 6.5 g/dL (6.3-8.2)
[2022-07-31 08:55] LABS: Cortisol AM (Before 10AM) 10.8 ug/dL (4.46-22.7)
== END ==
PROVIDERS: PCP Family Medicine; Visit Provider Nurse Practitioner Family
DX: D64.9 Anemia, unspecified (principal); N18.9 Chronic kidney disease, unspecified; E27.40 Unspecified adrenocortical insufficiency
CPT/HCPCS: 36415; 80053; 82533; 85025

== ENCOUNTER → 2023-02-19 07:07 | Outpatient (ROUT) | payer OTHER, SELFPAY ==
[2022-03-28 17:39] VITALS: BMI 13.5
[2023-02-19 07:27] LABS: Mean Corpuscular HGB Conc 33.4 % (30-36); Mean Corpuscular Hemoglobin 36.6 PG (26-34); Mean Corpuscular Volume 109.7 fL (80-100); Platelet Count 236 X10^3/uL (150-400); Red Blood Cell Count 2.73 X10^6/uL (4.0-5.2); White Blood Cell Count 7.6 X10^3/uL (4.5-11.0)
[2023-02-19 07:43] LABS: Alanine Aminotransferase 104 IU/L (<35); Albumin 3.1 g/dL (3.5-5.0); Alkaline Phosphatase 172 U/L (38-126); Aspartate Aminotransferase 120 IU/L (14-36); Bilirubin Total 0.3 mg/dL (0.2-1.3); Blood Urea Nitrogen 44 mg/dL (7-17); Calcium 8.1 mg/dL (8.4-10.2); Carbon Dioxide 17 mmol/L (22-32); Chloride 115 mmol/L (98-107); Estimated Glomerular Filt Rate 29 mL/min (>60); Glucose 80 mg/dL (80-110); HEMOLYSIS < 15 (0-50); Potassium 4.7 mmol/L (3.4-5.1); Sodium 139 mmol/L (137-145); Total Protein 6.1 g/dL (6.3-8.2)
[2023-02-19 07:58] LABS: Add Manual Diff / Slide Review YES
[2023-02-19 08:01] LABS: Neutrophils Absolute Manual 3420 /uL (3000-5900); RBC Morphology Normal Morphology; Total Cells Counted 100
== END ==
PROVIDERS: PCP Family Medicine; Visit Provider Nurse Practitioner Family
DX: D64.9 Anemia, unspecified (principal); N18.9 Chronic kidney disease, unspecified
CPT/HCPCS: 36415; 80053; 85007; 85025

== ENCOUNTER → 2023-03-26 07:06 | Outpatient (ROUT) | payer OTHER, SELFPAY ==
[2022-03-28 17:39] VITALS: BMI 13.5
[2023-03-26 08:06] LABS: Add Manual Diff / Slide Review NO; Basophils Absolute Auto 100 /uL (0-100); Basophils Percent Auto 1.3 % (0-2); Eosinophils Absolute Auto 1800 /uL (0-450); Eosinophils Percent Auto 23.6 % (2-4); Hematocrit 30.1 % (36-46); Hemoglobin 10.1 g/dL (12.0-16.0); Lymphocytes Absolute Auto 2500 /uL (1100-4500); Lymphocytes Percent Auto 31.7 % (25-40); Mean Corpuscular HGB Conc 33.4 % (30-36); Mean Corpuscular Hemoglobin 37.1 PG (26-34); Mean Corpuscular Volume 111.3 fL (80-100); Monocytes Absolute Auto 600 /uL (0-900); Monocytes Percent Auto 7.2 % (3-14); Neutrophils Absolute Auto 2800 /uL (1500-7000); Neutrophils Percent Auto 36.2 % (50-75); Platelet Count 225 X10^3/uL (150-400); Red Blood Cell Count 2.71 X10^6/uL (4.0-5.2); Red Cell Distribution Width 14.3 % (11.6-14.8); White Blood Cell Count 7.7 X10^3/uL (4.5-11.0)
[2023-03-26 08:20] LABS: Alanine Aminotransferase 60 IU/L (<35); Albumin 2.7 g/dL (3.5-5.0); Albumin Globulin Ratio 0.9 (1.0-2.8); Alkaline Phosphatase 156 U/L (38-126); Aspartate Aminotransferase 82 IU/L (14-36); BUN Creatinine Ratio 21.2 (6-22); Bilirubin Total 0.2 mg/dL (0.2-1.3); Blood Urea Nitrogen 40 mg/dL (7-17); Calcium 8.1 mg/dL (8.4-10.2); Carbon Dioxide 14 mmol/L (22-32); Chloride 117 mmol/L (98-107); Estimated Glomerular Filt Rate 27 mL/min (>60); Glucose 74 mg/dL (80-110); HEMOLYSIS < 15 (0-50); Sodium 138 mmol/L (137-145); Total Protein 5.7 g/dL (6.3-8.2)
[2023-03-26 09:03] LABS: Potassium 5.4 mmol/L (3.4-5.1)
[2023-03-26 09:10] LABS: Macrocytosis 1+
== END ==
PROVIDERS: PCP Family Medicine; Visit Provider Nurse Practitioner Family
DX: N18.9 Chronic kidney disease, unspecified (principal); D63.1 Anemia in chronic kidney disease; R79.89 Other specified abnormal findings of blood chemistry
CPT/HCPCS: 36415; 80053; 85025

== ENCOUNTER → 2023-04-23 07:18 | Outpatient (ROUT) | payer OTHER, SELFPAY ==
[2022-03-28 17:39] VITALS: BMI 13.5
[2023-04-23 08:15] LABS: BUN Creatinine Ratio 21.1 (6-22); Blood Urea Nitrogen 39 mg/dL (7-17); Calcium 8.7 mg/dL (8.4-10.2); Carbon Dioxide 17 mmol/L (22-32); Chloride 116 mmol/L (98-107); Estimated Glomerular Filt Rate 27 mL/min (>60); Glucose 77 mg/dL (80-110); HEMOLYSIS < 15 (0-50); Potassium 5.2 mmol/L (3.4-5.1); Sodium 138 mmol/L (137-145)
== END ==
PROVIDERS: PCP Family Medicine; Visit Provider Nurse Practitioner Family
DX: E87.5 Hyperkalemia (principal); N18.9 Chronic kidney disease, unspecified
CPT/HCPCS: 36415; 80048

== ENCOUNTER 2023-06-16 10:39 | Emergency (ER) | payer OTHER, SELFPAY ==
[2022-03-28 17:39] VITALS: BMI 13.5
[2023-06-16] VITALS (8 sets, daily range): BP systolic 92–165; BP diastolic 61–83; PULSE 65–75; RESP 16–17; TEMP 37.1; O2SAT 96–100; BMI 12.0
--- NOTE | 2023-06-16 10:53 | DI.RAD.S_ITS ---
PROCEDURE: XR HIP W PEL IF DONE LT 2V INDICATIONS: fall TECHNIQUE: AP pelvis with lateral view(s) of the left hip(s). COMPARISON: [facility], , XR HIP W PEL IF DONE LT 2V, 03/20/2022, 18:34. FINDINGS: Bones: No fractures or dislocations. Pelvic ring appears intact. No suspicious bony lesions. Soft tissues: The visualized bowel gas pattern is normal. No suspicious soft tissue calcifications. IMPRESSION: No visualized acute fracture or dislocation. However, if clinical concern and/or pain persist, short interval imaging followup in 7-10 days is recommended, as occult injury cannot be definitively excluded. Dictated by: Radha Zhu M.D. on 06/16/2023 at 11:50 Approved by: Radha Zhu M.D. on 06/16/2023 at 11:50
--- NOTE | 2023-06-16 11:03 | DI.RAD.S_ITS ---
PROCEDURE: XR CHEST 1V INDICATIONS: chest pain TECHNIQUE: One view of the chest was acquired. COMPARISON: [facility], CR, XR CHEST 1V, 11/15/2020, 16:59. FINDINGS: Surgical changes and devices: Cholecystectomy clips. Lungs and pleura: Lungs are clear. No pleural effusions or pneumothorax. Lungs are hyperexpanded. Mediastinum: Mediastinal contours appear normal. Heart size is prominent. Bones and chest wall: No suspicious bony lesions. Overlying soft tissues appear unremarkable. IMPRESSION: No acute pulmonary process. Dictated by: Radha Zhu M.D. on 06/16/2023 at 11:49 Approved by: Radha Zhu M.D. on 06/16/2023 at 11:49
--- NOTE | 2023-06-16 11:53 | ED.SYNCOPE ---
HPI - Syncope General Chief Complaint: Syncope Stated Complaint: lt hip pain Time Seen by Provider: 06/16/23 10:53 Source: EMS Mode of arrival: EMS History of Present Illness HPI narrative: Patient is a 78-year-old female history of remote pancreatic cancer, 1 kidney, presents today with left hip pain. She reports that about 10 days ago she had an out-of-body experience where she looked down on herself and did not recognize the close and heard people talk about her blood pressure. And then she woke up. Since this event she is had ongoing left hip pain hurts to move and walk. She is taking tramadol which does not seem to be helping. She does have a wheelchair and a walker. She is not had any further syncopal episodes she has no numbness tingling or weakness. She is no other symptoms. She is afebrile. Blood pressure initially is a little low in the 90s she is extremely thin she thinks that she always has low blood pressure. Related Data Home Medications Medication Instructions Recorded Confirmed escitalopram oxalate 10 mg tablet 10 mg PO DAILY 03/29/22 03/29/22 (Lexapro) Previous Rx's Medication Instructions Recorded lidocaine 5 % topical patch 1 ea topical DAILY #30 ea 04/01/22 tramadol 50 mg tablet 50 mg PO Q6H PRN Pain (Scale Score 04/01/22 4-6) #30 tabs hydrocodone 5 mg-acetaminophen 325 1 tab PO Q6H PRN pain #10 tabs 06/16/23 mg tablet Allergies Allergy/AdvReac Type Severity Reaction Status Date / Time aspirin [ASPIRIN] Allergy Unknown kidney Verified 06/16/23 11:00 probs ibuprofen [IBUPROFEN] Allergy Unknown Verified 06/16/23 11:00 Iodine and Iodide Containing Allergy Unknown pt only Verified 06/16/23 11:00 Produc has one [IODINE AND IODIDE kidney CONTAINING PRODUC] Review of Systems Review of Systems ROS Unobtainable: All systems reviewed & are unremarkable except as noted in HPI and below Patient History Medical History Adrenal insufficiency Surgical History Status post breast reduction Status post hysterectomy Social History household members: none Smoking Status: Never smoker alcohol intake: current Smoking Status: Never smoker tobacco type: cigarettes alcohol intake frequency: holidays/special occasions only Alcohol type: wine Substance Use Type: does not use Exam Initial Vital Signs Initial Vital Signs: Vital Signs Temperature 98.7 F 06/16/23 10:57 Pulse Rate 74 06/16/23 10:57 Respiratory Rate 17 06/16/23 10:57 Blood Pressure 92/61 06/16/23 10:57 Pulse Oximetry 96 06/16/23 10:57 Oxygen Delivery Method Room Air 06/16/23 10:57 GENERAL: Thin chronically ill 78-year-old female and in no acute distress. HEENT: Head atraumatic,EOMI, pupils reactive, face symmetric, moist mucous membrane CARDIOVASCULAR: Regular rate and rhythm without murmurs, rubs or gallops. RESPIRATORY: Breath sounds equal bilaterally, no wheezes rales or rhonchi. ABDOMEN: Soft, nontender. Normoactive bowel sounds all 4 quadrants. No guarding or rebound. EXTREMITIES: Normal range of motion, no clubbing or edema. Neurovascularly intact Pain left hip with internal external rotation distal pedal intact NEUROLOGICAL: Alert and oriented x4. SKIN: Slightly ashen color warm to touch Course Orders Ordered: ED Orders 06/16/23 10:53 XR hip w pel if done LT 2V Stat 06/16/23 11:03 XR chest 1V Stat EKG-12 Lead Stat 06/16/23 11:52 Blood Culture Stat Complete Blood Count AUTO DIFF Stat Comprehensive Metabolic Panel Stat Lactate (Lactic Acid) Stat Lipase Stat Magnesium Stat PTT Partial Thromboplastin Tyron Stat Prothrombin Time INR Stat Troponin & CK Cardiac Panel Stat 06/16/23 11:58 CT pelvis wo con Stat 06/16/23 12:30 GI Panel (Film Array) Stat Discontinued Medications Hydrocodone Bitart/Acetaminophen (Hydrocodone/Acet 5/325 Tablet) 1 tab PO NOW ONE Stop: 06/16/23 11:59 Last Admin: 06/16/23 12:42 Dose: 1 tab Documented By: MALKA Sodium Chloride (Normal Saline 0.9%) 1,000 mls @ 1,000 mls/hr IV BOLUS ONE Stop: 06/16/23 13:06 Last Infusion: 06/16/23 14:52 Dose: Infused Documented By: Admin: 06/16/23 12:42 Dose: 1,000 mls/hr Documented By: MALKA Vital Signs Vital signs: Vital Signs - 8 hr 06/16/23 10:57 06/16/23 12:00 06/16/23 12:30 Temperature 98.7 F Pulse Rate 74 66 65 Respiratory Rate 17 16 16 Blood Pressure 92/61 144/72 H 150/83 H Pulse Oximetry 96 99 99 Oxygen Delivery Method Room Air Room Air Room Air 06/16/23 13:00 06/16/23 13:30 06/16/23 14:00 Temperature Pulse Rate 66 66 75 Respiratory Rate 17 16 17 Blood Pressure 148/77 H 165/75 H 128/70 Pulse Oximetry 99 99 98 Oxygen Delivery Method Room Air Room Air Room Air 06/16/23 14:30 06/16/23 15:47 Temperature Pulse Rate 75 73 Respiratory Rate 16 16 Blood Pressure 126/74 135/76 Pulse Oximetry 99 100 Oxygen Delivery Method Room Air Room Air MDM - Syncope Lab Data 06/16/23 11:52 06/16/23 11:52 Labs: Lab Results 06/16/23 06/16/23 Range/Units 11:52 12:30 WBC 9.9 (4.5-11.0) X10^3/uL RBC 2.91 L (4.0-5.2) X10^6/uL Hgb 10.7 L (12.0-16.0) g/dL Hct 32.1 L (36-46) % MCV 110.2 H (80-100) fL MCH 36.8 H (26-34) PG MCHC 33.3 (30-36) % RDW 14.7 (11.6-14.8) % Plt Count 358 (150-400) X10^3/uL Neut % (Auto) 72.9 (50-75) % Lymph % (Auto) 15.6 L (25-40) % [place] % (Auto) 6.0 (3-14) % Eos % (Auto) 4.9 H (2-4) % Baso % (Auto) 0.6 (0-2) % Neut # (Auto) 7200 H (4026-7113) /uL Lymph # (Auto) 1500 (2853-4190) /uL [place] # (Auto) 600 (0-900) /uL Eos # (Auto) 500 H (0-450) /uL Baso # (Auto) 100 (0-100) /uL RBC Morphology Norm PT 11.8 (10.1-12.7) SECONDS INR 1.0 (0.9-1.3) APTT 30 (26-36) SECONDS Sodium 139 (137-145) mmol/L Potassium 4.5 (3.4-5.1) mmol/L Chloride 115 H (98-107) mmol/L Carbon Dioxide 15 L (22-32) mmol/L BUN 47 H (7-17) mg/dL Creatinine 2.05 H (0.52-1.04) mg/dL Estimated GFR 24 L (>60) mL/min BUN/Creatinine Ratio 22.9 H (6-22) Glucose 118 H (80-110) mg/dL Lactate 1.3 (0.7-2.1) mmol/L Calcium 9.2 (8.4-10.2) mg/dL Magnesium 2.0 (1.6-2.3) mg/dL Total Bilirubin 0.6 (0.2-1.3) mg/dL AST 96 H (14-36) IU/L ALT 82 H (<35) IU/L Alkaline Phosphatase 221 H (38-126) U/L Total Creatine Kinase 33 (30-135) U/L Troponin I < 0.012 (0.01-0.034) ng/mL Total Protein 6.7 (6.3-8.2) g/dL Albumin 3.2 L (3.5-5.0) g/dL Globulin 3.5 (1.7-4.1) g/dL Albumin/Globulin Ratio 0.9 L (1.0-2.8) Lipase < 10 L (23-300) U/L Stl C. cayetanensis PCR Not detected (Not Detect) Stool Rotavirus (PCR) Not detected (Not Detect) Stool Adenovirus (PCR) Not detected (Not Detect) Stool Astrovirus (PCR) Not detected (Not Detect) Stool Cryptosporidium PCR Not detected (Not Detect) Stl E.coli Shiga Tox PCR Not detected (Not Detect) St Sh/Enteroin Ecoli PCR Not detected (Not Detect) Stl Enterotoxigenic E PCR Not detected (Not Detect) Stool EPEC (PCR) Not detected (Not Detect) Stl E. histolytica PCR Not detected (Not Detect) Stool Giardia Lamblia PCR Not detected (Not Detect) Stool Sapovirus (PCR) Not detected (Not Detect) Stl P. shigelloides PCR Not detected (Not Detect) St Y.enterocolitica PCR Not detected (Not Detect) Stool Vibrio (PCR) Not detected (Not Detect) Stl Vibrio cholerae PCR Not detected (Not Detect) Stl Enteroaggr Ecoli PCR Not detected (Not Detect) Stl Norovirus GI/GII PCR Not detected (Not Detect) Campylobacter (PCR) Not detected (Not Detect) C. difficile Tox (PCR) Not detected (Not Detect) Salmonella (PCR) Not detected (Not Detect) Imaging Data CT pelvis: Radiologist's Impression: PROCEDURE: CT PEL WO CON INDICATIONS: pain left hip TECHNIQUE: Noncontrast 3 mm axial sections acquired through the bony pelvis, with coronal and sagittal reformatting. COMPARISON: CT, CT ABDOMEN PELVIS W CON, 03/28/2022, 13:51. [facility], CR, XR HIP W PEL IF DONE LT 2V, 06/16/2023, 11:05. FINDINGS: Image quality: Excellent. Bones: No visualized fracture or dislocation. Degenerative arthritic changes are present at the hips bilaterally. Soft tissues: There is diffuse circumferential thickening at the rectosigmoid junction with luminal narrowing. Surrounding fat stranding is present. No focal fluid collection. The intestinal gas pattern is nonobstructive. IMPRESSION: No visualized fracture. If concern persists for occult injury, MRI may be obtained. Prominent circumferential rectosigmoid with surrounding perirectal fat inflammatory change. Findings may be related colitis/proctitis. Recommend correlation patient's symptoms and short interval imaging follow-up to document resolution exclude presence of underlying mass. Alternately, colonoscopy may be obtained as follow-up. Dictated by: Radha Zhu M.D. on 06/16/2023 at 14:11 Chest x-ray: Radiologist's Impression: PROCEDURE: XR CHEST 1V INDICATIONS: chest pain TECHNIQUE: One view of the chest was acquired. COMPARISON: [facility], CR, XR CHEST 1V, 11/15/2020, 16:59. FINDINGS: Surgical changes and devices: Cholecystectomy clips. Lungs and pleura: Lungs are clear. No pleural effusions or pneumothorax. Lungs are hyperexpanded. Mediastinum: Mediastinal contours appear normal. Heart size is prominent. Bones and chest wall: No suspicious bony lesions. Overlying soft tissues appear unremarkable. IMPRESSION: No acute pulmonary process. Dictated by: Radha Zhu M.D. on 06/16/2023 at 11:49 Extremity x-ray #1: Radiologist's Impression: PROCEDURE: XR HIP W PEL IF DONE LT 2V INDICATIONS: fall TECHNIQUE: AP pelvis with lateral view(s) of the left hip(s). COMPARISON: [facility], CR, XR HIP W PEL IF DONE LT 2V, 03/20/2022, 18:34. FINDINGS: Bones: No fractures or dislocations. Pelvic ring appears intact. No suspicious bony lesions. Soft tissues: The visualized bowel gas pattern is normal. No suspicious soft tissue calcifications. IMPRESSION: No visualized acute fracture or dislocation. However, if clinical concern and/or pain persist, short interval imaging followup in 7-10 days is recommended, as occult injury cannot be definitively excluded. Dictated by: Radha Zhu M.D. on 06/16/2023 at 11:50 ECG Data Interpretation: Sinus rhythm rate 66 CT interval 192 QRS 132 QTC 482 left bundle-branch bloc. New left bundle-branch from [address] [facility] Narrative Medical decision making narrative: Patient 78-year-old female chronically ill presenting today with ongoing left hip pain ever syncopal episode 10 days ago. Blood work has been reviewed overall reassuring no significant clinical abnormalities. She is quite tender on exam with her left hip initial x-ray was negative CT pelvis does not show any fracture. She is given [place] which helps a lot with her pain. Blood work has been reviewed she is stable anemia with a hemoglobin 10.7 hematocrit 32.1 no leukocytosis. Electrolytes also are stable she is chronically elevated chloride at 1:15 a.m. bicarb is 15 previously 17 BUN 47 and creatinine 2.0. Creatinine is up a little today previously was 1.8. Patient is symptoms improved actually with a L of fluid and Pen[place]. I think she is a little dehydrated with an elevated creatinine but not too bad off her baseline. Blood pressure also improved with her fluid. Initial blood pressure was 92/61 and actually got up as high as 165/75. She is not having any chest pain or shortness of breath. She has a new left bundle-branch block unsure significance of this. She is no chest pain and a negative troponin. Discharge Plan Departure Patient Disposition: Home Clinical Impression: Acute pain of left hip Instructions: DI for Hip Pain Activity Restrictions/Additional Instructions: *You have been diagnosed with left hip pain *What to do: At this time no fracture. Walk with walker if needed *Continue to take medications as directed Pen[place] 1 tablet every 6 hours if needed for severe *Follow up with your primary care provider in 2-3 days or call [phone] *Return to ER if you should have increasing pain numbness tingling weakness or any new, worsening or concerning symptoms Prescriptions: New hydrocodone-acetaminophen 5-325 mg tablet 1 tab PO Q6H PRN (Reason: pain) Qty: 10 0RF No Action escitalopram oxalate [Lexapro] 10 mg Tablet 10 mg PO DAILY lidocaine 5 % Adhesive Patch,Medicated 1 ea topical DAILY Qty: 30 0RF tramadol 50 mg tablet 50 mg PO Q6H PRN (Reason: Pain (Scale Score 4-6)) Qty: 30 0RF Referrals: Anitra Jackson DO [Primary Care Provider] - Stand Alone Forms: Patient Portal/API
--- NOTE | 2023-06-16 11:58 | DI.CT.S_ITS ---
PROCEDURE: CT PEL WO CON INDICATIONS: pain left hip TECHNIQUE: Noncontrast 3 mm axial sections acquired through the bony pelvis, with coronal and sagittal reformatting. COMPARISON: CT, CT ABDOMEN PELVIS W CON, 03/28/2022, 13:51. [facility], CR, XR HIP W PEL IF DONE LT 2V, 06/16/2023, 11:05. FINDINGS: Image quality: Excellent. Bones: No visualized fracture or dislocation. Degenerative arthritic changes are present at the hips bilaterally. Soft tissues: There is diffuse circumferential thickening at the rectosigmoid junction with luminal narrowing. Surrounding fat stranding is present. No focal fluid collection. The intestinal gas pattern is nonobstructive. IMPRESSION: No visualized fracture. If concern persists for occult injury, MRI may be obtained. Prominent circumferential rectosigmoid with surrounding perirectal fat inflammatory change. Findings may be related colitis/proctitis. Recommend correlation patient's symptoms and short interval imaging follow-up to document resolution exclude presence of underlying mass. Alternately, colonoscopy may be obtained as follow-up. Dictated by: Radha Zhu M.D. on 06/16/2023 at 14:11 Approved by: Radha Zhu M.D. on 06/16/2023 at 14:14
[2023-06-16 12:01] LABS: Add Manual Diff / Slide Review NO; Basophils Absolute Auto 100 /uL (0-100); Basophils Percent Auto 0.6 % (0-2); Eosinophils Absolute Auto 500 /uL (0-450); Eosinophils Percent Auto 4.9 % (2-4); Hematocrit 32.1 % (36-46); Hemoglobin 10.7 g/dL (12.0-16.0); Lymphocytes Absolute Auto 1500 /uL (1100-4500); Lymphocytes Percent Auto 15.6 % (25-40); Mean Corpuscular HGB Conc 33.3 % (30-36); Mean Corpuscular Hemoglobin 36.8 PG (26-34); Mean Corpuscular Volume 110.2 fL (80-100); Monocytes Absolute Auto 600 /uL (0-900); Neutrophils Absolute Auto 7200 /uL (1500-7000); Neutrophils Percent Auto 72.9 % (50-75); Platelet Count 358 X10^3/uL (150-400); Red Blood Cell Count 2.91 X10^6/uL (4.0-5.2); Red Cell Distribution Width 14.7 % (11.6-14.8); White Blood Cell Count 9.9 X10^3/uL (4.5-11.0)
[2023-06-16 12:13] LABS: Prothrombin Time 11.8 SECONDS (10.1-12.7)
[2023-06-16 12:16] LABS: PTT Partial Thromboplastin Tim 30 SECONDS (26-36)
[2023-06-16 12:26] LABS: Alanine Aminotransferase 82 IU/L (<35); Albumin 3.2 g/dL (3.5-5.0); Albumin Globulin Ratio 0.9 (1.0-2.8); Alkaline Phosphatase 221 U/L (38-126); Aspartate Aminotransferase 96 IU/L (14-36); BUN Creatinine Ratio 22.9 (6-22); Bilirubin Total 0.6 mg/dL (0.2-1.3); Blood Urea Nitrogen 47 mg/dL (7-17); Calcium 9.2 mg/dL (8.4-10.2); Carbon Dioxide 15 mmol/L (22-32); Chloride 115 mmol/L (98-107); Creatine Kinase 33 U/L (30-135); Estimated Glomerular Filt Rate 24 mL/min (>60); Globulin 3.5 g/dL (1.7-4.1); Glucose 118 mg/dL (80-110); HEMOLYSIS < 15 (0-50); Potassium 4.5 mmol/L (3.4-5.1); Sodium 139 mmol/L (137-145); Total Protein 6.7 g/dL (6.3-8.2)
[2023-06-16 12:28] LABS: Lipase < 10 U/L (23-300)
[2023-06-16 12:29] LABS: Lactate (Lactic Acid) 1.3 mmol/L (0.7-2.1)
[2023-06-16 12:36] LABS: Troponin I < 0.012 ng/mL (0.01-0.034)
[2023-06-16] MEDS: SODIUM CHLORIDE 0.9% 1,000 ML 1000 ML IV (12:42)
[2023-06-16] MEDS: HYDROCODONE/ACET 5/325 TABLET 1 TAB PO (12:42)
[2023-06-16 13:01] LABS: RBC Morphology Norm
[2023-06-16 13:38] LABS: Adenovirus F 40/41 Not Detected (Not Detect); Astrovirus Not Detected (Not Detect); Campylobacter Not Detected (Not Detect); Clostridium difficile toxin AB Not Detected (Not Detect); Cryptosporidium Not Detected (Not Detect); Cyclospora cayetanensis Not Detected (Not Detect); Entamoeba histolytica Not Detected (Not Detect); Enteroaggregative E.coli Not Detected (Not Detect); Enteropathogenic E.coli Not Detected (Not Detect); Enterotoxigenic E.coli It/st Not Detected (Not Detect); Giardia lamblia Not Detected (Not Detect); Norovirus GI/GII Not Detected (Not Detect); Plesiomonsa shigelloides Not Detected (Not Detect); Rotavirus A Not Detected (Not Detect); Salmonella Not Detected (Not Detect); Sapovirus Not Detected (Not Detect); Shiga-like toxin-prod E.coli Not Detected (Not Detect); Shigella/Enteroinvasive E.coli Not Detected (Not Detect); Vibrio Not Detected (Not Detect); Vibrio cholerae Not Detected (Not Detect); Yersinia enterocolitica Not Detected (Not Detect)
--- NOTE | 2023-06-16 14:50 | PC.NURSE ---
Pt reports pain in her left groin/hip region of 8/10. Pt is able to stand, walk and push leg against resistance.
== END 2023-06-16 16:01 | disposition home or self-care (01) ==
PROVIDERS: Emergency Provider Emergency Medicine; PCP Family Medicine
DX: M25.552 Pain in left hip (principal); R07.9 Chest pain, unspecified; W19.XXXD Unspecified fall, subsequent encounter
CPT/HCPCS: 36415; 71045; 72192; 73502; 80053; 82550; 83605; 83690; 83735; 84484; 85025; 85610; 85730; 87040; 87507; 93005; 93010; 96360; 96361; 99284